=== PATIENT | female | born 1955 | race Caucasian/White ===

== ENCOUNTER 2017-01-10 05:19 | Emergency (ER) | payer MEDICAID ==
[2017-01-10 05:35] VITALS: BP 136/89; PULSE 92; RESP 18; TEMP 98.1; O2SAT 95
--- NOTE | 2017-01-10 05:54 | EDPHY ---
H & P Time Seen by Provider: 01/10/17 05:41 HPI/ROS: HPI Out of pain medication. Out of pain medication. 61-year-old female by private vehicle. She has a history of chronic pain and chronic opiate usage. She goes to a pain clinic. She is to get refills of her narcotic pain medications today. She reports that she is currently out of pain medication an feels like she is starting to withdraw. She is apparently being cut down on her pain medications to wean her off of opiates. She states she does have clonidine at home. She complains of some burning in both her legs which she states she gets when she is not getting enough pain medication. She denies any other complaint. ROS: Constitutional: No fever, no chills. No weakness. As above. Respiratory: No cough. No shortness of breath. Cardiac: No chest pain, no palpitations. Gastrointestinal: No abdominal pain, no vomiting, no diarrhea. Musculoskeletal: As above. Neurological: No headache. No focal weakness or altered sensation. Past medical history: As above. Chronic pain, costochondritis, basal cell carcinoma, hypertension, hyperlipidemia. Social history: Here by herself. As above. Physical Exam: General Appearance: Alert, no distress. This patient is responding to questions appropriately and in full sentences. This patient appears well- hydrated and well-nourished. Neurological: Motor sensory function is grossly intact. Cranial nerves are normal. Gait is normal. Skin: Warm and dry, no rashes. Musculoskeletal: Neck is supple and nontender. Extremities are symmetrical. All joints range without pain or impingement. Psychiatric: No agitation. No depression. Database: EKG: Imaging: Procedures: Emergency department course: Her vital signs were reviewed. During my evaluation I explained to her that I did not feel comfortable giving her narcotic pain medications at this time in the emergency department. She does not appear to be in any distress. Her vital signs are unremarkable. She has follow-up at her pain clinic today to get refills of her narcotic pain medications. She understood my reasoning for not giving her any narcotics in the emergency department. She fell comfortable going home. She will follow up as she is supposed to to refill her prescriptions. All of her questions were answered. She was discharged in good condition. Differential Diagnosis: The differential diagnosis on this patient includes but is not limited to chronic narcotic pain medication dependence. Acute withdrawal syndrome unlikely. This represents a partial list of diagnoses considered. These considerations are based on history, physical exam, past history, reassessment and diagnostic testing. Smoking Status: Heavy smoker Constitutional: Initial Vital Signs Temperature (C) 36.7 C 01/10/17 05:25 Heart Rate 92 01/10/17 05:25 Respiratory Rate 18 01/10/17 05:25 Blood Pressure 136/89 H 01/10/17 05:25 O2 Sat (%) 95 01/10/17 05:25 O2 Delivery Mode Room Air Allergies/Adverse Reactions: ciprofloxacin Allergy (Verified 01/10/17 05:36) codeine Allergy (Verified 01/10/17 05:36) fentanyl Allergy (Verified 01/10/17 05:36) nitrofurantoin [From Macrobid] Allergy (Verified 01/10/17 05:36) nitrofurantoin macrocrystalline [From Macrobid] Allergy (Verified 01/10/17 05:36 ) Home Medications: Medication Instructions Recorded Acetaminophen [Tylenol] 500 mg PO TID PRN 02/16/16 Atorvastatin Calcium [Lipitor] 40 mg PO DAILY 02/16/16 Clopidogrel Bisulfate [Clopidogrel] 75 mg PO DAILY 02/16/16 Herbals/Supplements -Info Only 1 ea PO DAILY 02/16/16 Metoprolol Tartrate [Lopressor] 25 mg PO DAILY 02/16/16 Ondansetron HCl [Zofran] 4 mg PO Q6 PRN 02/16/16 Pantoprazole Sodium [Protonix] 40 mg PO DAILY 02/16/16 hydrOXYzine HCL [Vistaril] 25 mg PO HS 02/16/16 morphINE IR [morphINE IR 15 mg 15 mg PO TID PRN 02/16/16 (RX)] oxyCODONE HCL [Oxycontin] 60 mg PO BID 02/16/16 oxyCODONE IR [Oxycodone Ir (RX)] 30 mg PO TID PRN 02/16/16 Azithromycin 250 mg PO DAILY #5 tablet 08/30/16 Departure - Departure Disposition: Home, Routine, Self-Care Clinical Impression: Narcotic dependence Condition: Good Instructions: Narcotic Pain Management (ED) Additional Instructions: Read and follow provided instructions. Follow-up as scheduled today for refill of your prescription pain medications. Take medication as prescribed. Return to the emergency department for worsening symptoms or other serious concerns. Referrals: Juventino Bliss, [Primary Care Provider] - As per Instructions
== END 2017-01-10 05:45 | disposition home or self-care (01) ==
DX: F11.20 Opioid dependence, uncomplicated (principal); I10 Essential (primary) hypertension; F17.200 Nicotine dependence, unspecified, uncomplicated; Z85.828 Personal history of other malignant neoplasm of skin

== ENCOUNTER 2017-05-07 13:29 | Emergency (ER) | payer MEDICAID ==
[2017-05-07 13:38] VITALS: BP 123/85; PULSE 124; RESP 25; TEMP 98.2
[2017-05-07 14:46] VITALS: O2SAT 86
--- NOTE | 2017-05-07 14:51 | EDPHY ---
H & P Time Seen by Provider: 05/07/17 14:35 HPI/ROS: CHIEF COMPLAINT: Right-sided rib pain HISTORY OF PRESENT ILLNESS: This patient is a 61 year old female with history or COPD complaining of right sided rib pain and a 3 day history of worsening cough and shortness of breath. She states that she generally has a cough, but that it has been harder to breathe over the past week, and her right side began to hurt a few days ago. She endorses subjective fever, chills, and runny nose also beginning around three days ago. She does use an inhaler as needed to treat symptoms of COPD, but states she is not currently on home oxygen. She is tachycardic, which she states is abnormal for her. She denies pain or swelling in her calves, or history of blood clots. She states she is seen at the pain clinic for chronic back and foot pain and neuropathy, but her pain medication has not relieved the new pain in her right side. REVIEW OF SYSTEMS: Constitutional: Subjective fever, chills Eyes: No visual changes ENT: Rhinorrhea, no sore throat Respiratory: Cough, shortness of breath Cardiac: Tachycardic Gastrointestinal: No nausea, no vomiting, no abdominal pain Genitourinary: No hematuria, no dysuria Musculoskeletal: Right sided rib pain. No leg pain or swelling Skin: No rash Neurological: No headache, no numbness, no weakness Psychiatric: No depression Past Medical/Surgical History: COPD (Inhaler prn) Chronic back and foot pain (Oxycodone) Neuropathy Coronary artery disease (formerly on Plavix) Cholecystectomy Social History: Current smoker. Smoking Status: Heavy smoker Physical Exam: General Appearance: Alert, no distress. Eyes: Pupils equal and round, no conjunctival pallor or injection ENT, Mouth: Mucous membranes moist Neck: Normal inspection Respiratory: Lungs are clear to auscultation. SpO2 90 Cardiovascular: Regular tachycardia. Chest: Tenderness to right lower anterior ribs. Gastrointestinal: Abdomen is soft and non- tender Neurological: A&O, nonfocal, normal gait Skin: Warm and dry, no rash Extremities: Nontender, no pedal edema Psychiatric: Mood and affect normal Constitutional: Initial Vital Signs Temperature (C) 36.8 C 05/07/17 13:36 Heart Rate 124 H 05/07/17 13:36 Respiratory Rate 25 H 05/07/17 13:36 Blood Pressure 123/85 H 05/07/17 13:36 O2 Sat (%) 90 L 05/07/17 13:36 O2 Delivery Mode Room Air Allergies/Adverse Reactions: ciprofloxacin Allergy (Verified 01/10/17 05:36) codeine Allergy (Verified 01/10/17 05:36) fentanyl Allergy (Verified 01/10/17 05:36) nitrofurantoin [From Macrobid] Allergy (Verified 01/10/17 05:36) nitrofurantoin macrocrystalline [From Macrobid] Allergy (Verified 01/10/17 05:36 ) Home Medications: Medication Instructions Recorded Acetaminophen [Tylenol] 500 mg PO TID PRN 02/16/16 Atorvastatin Calcium [Lipitor] 40 mg PO DAILY 02/16/16 Herbals/Supplements -Info Only 1 ea PO DAILY 02/16/16 Metoprolol Tartrate [Lopressor] 25 mg PO DAILY 02/16/16 Ondansetron HCl [Zofran] 4 mg PO Q6 PRN 02/16/16 Pantoprazole Sodium [Protonix] 40 mg PO DAILY 02/16/16 hydrOXYzine HCL [Vistaril] 25 mg PO HS 02/16/16 morphINE IR [morphINE IR 15 mg 15 mg PO TID PRN 02/16/16 (RX)] oxyCODONE HCL [Oxycontin] 60 mg PO BID 02/16/16 oxyCODONE IR [Oxycodone Ir (RX)] 30 mg PO TID PRN 02/16/16 Proair Hfa 05/07/17 Medical Decision Making - Diagnostics Imaging Results: Imaging Impressions Chest X-Ray 05/07/17 15:01 Impression: 1. New 3 cm left lower lobe lung mass. Recommend chest CT with IV contrast for further evaluation. 2. Chronic coronary artery disease. 3. COPD. 4. No source for right upper quadrant pain identified. If the patient receives a chest CT, consider including the abdomen and pelvis. Results discussed with Dr. Kwok. ED Course/Re-evaluation: Clinical presentation concerning for pneumonia versus pulmonary embolism. Chest x-ray obtained and reveals atelectasis at the left base, but no evidence of infiltrate. D-dimer is elevated at 1.38, so CT pulmonary angiogram ordered to rule out pulmonary embolism. 16:19 Reassessed patient. Explained the laboratory and x-ray findings. There is no evidence of pneumonia and D-dimer is elevated. I suspect that she has a pulmonary embolism. CT pulmonary angiogram ordered. The patient is reluctant to have this test because of claustrophobia. She agrees to having the test after IV Ativan. 16:26 this patient left the emergency department without letting anyone know. We attempted to locate her, but she was not on the hospital grounds. Differential Diagnosis: Differential diagnosis includes though it is not limited to pneumonia, pneumothorax, pulmonary embolism, aortic dissection, pericarditis, acute coronary syndrome. - Data Points Laboratory Results: Laboratory Results 05/07/17 14:30 05/07/17 14:30 05/07/17 05/07/17 05/07/17 14:30 14:30 14:30 WBC 13.50 10^3/uL H 10^3/uL (3.80-9.50) RBC 5.26 10^6/uL 10^6/uL (4.18-5.33) Hgb 12.7 g/dL g/dL (12.6-16.3) Hct 41.0 % % (38.0-47.0) MCV 77.9 fL L fL (81.5-99.8) MCH 24.1 pg L pg (27.9-34.1) MCHC 31.0 g/dL L g/dL (32.4-36.7) RDW 22.5 % H % (11.5-15.2) Plt Count 590 10^3/uL H 10^3/uL (150-400) MPV 9.0 fL fL (8.7-11.7) Neut % (Auto) 77.5 % H % (39.3-74.2) Lymph % (Auto) 11.6 % L % (15.0-45.0) [place] % (Auto) 9.9 % % (4.5-13.0) Eos % (Auto) 0.1 % L % (0.6-7.6) Baso % (Auto) 0.4 % % (0.3-1.7) Nucleat RBC Rel Count 0.0 % % (0.0-0.2) Absolute Neuts (auto) 10.45 10^3/uL H 10^3/uL (1.70-6.50) Absolute Lymphs (auto) 1.57 10^3/uL 10^3/uL (1.00-3.00) Absolute Monos (auto) 1.34 10^3/uL H 10^3/uL (0.30-0.80) Absolute Eos (auto) 0.02 10^3/uL L 10^3/uL (0.03-0.40) Absolute Basos (auto) 0.05 10^3/uL 10^3/uL (0.02-0.10) Absolute Nucleated RBC 0.00 10^3/uL 10^3/uL (0-0.01) Immature Gran % 0.5 % % (0.0-1.1) Immature Gran # 0.07 10^3/uL 10^3/uL (0.00-0.10) Platelet Estimate INCREASED H (ADEQ) Polychromasia 1+ H Hypochromasia 2+ H Microcytic Cells 2+ H Oval Macrocytes 1+ H D-Dimer 1.38 ug/mLFEU H ug/mLFEU (0.00-0.50) Sodium 142 mEq/L mEq/L (134-144) Potassium 4.8 mEq/L mEq/L (3.5-5.2) Chloride 105 mEq/L mEq/L (97-110) Carbon Dioxide 23 mEq/l mEq/l (22-31) Anion Gap 14 mEq/L mEq/L (8-16) BUN 12 mg/dL mg/dL (7-23) Creatinine 0.8 mg/dL mg/dL (0.6-1.0) Estimated GFR > 60 Glucose 105 mg/dL H mg/dL (70-100) Calcium 9.6 mg/dL mg/dL (8.5-10.4) Medications Given: Discontinued Medications Albuterol/Ipratropium (Duoneb) 3 ml IH EDNOW ONE Stop: 05/07/17 15:02 Last Admin: 05/07/17 15:24 Dose: 3 ml Methylprednisolone Sodium Succinate (Solu-Medrol) 125 mg IVP EDNOW ONE Stop: 05/07/17 15:02 Last Admin: 05/07/17 15:24 Dose: 125 mg Departure - Departure Disposition: Against Medical Advice Clinical Impression: Acute dyspnea Referrals: Juventino Bliss DO [Primary Care Provider] - As per Instructions Report Scribed for: Jaimee Kwok Report Scribed by: Marie Paul Date of Report: 05/07/17 Time of Report: 14:51 Physician Review and Approval Statement: 05/07/17 14:51 Portions of this note were transcribed by a medical physiologist. I personally performed a history, physical exam, medical decision making, and confirmed accuracy of information the transcribed note.
[2017-05-07] MEDS ORDERED: IPRATROPIUM/ALBUTEROL 3 ML DEYVIAL IH ONE (15:01)
[2017-05-07] MEDS ORDERED: methylPREDNISolone SOD SUCC 125 MG/2 ML VIAL IVP ONE (15:01)
[2017-05-07 15:08] LABS: % IMMATURE GRANULYOCYTES 0.5 % (0.0-1.1); ABSOLUTE IMMATURE GRANULOCYTES 0.07 10^3/uL (0.00-0.10); ADD DIFF? NO; ADD MORPH? YES; ADD SCAN? NO; ATYPICAL LYMPHOCYTE FLAG 0 (0-99); FRAGMENT RBC FLAG 20 (0-99); HEMOGLOBIN 12.7 g/dL (12.6-16.3); LEFT SHIFT FLG 10 (0-99); LIPEMIA HEMOLYSIS FLAG 80 (0-99); MEAN CELL HEMOGLOBIN 24.1 pg (27.9-34.1); MEAN CELL VOLUME 77.9 fL (81.5-99.8); PLATELET CLUMPS FLAG 10 (0-99); PLATELET COUNT 590 10^3/uL (150-400); RED BLOOD CELL COUNT 5.26 10^6/uL (4.18-5.33)
[2017-05-07 15:20] LABS: RED CELL DISTRIBUTION WIDTH 22.5 % (11.5-15.2)
[2017-05-07 15:24] LABS: ANION GAP 14 mEq/L (8-16); CALCIUM 9.6 mg/dL (8.5-10.4); CARBON DIOXIDE 23 mEq/l (22-31); CHLORIDE 105 mEq/L (97-110); CREATININE 0.8 mg/dL (0.6-1.0); GLOMERULAR FILTRATION RATE > 60; GLUCOSE 105 mg/dL (70-100); POTASSIUM 4.8 mEq/L (3.5-5.2); SODIUM 142 mEq/L (134-144)
[2017-05-07 15:45] LABS: HYPOCHROMIA 2+; MACROCYTES 1+; MICROCYTES 2+; PLATELET ESTIMATE INCREASED (ADEQ); POLYCHROMASIA 1+
[2017-05-07] MEDS ORDERED: IOPAMIDOL (ISOVUE 370) 100 ML BTL IV ONE (16:06)
[2017-05-07] MEDS ORDERED: LORazepam 2 MG/ML INJ ONE (16:23)
== END 2017-05-07 16:35 | disposition left against medical advice (07) ==
DX: R06.00 Dyspnea, unspecified (principal); J44.9 Chronic obstructive pulmonary disease, unspecified; I25.10 Atherosclerotic heart disease of native coronary artery without angina pectoris; F17.200 Nicotine dependence, unspecified, uncomplicated
CPT/HCPCS: 96374; J2060; Q9967

== ENCOUNTER 2017-05-09 10:30 | Inpatient (IN) | payer MEDICAID ==
[2017-05-09] MEDS ORDERED: LORazepam 2 MG/ML INJ IVP ONE (11:26)
--- NOTE | 2017-05-09 11:26 | EDPHY ---
H & P Time Seen by Provider: 05/09/17 10:56 HPI/ROS: CHIEF COMPLAINT: Positive blood culture HISTORY OF PRESENT ILLNESS: 61 year old female with COPD returns to the emergency department for a positive blood culture. She was seen by me 2 days ago for right-sided chest pain and cough. Her initial evaluation revealed an elevated D-dimer. Chest x-ray was concerning for a left sided mass, but no evidence of pneumonia. I suggested a CT scan, but the patient became worried about having a CT scan and left the emergency department against medical advice. Blood cultures were drawn at that visit and today 1 bottle returned positive for gram-positive cocci. Since her prior emergency department visit, she continues to have right-sided chest pain. The chest pain increases with deep inspiration. Associated with a cough productive of whitish and blood-tinged sputum. The shortness of breath has improved in the last couple days. She denies fever, nausea, vomiting, or other associated symptoms. REVIEW OF SYSTEMS: Constitutional: No fever, no chills Eyes: No visual changes ENT: No sore throat Respiratory: Cough, shortness of breath Cardiac: Right-sided chest pain. Gastrointestinal: No nausea, no vomiting, no abdominal pain Genitourinary: No hematuria, no dysuria Musculoskeletal: No leg pain or swelling Skin: No rash Neurological: No headache, no weakness Psychiatric: No depression Past Medical/Surgical History: Coronary artery disease (formerly on Plavix) Cholecystectomy COPD (Inhaler prn) Chronic back and foot pain (Oxycodone) Neuropathy Social History: Current smoker. Friend at bedside. Smoking Status: Heavy smoker Physical Exam: General Appearance: Alert, nontoxic-appearing Eyes: Pupils equal and round, no conjunctival pallor or injection ENT, Mouth: Mucous membranes moist Neck: Normal inspection Respiratory: Lungs are clear to auscultation Cardiovascular: Regular rate and rhythm Gastrointestinal: Abdomen is soft and non-tender Neurological: A&O, nonfocal, normal gait Skin: Warm and dry, no rash Extremities: Nontender, no pedal edema Psychiatric: Mood and affect normal Constitutional: Initial Vital Signs Temperature (C) 36.8 C 05/09/17 10:42 Heart Rate 75 05/09/17 10:42 Respiratory Rate 22 H 05/09/17 10:42 Blood Pressure 118/70 05/09/17 10:42 O2 Sat (%) 93 05/09/17 10:42 O2 Delivery Mode Room Air Allergies/Adverse Reactions: ciprofloxacin Allergy (Verified 05/09/17 10:42) codeine Allergy (Verified 05/09/17 10:42) fentanyl Allergy (Verified 05/09/17 10:42) nitrofurantoin [From Macrobid] Allergy (Verified 05/09/17 10:42) nitrofurantoin macrocrystalline [From Macrobid] Allergy (Verified 05/09/17 10:42 ) Home Medications: Medication Instructions Recorded Atorvastatin Calcium [Lipitor] 40 mg PO DAILY 02/16/16 Herbals/Supplements -Info Only 1 ea PO DAILY 02/16/16 Ondansetron HCl [Zofran] 4 mg PO Q6 PRN 02/16/16 Pantoprazole Sodium [Protonix] 40 mg PO BID 02/16/16 hydrOXYzine HCL [Vistaril] 25 mg PO HS 02/16/16 oxyCODONE IR [Oxycodone Ir (RX)] 30 mg PO QID PRN 02/16/16 Albuterol [Proventil Inhaler HFA 1 - 2 puffs IH DAILY PRN 05/07/17 (*)] Metoprolol Tartrate [Lopressor 25 12.5 mg PO BID 05/09/17 mg (*)] Medical Decision Making - Diagnostics Imaging Results: Imaging Impressions Chest X-Ray 05/09/17 11:10 Impression: 1. Right lung remains clear. No explanation for right-sided pain. 2. No pneumonia or effusion. 3. Left lower lobe mass and left basilar atelectasis versus scarring are unchanged. Chest/Thorax CTA 05/09/17 11:26 Impression: 1. 2 small right segmental pulmonary emboli , one of which correlates to a small pulmonary infarct. 2. Findings suspicious for either left lung primary neoplasm , pleural metastatic disease or possibly "round atelectasis". Is there history of known cancer? This could be biopsied under CT guidance, if clinically indicated. 3e. Coronary artery disease A message was left to Angeline Harris for JAIMEE Florez ANT, at 05/09/2017 12:59 General information for patients regarding this examination can be found at [email or web address]. If you have questions or comments about this report, please contact me at [phone] (hospital) or [phone] (cell). ED Course/Re-evaluation: This patient is a 61 year old female returning to the emergency department for a positive blood culture. She does not appear septic and I suspect that the positive blood culture was a contaminant. Repeat blood cultures were drawn. Chest x-ray unchanged from 05/07/17. After some discussion, the patient agrees to CTA. Ativan 1 mg IV given prior to CT scan. 13:00 CTA reveals right-sided pulmonary emboli, pulmonary infarction and probable left-sided lung cancer. CT scan results were discussed with the patient. 13:07 consulted with hospitalist service. Dr. Toussaint accepts admission for management of pulmonary embolism. Plan to start patient on IV heparin as she will likely have a lung biopsy during this admission. Differential Diagnosis: Differential diagnosis includes though it is not limited to pneumonia, pneumothorax, pulmonary embolism, aortic dissection, pericarditis, acute coronary syndrome. - Data Points Laboratory Results: Laboratory Results 05/09/17 11:25 05/09/17 11:25 05/09/17 05/09/17 05/09/17 11:25 11:25 11:25 WBC RBC Hgb Hct MCV MCH MCHC RDW Plt Count MPV Neut % (Auto) Lymph % (Auto) [place] % (Auto) Eos % (Auto) Baso % (Auto) Nucleat RBC Rel Count Absolute Neuts (auto) Absolute Lymphs (auto) Absolute Monos (auto) Absolute Eos (auto) Absolute Basos (auto) Absolute Nucleated RBC Immature Gran % Immature Gran # Platelet Estimate Polychromasia Hypochromasia Microcytic Cells Tear Drop Cells PT 13.1 SEC SEC (12.0-15.0) INR 1.00 (0.83-1.16) APTT 29.1 SEC SEC (23.0-38.0) D-Dimer 1.51 ug/mLFEU H ug/mLFEU (0.00-0.50) VBG Lactic Acid Sodium 143 mEq/L mEq/L (134-144) Potassium 4.6 mEq/L mEq/L (3.5-5.2) Chloride 105 mEq/L mEq/L (97-110) Carbon Dioxide 25 mEq/l mEq/l (22-31) Anion Gap 13 mEq/L mEq/L (8-16) BUN 18 mg/dL mg/dL (7-23) Creatinine 0.9 mg/dL mg/dL (0.6-1.0) Estimated GFR > 60 Glucose 82 mg/dL mg/dL (70-100) Calcium 9.4 mg/dL mg/dL (8.5-10.4) 05/09/17 05/09/17 11:25 11:25 WBC 11.84 10^3/uL H 10^3/uL (3.80-9.50) RBC 5.17 10^6/uL 10^6/uL (4.18-5.33) Hgb 12.5 g/dL L g/dL (12.6-16.3) Hct 40.6 % % (38.0-47.0) MCV 78.5 fL L fL (81.5-99.8) MCH 24.2 pg L pg (27.9-34.1) MCHC 30.8 g/dL L g/dL (32.4-36.7) RDW 22.2 % H % (11.5-15.2) Plt Count 590 10^3/uL H 10^3/uL (150-400) MPV 8.8 fL fL (8.7-11.7) Neut % (Auto) 71.6 % % (39.3-74.2) Lymph % (Auto) 18.6 % % (15.0-45.0) [place] % (Auto) 8.4 % % (4.5-13.0) Eos % (Auto) 0.8 % % (0.6-7.6) Baso % (Auto) 0.3 % % (0.3-1.7) Nucleat RBC Rel Count 0.0 % % (0.0-0.2) Absolute Neuts (auto) 8.48 10^3/uL H 10^3/uL (1.70-6.50) Absolute Lymphs (auto) 2.20 10^3/uL 10^3/uL (1.00-3.00) Absolute Monos (auto) 0.99 10^3/uL H 10^3/uL (0.30-0.80) Absolute Eos (auto) 0.09 10^3/uL 10^3/uL (0.03-0.40) Absolute Basos (auto) 0.04 10^3/uL 10^3/uL (0.02-0.10) Absolute Nucleated RBC 0.00 10^3/uL 10^3/uL (0-0.01) Immature Gran % 0.3 % % (0.0-1.1) Immature Gran # 0.04 10^3/uL 10^3/uL (0.00-0.10) Platelet Estimate INCREASED H (ADEQ) Polychromasia 1+ H Hypochromasia 1+ H Microcytic Cells 1+ H Tear Drop Cells 1+ H PT INR APTT D-Dimer VBG Lactic Acid 1.3 mmol/L mmol/L (0.7-2.1) Sodium Potassium Chloride Carbon Dioxide Anion Gap BUN Creatinine Estimated GFR Glucose Calcium Medications Given: Discontinued Medications Heparin Sodium (Porcine) (Heparin Injection) 0 unit IVP EDNOW ONE PRN Reason: Protocol Stop: 05/09/17 13:10 Last Admin: 05/09/17 14:00 Dose: 4,600 units Heparin Sodium (Porcine) (Heparin 50 Units/Ml (Premix)) 500 mls @ 0 mls/hr IV EDNOW ONE; Per Protocol PRN Reason: Protocol Stop: 05/09/17 13:10 Last Admin: 05/09/17 14:00 Dose: 500 mls Lorazepam (Ativan Injection) 1 mg IVP EDNOW ONE Stop: 05/09/17 11:27 Last Admin: 05/09/17 12:00 Dose: 1 mg Departure - Departure Disposition: [facility] In[facility] Acute Clinical Impression: Pulmonary embolism Qualifiers: Pulmonary embolism type: other Chronicity: acute Acute cor pulmonale presence: without acute cor pulmonale Qualified Code(s): I26.99 - Other pulmonary embolism without acute cor pulmonale Condition: Fair Report Scribed for: Jaimee Kwok Report Scribed by: Marie Paul Date of Report: 05/09/17 Time of Report: 12:26 Physician Review and Approval Statement: 05/09/17 12:26 Portions of this note were transcribed by a medical insurance coding specialist. I personally performed a history, physical exam, medical decision making, and confirmed accuracy of information the transcribed note.
[2017-05-09 11:40] LABS: % IMMATURE GRANULYOCYTES 0.3 % (0.0-1.1); ABSOLUTE IMMATURE GRANULOCYTES 0.04 10^3/uL (0.00-0.10); ADD DIFF? NO; ADD MORPH? YES; ADD SCAN? NO; ATYPICAL LYMPHOCYTE FLAG 0 (0-99); FRAGMENT RBC FLAG 20 (0-99); HEMATOCRIT 40.6 % (38.0-47.0); HEMOGLOBIN 12.5 g/dL (12.6-16.3); LEFT SHIFT FLG 0 (0-99); LIPEMIA HEMOLYSIS FLAG 80 (0-99); MEAN CELL HEMOGLOBIN 24.2 pg (27.9-34.1); MEAN CELL HEMOGLOBIN CONCENTR. 30.8 g/dL (32.4-36.7); MEAN CELL VOLUME 78.5 fL (81.5-99.8); MEAN PLATELET VOLUME 8.8 fL (8.7-11.7); PLATELET CLUMPS FLAG 0 (0-99); PLATELET COUNT 590 10^3/uL (150-400); RED BLOOD CELL COUNT 5.17 10^6/uL (4.18-5.33)
[2017-05-09 11:42] LABS: RED CELL DISTRIBUTION WIDTH 22.2 % (11.5-15.2)
[2017-05-09] MEDS ORDERED: IOPAMIDOL (ISOVUE-300) 100 ML BTL ONE (11:43)
[2017-05-09 11:53] LABS: ANION GAP 13 mEq/L (8-16); CALCIUM 9.4 mg/dL (8.5-10.4); CARBON DIOXIDE 25 mEq/l (22-31); CHLORIDE 105 mEq/L (97-110); CREATININE 0.9 mg/dL (0.6-1.0); GLOMERULAR FILTRATION RATE > 60; GLUCOSE 82 mg/dL (70-100); POTASSIUM 4.6 mEq/L (3.5-5.2); SODIUM 143 mEq/L (134-144)
[2017-05-09 12:26] LABS: MICROCYTES 1+
[2017-05-09 12:27] LABS: HYPOCHROMIA 1+; PLATELET ESTIMATE INCREASED (ADEQ); POLYCHROMASIA 1+
[2017-05-09] MEDS ORDERED: HEPARIN 10,000 UNIT/10 ML MDV IVP ONE ×3 (13:09→14:12)
[2017-05-09] MEDS ORDERED: HEPARIN/DEXTROSE 500 ML IV ONE (13:09)
[2017-05-09 13:23] LABS: PROTIME(PATIENT) 13.1 SEC (12.0-15.0)
[2017-05-09 13:24] LABS: APTT 29.1 SEC (23.0-38.0)
[2017-05-09] MEDS ORDERED: HEPARIN 10,000 UNIT/10 ML MDV IVP PRN ×2 (14:12→14:24)
[2017-05-09] MEDS ORDERED: ONDANSETRON DISINTEGRATING 4 MG TAB PO PRN (14:13)
[2017-05-09] MEDS ORDERED: ONDANSETRON 4 MG/2 ML VIAL IVP PRN (14:13)
[2017-05-09] MEDS ORDERED: ACETAMINOPHEN 325 MG TAB PO PRN (14:13)
[2017-05-09] MEDS ORDERED: HEPARIN/DEXTROSE 500 ML IV SCH (14:15)
--- NOTE | 2017-05-09 14:50 | GHP ---
[f rep st] HISTORY AND PHYSICAL DATE OF ADMISSION: 05/09/2017 CHIEF COMPLAINT: Right-sided chest pain. HISTORY OF PRESENT ILLNESS: This is a 61-year-old female with a long history of chronic pain who pr esents with recently changing chest pain. This is on the right lateral aspect of her chest. She wa s seen in the emergency department 2 days prior to admission for the same thing. At that point, a C T angiogram of her chest was recommended, however, she declined this and left AMA. She notably had blood cultures drawn at that time, 1 out of 2 is growing Coag-negative staph. She was actually call ed back today because of the positive culture, but reported ongoing right-sided chest pain. Thus, s he presented to the ED. It is described as stabbing, pleuritic pain associated with some shortness of breath. CT also showed left base lung mass. 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 She saw Dr. Glez once for this, who recommended a repeat colonoscopy in 6 months. However, she has not followed up with that. PAST MEDICAL/SURGICAL HISTORY: 1. Coronary artery disease status post percutaneous stent in October of 2014. 2. COPD. 3. Tobacco use. 4. Chronic pain on continuous narcotics. 5. Cholecystectomy. 6. Neuropathy. MEDICATIONS: Please see medication reconciliation. ALLERGIES: Ciprofloxacin, codeine, fentanyl, Macrobid. FAMILY HISTORY: She is adopted. REVIEW OF SYSTEMS: 10-point review of systems is conducted, and is negative except per HPI. SOCIAL HISTORY: She does not drink. She is a lifelong smoker of about a pack a day since she was [age] years old. PHYSICAL EXAM: VITAL SIGNS: Blood pressure is 94/70, heart rate 71, respiration rate 16, saturatin g 97% on room air, temperature is 36.8. GENERAL: This is a pleasant female who appears comfortable , in no acute distress. HEENT: Normocephalic, atraumatic. LYMPH: No cervical, supraclavicular, s ubclavicular lymphadenopathy. CARDIOVASCULAR: Regular rate and rhythm. No murmurs, rubs, or chung ps. PULMONARY: Very diminished breath sounds bilaterally. I do not appreciate any murmurs, rubs, or gallops. She is not in any respiratory distress. ABDOMEN: Soft, nontender, nondistended. SKIN : No rash. : No Menendez. NEUROLOGIC: Alert and oriented x3. She is moving all extremities. PS YCHIATRIC: Normal mood and affect. LABORATORY DATA: White count is 11.8, hemoglobin is 12.5, INR is 1.0. D-dimer is 1.5. Venous lact ate is 1.3. Basic metabolic panel is normal. DATA: 1. I discussed with Dr. Nix. He will plan to see her in consultation. 2. A personally reviewed and interpreted her CT angiogram, as well as her chest x-ray. This shows right basilar pulmonary embolic disease, as well as a left base mass. IMPRESSION AND PLAN: 61-year-old female with a new lung mass, as well as a PE. 1. Pulmonary embolism. We will place her on unfractionated heparin tonight. She is hemodynamicall y stable. She is somewhat high risk because of potentially new cancer. 2. Left base lung mass: Need a tissue diagnosis. This is interesting in the fact that she had a c arcinoid tumor found last September in her rectum on a screening colonoscopy. Will arrange for a CT- guided biopsy tomorrow. Will need to coordinate holding her heparin around this with nursing. I nolan ve discussed this with Dr. Nix, who agrees and will consult. 3. Positive blood culture: Strongly suspect this is a contaminant. Will not target with antibioti cs. Repeat blood culture has been drawn in the ED. Would just follow this for now. It was a Coag- negative Staph. 4. Tobacco use. She requests a nicotine patch. I will provide this for her. 5. Claustrophobia: She will need Ativan with her biopsy. I have written her to have this. 6. Chronic obstructive pulmonary disease: She is currently not on oxygen. She does not appear to be in acute exacerbation. 7. Coronary artery disease: She is on aspirin, not Plavix. Will continue her other cardiac medica tions. I believe the chest pain is related to her PE and not her heart. 8. Chronic pain on continuous narcotics: Will continue her high-dose oxycodone. /[id number]/MODL
[2017-05-09] MEDS: NICOTINE 21 MG/24 HR PATCH TD SCH (15:00)
[2017-05-09] MEDS ORDERED: ALBUTEROL 60 PUFFS/8 GM MDI IH PRN (15:26)
[2017-05-09] MEDS: HEPARIN/DEXTROSE 500 ML IV SCH (16:44)
--- NOTE | 2017-05-09 17:10 | GCON ---
[f rep st] CONSULTATION INPATIENT ONCOLOGY CONSULTATION DATE OF CONSULTATION: 05/09/2017 REFERRING PHYSICIAN: Sanjeev Toussaint MD REASON FOR CONSULTATION: Lung mass and pulmonary embolism. HISTORY OF PRESENT ILLNESS: The patient is a 61-year-old woman who presents with newly diagnosed sams bsegmental pulmonary embolism and is incidentally noted left lower lung mass. She says that she has had some pleuritic chest pain for the past several days. She was seen in the emergency department, and a chest x-ray revealed what appeared to be a mass in the left lower lobe which is the opposite side from her pain. She left against medical advice, but returned later today. A CT angiogram reve aled some subsegmental pulmonary emboli in the right lower lobe with a possible infarction, likely e xplaining the patient's pain. In addition, there was a 2.5 cm left lower lung mass with an adjacent 1.5 cm pleural-based mass. There was no apparent mediastinal or hilar adenopathy. She has had a c ough but no other symptoms, including hemoptysis. She does smoke 1 pack per day. Of note, she had a rectal polyp removed in 2015, which was shown to contain a very small subcentimeter carcinoid tumo r. She had seen my colleague, Dr. Gutiérrez, several months before that regarding iron deficiency anemi a. She does not believe any cause of the anemia was found on her endoscopy. She continues to have evidence of iron deficiency today with a hemoglobin is 12.5, MCV of 78.5, and thrombocytosis. PAST MEDICAL HISTORY: 1. Myocardial infarction in 2013, status post stent placement. 2. COPD, not oxygen dependent. 3. Chronic low back pain. She receives narcotic medications through [facility]. CURRENT MEDICATIONS: Include inhalers, Lipitor, unfractionated heparin, hydroxyzine 25 mg p.o. at b edtime, metoprolol 12.5 mg b.i.d., NicoDerm patch, and oxycodone 30 mg p.o. q.6 hours. ALLERGIES: She is allergic to Macrobid, ciprofloxacin, and by report codeine and fentanyl. FAMILY HISTORY: She is adopted. SOCIAL HISTORY: She smokes 1 pack per day. She denies alcohol use. She lives with her . REVIEW OF SYSTEMS: Other than the pertinent positives listed in the HPI, 14-point review of systems negative. PHYSICAL EXAMINATION: VITAL SIGNS: Temperature was 36.8, blood pressure 108/75, heart rate 77, oxy gen saturation 95% on room air. GENERAL: She is in no acute distress. She is breathing comfortabl y. HEENT: Sclerae anicteric. Oropharynx is clear. NECK: Supple, without lymphadenopathy. LUNGS : Notable for distant breath sounds. There was a rub at right lower base. CARDIAC: Regular rate and rhythm. No murmurs, gallops, rubs. ABDOMEN: Normal bowel sounds. Nontender. Nondistended. EXTREMITIES: Without edema, 2+ pulses. NEUROLOGICAL: She is alert and oriented x3. Strength, sen sation, and gait were normal. LABORATORY DATA: White count 11.8, hemoglobin 12.5, platelets of 590. Basic metabolic panel was wi thin normal limits. IMPRESSION: This is a 61-year-old smoker with a newly noted left lower lobe lung mass. This is hig hly suspicious for a primary lung cancer. She also has a pulmonary embolism which could have been t riggered by the malignancy. She also has iron deficiency which is likely unrelated, but could be fu rther increased risk of thrombosis. I doubt this is metastatic carcinoid tumor because the original tumor was extremely small. RECOMMENDATIONS: 1. She will need therapeutic anticoagulation for at least 6 months. She is on unfractionated hepar in now, and she will be transitioned to warfarin at discharge. I do not believe that a novel antico agulant such as Xarelto will be covered by her insurance. 2. She needs a tissue biopsy to confirm that this is a non-small cell lung cancer and do additional molecular typing, as well as testing for PD-L1 expression. 3. On discharge she will need a PET-CT scan to stage her. If the disease is localized to the left lower lobe, then she would be a reasonable candidate for primary surgical therapy, assuming that her pulmonary function was normal. 4. I will send iron studies again and potentially give her some intravenous iron while she is in [facility]. I do not have a clear sense of why she is persistently iron deficient. I will obtain h er previous endoscopy reports some [facility] [place]. I will also check a celiac disease panel. I thank you for this consultation. It was pleasure to meet this patient, and I appreciate the [facility] to be involved in her care. Please feel free to contact me with any additional questions or concerns. /[id number]/MODL
[2017-05-09] MEDS: morphINE SR 15 MG TAB PO SCH (20:10)
[2017-05-09] MEDS: METOPROLOL TARTRATE 25 MG TAB PO SCH (20:10)
[2017-05-09] MEDS: PANTOPRAZOLE SODIUM 40 MG TAB PO SCH (20:10)
[2017-05-09] MEDS: hydrOXYzine HCL 25 MG TAB PO SCH (21:09)
[2017-05-10] MEDS: LORazepam 0.5 MG TAB PO PRN ×3 (02:05→18:59)
[2017-05-10 02:41] LABS: % IMMATURE GRANULYOCYTES 0.3 % (0.0-1.1); ABSOLUTE IMMATURE GRANULOCYTES 0.03 10^3/uL (0.00-0.10); ADD DIFF? NO; ADD MORPH? YES; ADD SCAN? NO; ATYPICAL LYMPHOCYTE FLAG 10 (0-99); FRAGMENT RBC FLAG 20 (0-99); HEMATOCRIT 37.7 % (38.0-47.0); HEMOGLOBIN 11.8 g/dL (12.6-16.3); LEFT SHIFT FLG 0 (0-99); LIPEMIA HEMOLYSIS FLAG 80 (0-99); MEAN CELL HEMOGLOBIN 24.4 pg (27.9-34.1); MEAN CELL HEMOGLOBIN CONCENTR. 31.3 g/dL (32.4-36.7); MEAN CELL VOLUME 77.9 fL (81.5-99.8); MEAN PLATELET VOLUME 8.8 fL (8.7-11.7); PLATELET CLUMPS FLAG 0 (0-99); PLATELET COUNT 576 10^3/uL (150-400); RED BLOOD CELL COUNT 4.84 10^6/uL (4.18-5.33)
[2017-05-10 02:46] LABS: RED CELL DISTRIBUTION WIDTH 22.2 % (11.5-15.2)
[2017-05-10 04:14] LABS: HYPOCHROMIA 1+; MICROCYTES 1+; PLATELET ESTIMATE INCREASED (ADEQ); POLYCHROMASIA 1+
[2017-05-10 04:26] LABS: FERRITIN - BCH 13.8 ng/mL (6.2-264.0)
[2017-05-10 05:22] LABS: ALANINE AMINOTRANSFERASE 24 IU/L (9-52); ALBUMIN 4.1 g/dL (3.5-5.0); ALKALINE PHOSPHATASE 75 IU/L (38-126); ANION GAP 15 mEq/L (8-16); ASPARTATE AMINOTRANSFERASE 30 IU/L (14-46); BILIRUBIN,TOTAL 0.7 mg/dL (0.1-1.4); CALCIUM 9.2 mg/dL (8.5-10.4); CARBON DIOXIDE 23 mEq/l (22-31); CHLORIDE 106 mEq/L (97-110); CREATININE 0.8 mg/dL (0.6-1.0); GLOMERULAR FILTRATION RATE > 60; GLUCOSE 73 mg/dL (70-100); POTASSIUM 6.2 mEq/L (3.5-5.2); SODIUM 144 mEq/L (134-144); TOTAL PROTEIN 7.3 g/dL (6.3-8.2)
[2017-05-10 05:31] LABS: % SATURATION 9 % (20-55); TOTAL IRON BINDING CAPACITY 397 ug/dL (260-490)
[2017-05-10] MEDS: NICOTINE 21 MG/24 HR PATCH TD SCH (09:12)
[2017-05-10] MEDS: ATORVASTATIN CALCIUM 40 MG TAB PO SCH (09:15)
[2017-05-10] MEDS: morphINE SR 15 MG TAB PO SCH ×2 (09:15→20:44)
[2017-05-10] MEDS: METOPROLOL TARTRATE 25 MG TAB PO SCH ×2 (09:15→20:44)
[2017-05-10] MEDS: PANTOPRAZOLE SODIUM 40 MG TAB PO SCH ×2 (09:15→20:44)
[2017-05-10] MEDS: HEPARIN/DEXTROSE 500 ML IV SCH (10:48)
--- NOTE | 2017-05-10 12:28 | HOSPPROG ---
Hospitalist Progress Note Assessment/Plan: 62 yo F w h/o rectal carcinoid here w acute PE, L lung mass L lung mass: large seen on CT (images and reviewed/interp by me) concerning for CA biopsy in AM PE: mod clot burden not tachycardic on heparin gtt h/o rectal carcinoma: needs outpt colonoscopy hyperkalemia: repeat value today on telemetry dispo: inpt Subjective: anxious. tele: no events (interp by me) Objective: Vital Signs Temp Pulse Resp BP Pulse Ox 36.7 C 53 L 18 104/70 90 L 05/10/17 12:07 05/10/17 12:07 05/10/17 03:49 05/10/17 12:07 05/10/17 12:07 Laboratory Results 05/10/17 02:30 05/09/17 05/10/17 05/11/17 05:59 05:59 05:59 Intake Total 1188 Balance 1188 PT 13.1 SEC (12.0-15.0) 05/09/17 11:25 INR 1.00 (0.83-1.16) 05/09/17 11:25 - Physical Exam Constitutional: no apparent distress, appears nourished Eyes: PERRL, anicteric sclera Ears, Nose, Mouth, Throat: moist mucous membranes, hearing normal Cardiovascular: regular rate and rhythym, no murmur, rub, or gallop Respiratory: no respiratory distress, no rales or rhonchi Gastrointestinal: normoactive bowel sounds, soft, non-tender abdomen Genitourinary: no bladder fullness, No winters in urethra Skin: warm, normal color Musculoskeletal: full muscle strength, no muscle tenderness, other (R 4th toe edematous) Neurologic: AAOx3, sensation intact bilaterally Psychiatric: interacting appropriately, not anxious Lymph, Heme, Immunologic: no cervical LAD ICD10 Worksheet Patient Problems: Problems Problem Status Onset Pulmonary embolism Acute Coronary artery disease Acute NSTEMI (non-ST elevated myocardial infarction) Acute
[2017-05-10 14:20] LABS: ANION GAP 11 mEq/L (8-16); CALCIUM 9.4 mg/dL (8.5-10.4); CARBON DIOXIDE 23 mEq/l (22-31); CHLORIDE 108 mEq/L (97-110); CREATININE 0.7 mg/dL (0.6-1.0); GLOMERULAR FILTRATION RATE > 60; GLUCOSE 76 mg/dL (70-100); POTASSIUM 4.7 mEq/L (3.5-5.2); SODIUM 142 mEq/L (134-144)
[2017-05-10] MEDS: hydrOXYzine HCL 25 MG TAB PO SCH (20:44)
[2017-05-11] MEDS: LORazepam 0.5 MG TAB PO PRN ×2 (03:06→21:47)
[2017-05-11 04:45] LABS: ANION GAP 11 mEq/L (8-16); CALCIUM 9.3 mg/dL (8.5-10.4); CARBON DIOXIDE 23 mEq/l (22-31); CHLORIDE 107 mEq/L (97-110); CREATININE 0.9 mg/dL (0.6-1.0); GLOMERULAR FILTRATION RATE > 60; GLUCOSE 96 mg/dL (70-100); POTASSIUM 4.4 mEq/L (3.5-5.2); SODIUM 141 mEq/L (134-144)
[2017-05-11] MEDS: METOPROLOL TARTRATE 25 MG TAB PO SCH ×2 (09:08→20:18)
[2017-05-11] MEDS: morphINE SR 15 MG TAB PO SCH ×2 (09:08→20:18)
[2017-05-11] MEDS: NICOTINE 21 MG/24 HR PATCH TD SCH (09:08)
[2017-05-11] MEDS: HEPARIN/DEXTROSE 500 ML IV SCH (09:08)
[2017-05-11] MEDS: ATORVASTATIN CALCIUM 40 MG TAB PO SCH (09:09)
[2017-05-11] MEDS: PANTOPRAZOLE SODIUM 40 MG TAB PO SCH ×2 (09:09→20:18)
--- NOTE | 2017-05-11 09:28 | HOSPPROG ---
Hospitalist Progress Note Assessment/Plan: 62 yo F w h/o rectal carcinoid here w acute PE, L lung mass L lung mass: large seen on CT (images and reviewed/interp by me) concerning for CA biopsy today PE: mod clot burden not tachycardic on heparin gtt restart hep gtt post biopsy and long acting anticoag in am (NOac) h/o rectal carcinoma: needs outpt colonoscopy hyperkalemia: repeat value today on telemetry anxiety: prn ativan dispo: inpt Subjective: anxious. no events tele (interp by me) Objective: Vital Signs Temp Pulse Resp BP Pulse Ox 36.8 C 83 14 125/81 H 93 05/11/17 07:24 05/11/17 07:24 05/11/17 07:24 05/11/17 07:24 05/11/17 07:24 Laboratory Results 05/10/17 02:30 05/11/17 04:09 05/10/17 05/11/17 05/12/17 05:59 05:59 05:59 Intake Total 1188 730.5 Balance 1188 730.5 PT 13.1 SEC (12.0-15.0) 05/09/17 11:25 INR 1.00 (0.83-1.16) 05/09/17 11:25 - Physical Exam Constitutional: no apparent distress, appears nourished Eyes: PERRL, anicteric sclera Ears, Nose, Mouth, Throat: moist mucous membranes, hearing normal Cardiovascular: regular rate and rhythym, no murmur, rub, or gallop Respiratory: no respiratory distress, no rales or rhonchi Gastrointestinal: normoactive bowel sounds, soft, non-tender abdomen Genitourinary: No winters in urethra Skin: warm, normal color Musculoskeletal: full muscle strength, no muscle tenderness Neurologic: AAOx3, sensation intact bilaterally Psychiatric: interacting appropriately, not anxious ICD10 Worksheet Patient Problems: Problems Problem Status Onset Pulmonary embolism Acute Coronary artery disease Acute NSTEMI (non-ST elevated myocardial infarction) Acute
--- NOTE | 2017-05-11 10:34 | SOAPPROG ---
SOAP Progress Note Assessment/Plan: Assessment: 1. L lung mass, suspicious for lung cancer 2. Pulmonary embolism, likely triggered by cancer 3. Iron deficiency anemia, unclear etiology Plan: - biopsy today - will need anticoagulation for at least 6 months. NOAC or Coumadin both effective; NOAC may not be covered by Medicaid, so coumadin may be a better choice - if malignancy confirmed, will need PET-CT to stage - will need to see me in clinic after discharge to review PET and plan treatment (and to monitor INR if she is on coumadin) - giving IV iron for anemia. Celiac panel pending. 25 min spent w/ pt and in coordination of care. d/w dr padilla. 05/11/17 10:32 Subjective: tired (did not sleep well). pain in R side better. Objective: exam Gen tired but NAD, breathing comfortably Lungs quiet breath sounds CV RRR no MGR ABd: +BS NT ND Ext: 1+ edema Vital Signs Temp Pulse Resp BP Pulse Ox 36.8 C 83 14 125/81 H 93 05/11/17 08:00 05/11/17 08:00 05/11/17 08:00 05/11/17 08:00 05/11/17 08:00 Laboratory Results 05/10/17 02:30 05/11/17 04:09 05/10/17 05/11/17 05/12/17 05:59 05:59 05:59 Intake Total 1188 730.5 Balance 1188 730.5 PT 13.1 SEC (12.0-15.0) 05/09/17 11:25 INR 1.00 (0.83-1.16) 05/09/17 11:25 ICD10 Worksheet Patient Problems: Problems Problem Status Onset Pulmonary embolism Acute Coronary artery disease Acute NSTEMI (non-ST elevated myocardial infarction) Acute
[2017-05-11] MEDS ORDERED: CALCIUM CARBONATE 500 MG CHEWABLE TAB PO PRN (10:55)
[2017-05-11] MEDS: SODIUM FERRIC GLUCONAT/SUCROSE 125 MG in NS 100 ML IV SCH (11:11)
[2017-05-11] MEDS ORDERED: NALOXONE HCL 0.4 MG/ML INJ ONE (12:29)
[2017-05-11] MEDS ORDERED: FLUMAZENIL 0.5 MG/5 ML MDV IVP ONE (12:29)
[2017-05-11] MEDS ORDERED: MIDAZOLAM 2 MG/2 ML VIAL ONE (12:30)
[2017-05-11] MEDS ORDERED: HYDROmorphONE/DILAUDID 2 MG/ML INJ ONE (12:30)
--- NOTE | 2017-05-11 13:33 | POSTOPPROG ---
Post Op Note Date of Operation: 05/11/17 Surgeon: Yari Gaytan Pre-op Diagnosis: LLL mass Post-op Diagnosis: same Indication: new mass Procedure: CT guided mass biopsy Findings: cores obtained. Inf/Abcess present in the surg proc area at time of surgery?: No Depth: Superfical (Skin SQ) EBL: Minimal Complications: Very small ptx. will do follow up cxr.
[2017-05-11] MEDS ORDERED: WARFARIN SODIUM 7.5 MG TAB PO ONE (17:28)
[2017-05-11] MEDS: ENOXAPARIN 80 MG/0.8 ML SYR SC SCH ×2 (17:54→20:28)
[2017-05-11] MEDS: hydrOXYzine HCL 25 MG TAB PO SCH (20:18)
[2017-05-12 04:25] LABS: HEMATOCRIT 36.3 % (38.0-47.0); HEMOGLOBIN 11.2 g/dL (12.6-16.3); LIPEMIA HEMOLYSIS FLAG 80 (0-99); MEAN CELL HEMOGLOBIN 24.2 pg (27.9-34.1); MEAN CELL HEMOGLOBIN CONCENTR. 30.9 g/dL (32.4-36.7); MEAN CELL VOLUME 78.4 fL (81.5-99.8); PLATELET COUNT 532 10^3/uL (150-400); RED BLOOD CELL COUNT 4.63 10^6/uL (4.18-5.33)
[2017-05-12 04:33] LABS: INR 1.09 (0.83-1.16)
[2017-05-12 08:15] VITALS: RESP 13; TEMP 98.3
[2017-05-12] MEDS: PANTOPRAZOLE SODIUM 40 MG TAB PO SCH (08:34)
[2017-05-12] MEDS: morphINE SR 15 MG TAB PO SCH (08:34)
[2017-05-12] MEDS: ATORVASTATIN CALCIUM 40 MG TAB PO SCH (08:34)
[2017-05-12] MEDS: METOPROLOL TARTRATE 25 MG TAB PO SCH (08:34)
[2017-05-12] MEDS: NICOTINE 21 MG/24 HR PATCH TD SCH (08:35)
[2017-05-12] MEDS: ENOXAPARIN 80 MG/0.8 ML SYR SC SCH (08:35)
[2017-05-12] MEDS: SODIUM FERRIC GLUCONAT/SUCROSE 125 MG in NS 100 ML IV SCH (09:53)
--- NOTE | 2017-05-12 09:54 | HOSPPROG ---
Hospitalist Progress Note Assessment/Plan: 62 yo F w h/o rectal carcinoid here w acute PE, L lung mass L lung mass: large seen on CT (images and reviewed/interp by me) concerning for CA biopsy yesterday PE: mod clot burden not tachycardic on heparin gtt home on lovenox and warfarin can follow up coumadin clinic h/o rectal carcinoma: needs outpt colonoscopy hyperkalemia: repeat value today on telemetry anxiety: prn ativan dispo: inpt Subjective: s/p biopsy; results pending. very anxious for dc. case d/w Dr Bliss, her pcp Objective: Vital Signs Temp Pulse Resp BP Pulse Ox 36.8 C 67 13 99/60 L 91 L 05/12/17 07:50 05/12/17 07:50 05/12/17 07:50 05/12/17 07:50 05/12/17 07:50 Laboratory Results 05/12/17 03:53 05/11/17 04:09 05/11/17 05/12/17 05/13/17 05:59 05:59 05:59 Intake Total 730.5 800 Balance 730.5 800 PT 14.0 SEC (12.0-15.0) 05/12/17 03:53 INR 1.09 (0.83-1.16) 05/12/17 03:53 - Physical Exam Constitutional: no apparent distress, appears nourished Eyes: PERRL, anicteric sclera Ears, Nose, Mouth, Throat: moist mucous membranes, hearing normal Cardiovascular: regular rate and rhythym, no murmur, rub, or gallop Respiratory: no respiratory distress, no rales or rhonchi Gastrointestinal: normoactive bowel sounds, soft, non-tender abdomen Genitourinary: no bladder fullness, No winters in urethra Skin: warm, normal color Musculoskeletal: full muscle strength, no muscle tenderness Neurologic: AAOx3, sensation intact bilaterally ICD10 Worksheet Patient Problems: Problems Problem Status Onset Pulmonary embolism Acute Coronary artery disease Acute NSTEMI (non-ST elevated myocardial infarction) Acute
[2017-05-12 10:59] VITALS: BP 118/78; PULSE 74; O2SAT 90
--- NOTE | 2017-05-12 17:45 | GDS ---
[f rep st] DISCHARGE SUMMARY DISCHARGE DIAGNOSES: 1. Right-sided pulmonary embolism. 2. History of rectal carcinoid cancer status post resection. 3. Left lung mass status post biopsy. Path is still pending. 4. Possible small tiny postprocedural pneumothorax, now resolved. 5. Anxiety. HISTORY OF PRESENT ILLNESS: Please see admission history and physical by Dr. Sanjeev Toussaint. The patient presented with chest pain on the afternoon of May 09, 2017. She had actually been seen on May 07, 2017 with some chest pain and left AMA. She had a CT showing a right-sided pulmonary embolism with moderate clot burden, as well as a left b ase lung mass. She also has a history of coronary disease and COPD. HOSPITAL COURSE: The patient was very anxious on presentation, but ultimately got a biopsy on May 11, 2017. Path is pending. She is discharged to home on Lovenox and warfarin. I discussed with Dr. Juventino Bliss, her primary care physician. Outpatient management should be followed in the [facility]. She has outpatient followup with Annita Nix as well as Dr. Bliss, who has agreed to relay her path result, which is expected back early next week, probably about May 17, 2017. /[id number]/MODL
[2017-05-12 20:24] LABS: CELIAC DISEASE INTERPRETATION See Comments; IMMUNOGLOBULIN A CELIAC 191 mg/dL (61 - 356)
== END 2017-05-12 11:44 | disposition home or self-care (01) | DRG 180 ==
LOC: F2W 14:20
PROVIDERS: ADMIT Student in an Organized Health Care Education/Training Program; ATTEND Student in an Organized Health Care Education/Training Program
PROC: 0BBJ3ZX Excision of Left Lower Lung Lobe, Percutaneous Approach, Diagnostic (ICD-10-PCS; principal; 2017-05-11 13:45)
DX: C78.02 Secondary malignant neoplasm of left lung (principal); I26.99 Other pulmonary embolism without acute cor pulmonale; D50.9 Iron deficiency anemia, unspecified; E87.5 Hyperkalemia; J93.9 Pneumothorax, unspecified; F41.9 Anxiety disorder, unspecified; G89.29 Other chronic pain; I25.10 Atherosclerotic heart disease of native coronary artery without angina pectoris; J44.9 Chronic obstructive pulmonary disease, unspecified; F17.210 Nicotine dependence, cigarettes, uncomplicated; Z95.5 Presence of coronary angioplasty implant and graft; Z85.048 Personal history of other malignant neoplasm of rectum, rectosigmoid junction, and anus; Z79.82 Long term (current) use of aspirin
CPT/HCPCS: 82607-90; 82784-90; 83516-90; 85520-90; 96374; J1170; J1644; J1650; J2060; J2250; J2310; J2405; J2916; Q9967

== ENCOUNTER 2017-07-14 10:00 | Outpatient (CLI) | payer MEDICAID ==
[2017-07-14] MEDS ORDERED: IOPAMIDOL (ISOVUE-300) 100 ML BTL ONE (11:02)
[2017-07-14] MEDS ORDERED: FLUMAZENIL 0.5 MG/5 ML MDV IVP ONE (11:03)
[2017-07-14] MEDS ORDERED: MIDAZOLAM 2 MG/2 ML VIAL ONE (11:03)
[2017-07-14] MEDS ORDERED: NALOXONE HCL 0.4 MG/ML INJ ONE (11:03)
[2017-07-14] MEDS ORDERED: fentaNYL 100 MCG/2 ML INJ ONE (11:04)
[2017-07-14 12:38] VITALS: BP 119/69; RESP 18; O2SAT 94
== END 2017-07-14 12:50 | disposition home or self-care (01) ==
LOC: FIMAGING 10:00
PROVIDERS: ATTEND Internal Medicine Hematology & Oncology
DX: C34.90 Malignant neoplasm of unspecified part of unspecified bronchus or lung (principal); K83.8 Other specified diseases of biliary tract; K57.30 Diverticulosis of large intestine without perforation or abscess without bleeding
CPT/HCPCS: J2250; J2310; J3010; Q9967

== ENCOUNTER 2017-08-22 13:46 | Emergency (ER) | payer MEDICAID ==
[2017-08-22 14:03] VITALS: BP 124/94; PULSE 88; RESP 16; TEMP 98.1; O2SAT 97
== END 2017-08-22 15:13 | disposition left against medical advice (07) ==
DX: Z53.21 Procedure and treatment not carried out due to patient leaving prior to being seen by health care provider (principal)

== ENCOUNTER 2017-09-19 13:57 | Outpatient (CLI) | payer MEDICAID ==
[~2017-09-19 13:57] MED LIST: DEXAMETHASONE 10 MG/ML VIAL ONE; LIDOCAINE 2% JELLY 5 ML TUBE ONE; ONDANSETRON 4 MG/2 ML VIAL ONE
[2017-09-19] MEDS ORDERED: PROPOFOL 200 MG/20 ML VIAL ONE (14:31)
[2017-09-19] MEDS ORDERED: PROPOFOL/EMULSION 500 MG/50 ML BOTTLE IV ONE (14:31)
[2017-09-19 14:50] VITALS: PULSE 63
--- NOTE | 2017-09-19 15:25 | PDANEPAE ---
ANE History of Present Illness mri brain to r/o metastatic disease ANE Past Medical History - Cardiovascular History Hx Hypertension: Yes Hx Arrhythmias: No Hx Chest Pain: Yes Hx Coronary Artery / Peripheral Vascular Disease: Yes Hx CHF / Valvular Disease: No Hx Palpitations: No Cardiovascular History Comment: NSTEMI, stents placed 10/20 - Pulmonary History Hx COPD: Yes Hx Asthma/Reactive Airway Disease: Yes Hx Recent Upper Respiratory Infection: No Hx Oxygen in Use at Home: No Hx Sleep Apnea: No Sleep Apnea Screening Result - Last Documented: Negative Pulmonary History Comment: Hx of PE. lung ca - Neurologic History Hx Cerebrovascular Accident: No Hx Seizures: No Hx Dementia: No Neurologic History Comment: Hx of peripheral neuropathy. Questionalble TIA "many years in the past" - Endocrine History Hx Diabetes: No - Renal History Hx Renal Disorders: No - Liver History Hx Hepatic Disorders: No - Neurological & Psychiatric Hx Hx Neurological and Psychiatric Disorders: No Neurological / Psychiatric History Comment: Hx of anxiety - Cancer History Hx Cancer: Yes Cancer History Comment: lung ca - Congenital Disorder History Hx Congenital Disorders: No - GI History Hx Gastrointestinal Disorders: Yes Gastrointestinal History Comment: GERD - Other Health History Other Health History: Chronic pain. Dentures - Chronic Pain History Chronic Pain: Yes (lower back) - Surgical History Prior Surgeries: Lung biopsy 05/23, colonoscopy, rlex sig w/ resection, cholecystectomy, 2008 SDH w/ plate placement ANE Review of Systems Review of Systems: - Exercise capacity METS (RN): 3 METS ANE Patient History - Allergies Allergies/Adverse Reactions: nitrofurantoin [From Macrobid] Allergy (Severe, Verified 09/16/17 15:22) Swelling/neck,face,throat nitrofurantoin macrocrystalline [From Macrobid] Allergy (Severe, Verified 15:22) Swelling/neck,face,throat - Home Medications Home medications: home medication list seen and reviewed Home Medications: Atorvastatin Calcium [Lipitor 40 mg (*)] 40 mg PO DAILY 02/16/16 [Last Taken ] Ondansetron HCl [Zofran] 4 mg PO Q6 PRN 02/16/16 [Last Taken 09/19/17] Pantoprazole Sodium [Protonix 40mg (*)] 40 mg PO DAILY 02/16/16 [Last Taken ] hydrOXYzine HCL [Vistaril 25MG] 25 mg PO HS 02/16/16 [Last Taken 09/18/17] oxyCODONE IR [Oxycodone Ir (*)] 30 mg PO QID PRN 02/16/16 [Last Taken 09/18/17] Albuterol [Proventil Inhaler HFA (*)] 1 - 2 puffs IH DAILY PRN 05/07/17 [Last Taken 09/19/17] Metoprolol Tartrate [Lopressor 25 mg (*)] 12.5 mg PO BID 05/09/17 [Last Taken ] Clonidine PO 08/22/17 [Last Taken Unknown] Warfarin Sodium 2.5 mg PO 09/16/17 [Last Taken 09/18/17] Warfarin Sodium 5 mg PO FR 09/16/17 [Last Taken 09/16/17] Ms Contin 15 mg PO DAILY 09/19/17 [Last Taken 09/19/17 08:00] - NPO status NPO Status: no food or drink >8 hours - Smoking Hx Smoking Status: Heavy smoker - Family Anes Hx Family Hx Anesthesia Complications: None ANE Labs/Vital Signs - Vital Signs Blood Pressure: 129/99 Heart Rate: 63 Respiratory Rate: 20 O2 Sat (%): 95 Height: 167.64 cm Weight: 73.482 kg ANE Physical Exam - Airway Mallampati Score: Class 1 Mouth exam: normal dental/mouth exam - Pulmonary Pulmonary: no respiratory distress, expiratory wheeze, inspiratory crackles - Cardiovascular Cardiovascular: regular rate and rhythym - ASA Status ASA Status: III ANE Anesthesia Plan Anesthesia Plan: GA w LMA
[2017-09-19] MEDS ORDERED: ROCURONIUM 100 MG/10 ML VIAL ONE (15:31)
[2017-09-19] MEDS ORDERED: GADOBUTROL 10 ML VIAL IVP ONE (16:06)
[2017-09-19] MEDS ORDERED: LR 500 ML IV PRN (16:12)
[2017-09-19] MEDS ORDERED: DEXAMETHASONE 4 MG/ML VIAL IVP PRN (16:12)
[2017-09-19] MEDS ORDERED: MEPERIDINE 25 MG/ML SYR IVP PRN (16:12)
[2017-09-19] MEDS ORDERED: fentaNYL 100 MCG/2 ML INJ IVP PRN (16:12)
[2017-09-19] MEDS ORDERED: NALOXONE HCL 0.4 MG/ML INJ IVP PRN (16:12)
[2017-09-19] MEDS ORDERED: ONDANSETRON 4 MG/2 ML VIAL IVP PRN (16:12)
[2017-09-19] MEDS ORDERED: LABETALOL HCL 50 MG/10 ML SYR IVP PRN (16:12)
[2017-09-19] MEDS ORDERED: PROMETHAZINE HCL 25 MG/ML INJ IVP PRN (16:12)
[2017-09-19] MEDS ORDERED: ALBUTEROL 3 ML DEYVIAL IH PRN (16:12)
[2017-09-19] MEDS ORDERED: METOCLOPRAMIDE 10 MG/2 ML VIAL IVP PRN (16:12)
[2017-09-19 17:12] VITALS: TEMP 98.1
[2017-09-19 17:14] VITALS: BP 114/77; O2SAT 95
--- NOTE | 2017-09-19 17:21 | POSTANESTH ---
Post Anesthetic Evaluation Cardiovascular Status: Normal, Stable Respiratory Status: Normal, Stable Level of Consciousness/Mental Status: Can Participate in Eval Pain Control: Adequate, Prn Tx Ordered Nausea/Vomiting Control: Adequate, Prn Tx Ordered Complications Possibly Related to Anesthesia: None Noted
[2017-09-19 17:51] VITALS: RESP 16
== END 2017-09-19 17:40 | disposition home or self-care (01) ==
LOC: FIMAGING 13:57
PROVIDERS: ATTEND Internal Medicine Hematology & Oncology
DX: C34.90 Malignant neoplasm of unspecified part of unspecified bronchus or lung (principal); D75.1 Secondary polycythemia; I10 Essential (primary) hypertension; Z95.5 Presence of coronary angioplasty implant and graft; Z86.711 Personal history of pulmonary embolism
CPT/HCPCS: A9585; J1100; J2405; J2704

== ENCOUNTER 2017-10-20 02:40 | Inpatient (IN) | payer MEDICAID ==
--- NOTE | 2017-10-20 02:59 | EDPHY ---
H & P Stated Complaint: SOB, blurred vision Time Seen by Provider: 10/20/17 02:49 HPI/ROS: Chief Complaint: Difficulty breathing HPI: 61-year-old woman with a complex medical history woke morning with difficulty breathing. She has a history of coronary artery disease, COPD, PE diagnosed in May and a diagnosis of small cell lung cancer at that time as well. Last INR was checked 2 weeks ago but she does not know with those results were. She does not normally wear oxygen at home. She has been using her inhalers without any relief. Has had a dry nonproductive cough which is her baseline. No fevers or chills. No chest pain or palpitations. No leg pain or swelling. She did not receive any relief with her usual inhalers at home. ROS: 10 point Review of Systems is negative except as noted in the HPI. PMH: COPD, coronary artery disease, right-sided PE, small cell lung carcinoma, history of rectal carcinoid status post resection in the past Social History: Positive smoking, denies alcohol Family History: non-contributory Physical Exam: Gen: Awake, Alert, No Distress HEENT: Nose: no rhinorrhea Eyes: PERRLA, EOMI Mouth: Moist mucosa Neck: Supple, no JVD Chest: nontender, diffusely diminished lung sounds with bilateral expiratory wheezing, no rales or rhonchi Heart: S1, S2 normal, no murmur Abd: Soft, non-tender, no guarding Back: no CVA tenderness, no midline tenderness Ext: no edema, non-tender Skin: no rash Neuro: CN II-XII intact, Sensation grossly intact, Strength 5/5 in bilateral upper and lower extremities - Personal History Tetanus Vaccine Date: 2013 - Medical/Surgical History Hx Asthma: No Hx Chronic Respiratory Disease: Yes Hx Diabetes: No Hx Cardiac Disease: Yes Hx Renal Disease: No Hx Cirrhosis: No Hx Alcoholism: No Hx HIV/AIDS: No Hx Splenectomy or Spleen Trauma: No Other PMH: PMH- chronic pain, chostochondritis, NE 10/20, basal cell carcinoma, htn, hld, gerd. PSHx: brain surgery for aneurysm, gall bladder, right thumb stents cardiac COPD - Social History Smoking Status: Heavy smoker Constitutional: Initial Vital Signs Temperature (C) 36.5 C 10/20/17 02:43 Heart Rate 130 H 10/20/17 02:43 Respiratory Rate 20 10/20/17 02:43 Blood Pressure 130/88 H 10/20/17 02:43 O2 Sat (%) 75 L 10/20/17 02:43 O2 Delivery Mode Nasal Cannula O2 (L/minute) 4 Allergies/Adverse Reactions: nitrofurantoin [From Macrobid] Allergy (Severe, Verified 10/20/17 02:43) Swelling/neck,face,throat nitrofurantoin macrocrystalline [From Macrobid] Allergy (Severe, Verified 02:43) Swelling/neck,face,throat Home Medications: Medication Instructions Recorded Atorvastatin Calcium [Lipitor 40 40 mg PO DAILY 02/16/16 mg (*)] Ondansetron HCl [Zofran] 4 mg PO Q6 PRN 02/16/16 Pantoprazole Sodium [Protonix 40mg 40 mg PO DAILY 02/16/16 (*)] hydrOXYzine HCL [Vistaril 25MG] 25 mg PO HS 02/16/16 oxyCODONE IR [Oxycodone Ir (*)] 30 mg PO QID PRN 02/16/16 Albuterol [Proventil Inhaler HFA 1 - 2 puffs IH DAILY PRN 05/07/17 (*)] Metoprolol Tartrate [Lopressor 25 12.5 mg PO BID 05/09/17 mg (*)] Clonidine PO 08/22/17 Warfarin Sodium 2.5 mg PO 09/16/17 Warfarin Sodium 5 mg PO FR 09/16/17 Ms Contin 15 mg PO DAILY 09/19/17 Medical Decision Making - Diagnostics EKG Interpretation: ECG time 2:55 a.m. sinus tachycardia with a rate of 124, right axis deviation, she has diffuse low voltage no acute ST or T-wave changes. Imaging Results: CT scan shows no PE, there is progression of the left tumor size. There is some of bilateral pneumonitis with a question of neoplastic versus aspiration cause. Study interpreted by Dr. Bird. Imaging: Discussed imaging studies w/ head athletic trainer Radiologist ED Course/Re-evaluation: 61-year-old with a history of COPD, CAD and PE presenting with sudden onset of worsening shortness of breath. She does not usually wear oxygen. Here she is satting 86% on 4 L nasal cannula. Lungs are diffusely diminished. She is also tachycardic however I think this is secondary to your bronchodilators. She is not febrile. ECG shows a sinus tachycardia with no ischemic changes. Of concern is the possibility that she has recurrence of her PE. I will check her coags. Also will check renal function. She will need a CT scan of her chest given her high risk. I have ordered oral prednisone. Will give her a DuoNeb with likely following continuous neb. Cardiac enzymes have also been ordered. She will certainly require admission to the hospital. Patient is somewhat improved after albuterol nebs. She remains tachycardic which is likely secondary to her albuterol. INR is unfortunately 1.[address] scan of her chest results. No acute infiltrates or findings on her chest x-ray at this time. CT scan negative for PE. Symptoms likely consistent with COPD exacerbation. She does have some questionable aspiration pneumonitis. I have ordered clindamycin and blood cultures for this. I have discussed with Dr. Harper, hospitalist. Will admit to [facility] for further care. - Data Points Laboratory Results: Laboratory Results 10/20/17 03:00 10/20/17 03:00 10/20/17 10/20/17 10/20/17 04:36 04:34 03:00 WBC RBC Hgb POC Hgb Hct POC Hct MCV MCH MCHC RDW Plt Count MPV Neut % (Auto) Lymph % (Auto) [place] % (Auto) Eos % (Auto) Baso % (Auto) Nucleat RBC Rel Count Absolute Neuts (auto) Absolute Lymphs (auto) Absolute Monos (auto) Absolute Eos (auto) Absolute Basos (auto) Absolute Nucleated RBC Immature Gran % Immature Gran # Platelet Estimate Oval Macrocytes PT 15.0 SEC SEC (12.0-15.0) INR 1.16 (0.83-1.16) APTT 32.6 SEC SEC (23.0-38.0) POC Sodium Sodium POC Potassium Potassium POC Chloride Chloride Carbon Dioxide Anion Gap POC BUN BUN Creatinine POC Creatinine Estimated GFR Glucose POC Glucose Calcium Troponin I Nasal Influenza A PCR NEGATIVE FOR FLU A (NEGATIVE) Nasal Influenza B PCR NEGATIVE FOR FLU B (NEGATIVE) Influenza A,B Rapid Cancelled 10/20/17 10/20/17 10/20/17 03:00 03:00 02:57 WBC 14.76 10^3/uL H 10^3/uL (3.80-9.50) RBC 4.96 10^6/uL 10^6/uL (4.18-5.33) Hgb 14.5 g/dL g/dL (12.6-16.3) POC Hgb 16.7 gm/dL H gm/dL (12.6-16.3) Hct 44.6 % % (38.0-47.0) POC Hct 49 % H % (38-47) MCV 89.9 fL fL (81.5-99.8) MCH 29.2 pg pg (27.9-34.1) MCHC 32.5 g/dL g/dL (32.4-36.7) RDW 20.7 % H % (11.5-15.2) Plt Count 600 10^3/uL H 10^3/uL (150-400) MPV 8.8 fL fL (8.7-11.7) Neut % (Auto) 62.9 % % (39.3-74.2) Lymph % (Auto) 29.1 % % (15.0-45.0) [place] % (Auto) 5.3 % % (4.5-13.0) Eos % (Auto) 1.7 % % (0.6-7.6) Baso % (Auto) 0.6 % % (0.3-1.7) Nucleat RBC Rel Count 0.0 % % (0.0-0.2) Absolute Neuts (auto) 9.29 10^3/uL H 10^3/uL (1.70-6.50) Absolute Lymphs (auto) 4.29 10^3/uL H 10^3/uL (1.00-3.00) Absolute Monos (auto) 0.78 10^3/uL 10^3/uL (0.30-0.80) Absolute Eos (auto) 0.25 10^3/uL 10^3/uL (0.03-0.40) Absolute Basos (auto) 0.09 10^3/uL 10^3/uL (0.02-0.10) Absolute Nucleated RBC 0.00 10^3/uL 10^3/uL (0-0.01) Immature Gran % 0.4 % % (0.0-1.1) Immature Gran # 0.06 10^3/uL 10^3/uL (0.00-0.10) Platelet Estimate INCREASED H (ADEQ) Oval Macrocytes 1+ H PT INR APTT POC Sodium 141 mEq/L mEq/L (134-144) Sodium 145 mEq/L H mEq/L (134-144) POC Potassium 3.9 mEq/L mEq/L (3.3-5.0) Potassium 4.3 mEq/L mEq/L (3.5-5.2) POC Chloride 104 mEq/L mEq/L (97-110) Chloride 103 mEq/L mEq/L (97-110) Carbon Dioxide 26 mEq/l mEq/l (22-31) Anion Gap 16 mEq/L mEq/L (8-16) POC BUN 17 mg/dL mg/dL (7-23) BUN 17 mg/dL mg/dL (7-23) Creatinine 0.8 mg/dL mg/dL (0.6-1.0) POC Creatinine 0.9 mg/dL mg/dL (0.6-1.0) Estimated GFR > 60 Glucose 125 mg/dL H mg/dL (70-100) POC Glucose 129 mg/dL H mg/dL (70-100) Calcium 9.0 mg/dL mg/dL (8.5-10.4) Troponin I < 0.012 ng/mL ng/mL (0.000-0.034) Nasal Influenza A PCR Nasal Influenza B PCR Influenza A,B Rapid Medications Given: Discontinued Medications Albuterol/Ipratropium (Duoneb) 3 ml IH EDNOW ONE Stop: 10/20/17 03:13 Last Admin: 10/20/17 03:12 Dose: 3 ml Albuterol/Ipratropium (Duoneb) 6 ml IH EDNOW ONE Stop: 10/20/17 03:30 Last Admin: 10/20/17 03:47 Dose: 6 ml Sodium Chloride (Ns) 500 mls @ 1,000 mls/hr IV EDNOW ONE PRN Reason: Protocol Stop: 10/20/17 03:42 Last Admin: 10/20/17 03:14 Dose: 500 mls Nicotine (Nicoderm Cq) 21 mg TD EDNOW ONE Stop: 10/20/17 05:04 Last Admin: 10/20/17 05:18 Dose: 21 mg Ondansetron HCl (Zofran) 4 mg IVP EDNOW ONE Stop: 10/20/17 04:11 Last Admin: 10/20/17 04:10 Dose: 4 mg Prednisone (Prednisone) 60 mg PO EDNOW ONE Stop: 10/20/17 03:10 Last Admin: 10/20/17 03:12 Dose: 60 mg Point of Care Test Results: 10/20/17 02:57 POC Sodium 141 POC Potassium 3.9 POC Chloride 104 POC BUN 17 POC Creatinine 0.9 POC Glucose 129 H Departure - Departure Disposition: [facility] Inpatient Acute Clinical Impression: Chronic obstructive pulmonary disease with acute exacerbation Condition: Fair Referrals: Juventino Bliss DO [Primary Care Provider] - As per Instructions
--- NOTE | 2017-10-20 02:59 | CPEKG ---
Heart Rate: 124 RR Interval: 484 P-R Interval: 152 QRSD Interval: 72 QT Interval: 296 QTC Interval: 425 P [place]: 66 QRS [place]: 91 T Wave [place]: 64 EKG Severity - ABNORMAL ECG - EKG Impression: SINUS TACHYCARDIA EKG Impression: PROBABLE LEFT ATRIAL ABNORMALITY EKG Impression: LOW VOLTAGE WITH RIGHT AXIS DEVIATION EKG Impression: BORDERLINE T ABNORMALITIES, ANT-LAT LEADS Electronically Signed By: Johny Riggins 20-Oct-2017 06:26:20
[2017-10-20] MEDS ORDERED: IPRATROPIUM/ALBUTEROL 3 ML DEYVIAL ONE ×2 (03:00→03:21)
[2017-10-20] MEDS ORDERED: predniSONE 20 MG TAB PO ONE (03:09)
[2017-10-20] MEDS ORDERED: IPRATROPIUM/ALBUTEROL 3 ML DEYVIAL IH ONE ×2 (03:12→03:29)
[2017-10-20] MEDS ORDERED: NS 500 ML IV ONE (03:13)
[2017-10-20 03:17] LABS: % IMMATURE GRANULYOCYTES 0.4 % (0.0-1.1); ABSOLUTE IMMATURE GRANULOCYTES 0.06 10^3/uL (0.00-0.10); ADD DIFF? NO; ADD MORPH? YES; ADD SCAN? NO; ATYPICAL LYMPHOCYTE FLAG 0 (0-99); FRAGMENT RBC FLAG 20 (0-99); HEMATOCRIT 44.6 % (38.0-47.0); HEMOGLOBIN 14.5 g/dL (12.6-16.3); LEFT SHIFT FLG 0 (0-99); LIPEMIA HEMOLYSIS FLAG 80 (0-99); MEAN CELL HEMOGLOBIN 29.2 pg (27.9-34.1); MEAN CELL HEMOGLOBIN CONCENTR. 32.5 g/dL (32.4-36.7); MEAN CELL VOLUME 89.9 fL (81.5-99.8); MEAN PLATELET VOLUME 8.8 fL (8.7-11.7); PLATELET CLUMPS FLAG 20 (0-99); PLATELET COUNT 600 10^3/uL (150-400); RED BLOOD CELL COUNT 4.96 10^6/uL (4.18-5.33)
[2017-10-20 03:20] LABS: RED CELL DISTRIBUTION WIDTH 20.7 % (11.5-15.2)
[2017-10-20 03:23] LABS: ANION GAP 16 mEq/L (8-16); CARBON DIOXIDE 26 mEq/l (22-31); CHLORIDE 103 mEq/L (97-110); CREATININE 0.8 mg/dL (0.6-1.0); GLOMERULAR FILTRATION RATE > 60; GLUCOSE 125 mg/dL (70-100); POTASSIUM 4.3 mEq/L (3.5-5.2); SODIUM 145 mEq/L (134-144)
[2017-10-20 03:25] LABS: INR 1.16 (0.83-1.16)
[2017-10-20 03:26] LABS: APTT 32.6 SEC (23.0-38.0)
[2017-10-20 03:34] LABS: TROPONIN I < 0.012 ng/mL (0.000-0.034)
[2017-10-20] MEDS ORDERED: IOPAMIDOL (ISOVUE 370) 100 ML BTL IV ONE ×2 (03:41→05:01)
[2017-10-20 04:02] LABS: MACROCYTES 1+; PLATELET ESTIMATE INCREASED (ADEQ)
[2017-10-20] MEDS ORDERED: LORazepam 2 MG/ML INJ ONE (04:08)
[2017-10-20] MEDS ORDERED: ONDANSETRON 4 MG/2 ML VIAL IVP ONE (04:10)
[2017-10-20] MEDS ORDERED: ONDANSETRON 4 MG/2 ML VIAL ONE (04:11)
[2017-10-20] MEDS ORDERED: NICOTINE 21 MG/24 HR PATCH TD ONE ×2 (05:03)
[2017-10-20] MEDS ORDERED: CLINDAMYCIN 300 MG in NS 100 ML IV ONE (06:06)
[2017-10-20] MEDS ORDERED: CLINDAMYCIN 600 MG/DEXTROSE 50 ML IV ONE (06:30)
[2017-10-20] MEDS ORDERED: ACETAMINOPHEN 500 MG TAB ONE (06:40)
[2017-10-20] MEDS ORDERED: ACETAMINOPHEN 500 MG TAB PO ONE (06:40)
[2017-10-20] MEDS ORDERED: ONDANSETRON 4 MG/2 ML VIAL IVP PRN (06:45)
[2017-10-20] MEDS ORDERED: ALBUTEROL 3 ML DEYVIAL IH PRN (06:45)
--- NOTE | 2017-10-20 07:09 | PDGENHP ---
History and Physical - Chief Complaint shortness of breath - History of Present Illness Source - patient provides history and appears reliable. case discussed with ED provider and EMR reviewed. HPI - Pleasant 61 yo F with pmhx significant for COPD, CAD s/p stent, left lung small cell lung ca and recent PE both identified 05/2017, on chronic coumadin therapy, chronic pain and tobacco abuse who presents to ED today with complaints of worsening SOB, wheezing starting today. Patient had been treating at home with inhaler but no improvement in SOB. chronic dry cough at baseline. patient does not wear oxygen. no fevers/chills. no sick contacts. patient with chronic GARCIA that normally resolves with rest however yesterday patient was going up the stairs and she could not catch her breath. patient reports some recent subjective flushing/chills for last 2 days. rhinorrhea mild. dry throat but not sore. after not being able to sleep and several hours later she came to ED for further evaluation/treatment. In the ED, patient received continuous neb, PO prednisone and oxygen therapy for o2 sat initially of 86%. Patient currently improvement in respiratory status but with persistent tachycardia and continued decreased air movement. CTA required second attempt with contrast load due to timing mismatch but negative for PE. RUL ground glass infiltrates noted with some enlargement of left lower lobe mass/satellite lesions and lymphadenopathy. History Information - Allergies/Home Medication List Allergies/Adverse Reactions: nitrofurantoin [From Macrobid] Allergy (Severe, Verified 10/20/17 02:43) Swelling/neck,face,throat nitrofurantoin macrocrystalline [From Macrobid] Allergy (Severe, Verified 02:43) Swelling/neck,face,throat Home Medications: Atorvastatin Calcium [Lipitor 40 mg (*)] 40 mg PO DAILY 02/16/16 [Last Taken ] Ondansetron HCl [Zofran] 4 mg PO Q6 PRN 02/16/16 [Last Taken 09/19/17] Pantoprazole Sodium [Protonix 40mg (*)] 40 mg PO DAILY 02/16/16 [Last Taken ] hydrOXYzine HCL [Vistaril 25MG] 25 mg PO HS 02/16/16 [Last Taken 09/18/17] oxyCODONE IR [Oxycodone Ir (*)] 30 mg PO QID PRN 02/16/16 [Last Taken 09/18/17] Albuterol [Proventil Inhaler HFA (*)] 1 - 2 puffs IH DAILY PRN 05/07/17 [Last Taken 09/19/17] Metoprolol Tartrate [Lopressor 25 mg (*)] 12.5 mg PO BID 05/09/17 [Last Taken ] Clonidine PO 08/22/17 [Last Taken Unknown] Warfarin Sodium 2.5 mg PO 09/16/17 [Last Taken 09/18/17] Warfarin Sodium 5 mg PO FR 09/16/17 [Last Taken 09/16/17] Ms Contin 15 mg PO DAILY 09/19/17 [Last Taken 09/19/17 08:00] I have personally reviewed and updated: family history, medical history, social history, surgical history - Past Medical History Additional medical history: renal cyst. L thyroid nodule. CAD s/p stent. COPD. tobacco abuse. small cell lung ca LLL. hx PE 05/2017. neuropathy. chronic pain on chronic opiate therapy. clostrophobia/anxiety since diagnosis of cancer 05/2017 - Surgical History Additional surgical history: brain aneurysm. telma. cath/stents. right thumb. rectal carcinoid tumor resection. IR lung bx - Family History Additional family history: unknown. patient adopted. one daughter who is healthy. - Social History Smoking Status: Heavy smoker Tobacco Use: Cigarettes Alcohol Use: None Drug Use: None Additional social history: smoking since age 13 1ppd. . lives with . COR - FULL. patient initially thought she desired to be a DNR however she wants time to speak with her . Review of Systems Review of Systems: Constitutional: Reports: chills, fever. Denies: diaphoresis, recent illness EENMT: Reports: nose congestion, other (dry mouth. edentulous). Denies: sore throat Cardiac: Reports: no symptoms. Denies: chest pain, edema, lightheadedness, palpitations Respiratory: Reports: cough, shortness of breath, wheezing. Denies: orthopnea Gastrointestinal: Reports: nausea. Denies: vomitting, diarrhea Genitourinary: Reports: no symptoms. Denies: dysuria, hematuria Muscolosketal: Reports: back pain (chronic low back pain). Denies: muscle pain Skin: Reports: no symptoms. Denies: rash Neurological: Reports: anxiety (claustrophobia and anxiety since diagnosis of cancer 05/2017), headache (occasional). Denies: depressed, numbness, tingling, weakness Immunologic/Allergy: Reports: no symptoms Physical Exam Physical Exam: Selected Entries 10/20/17 02:43 Heart Rate 130 H Respiratory 20 Rate O2 Sat (%) 75 L Temperature (C) 36.5 C Blood Pressure 130/88 H Mean Arterial 102 H Pressure (MAP) O2 Delivery Room Air Mode Temperature Axillary Source Temp Pulse Resp BP Pulse Ox 38 C 120 H 16 106/76 91 L 10/20/17 06:36 10/20/17 06:36 10/20/17 06:36 10/20/17 06:36 10/20/17 06:36 Constitutional: no apparent distress, not in pain, chronically ill appearing, other (NAD. patient sitting up on gurney. ) Eyes: PERRL (slightly decreased reactivity to light bilaterally but symmetric. ) , anicteric sclera, EOMI, No scleral injection Ears, Nose, Mouth, Throat: dry mucous membranes, other (no rhinorrhea), No oral ulcer, No poor dentition (edentulous) Cardiovascular: no murmur, rub, or gallop, pulses symmetric bilaterally, tachycardia (regular rhythm), No edema Peripheral Pulses: 1+: dorsalis-pedis (R), dorsalis-pedis (L) Respiratory: no respiratory distress, reduced air movement (diffusely decreased air movement slightly better upper lung wells compared to the lower. ), expiratory wheeze, No no rales or rhonchi (few crackles bibasilar L> R), No clear to auscultation Gastrointestinal: normoactive bowel sounds, soft, non-tender abdomen, no palpable masses, No guarding, No distension Genitourinary: no bladder tenderness, No winters in urethra Skin: warm, normal color, No rash Musculoskeletal: full muscle strength, No joint tenderness, No generalized weakness Neurologic: AAOx3, sensation intact bilaterally, CN II-XII Intact, No facial droop Psychiatric: interacting appropriately, not encephalopathic, thought process linear (patient with increasing somnolence during interview and falls asleep intermittently. awoken easily.), anxious, No depressed Lab Data & Imaging Review 10/20/17 03:00 10/20/17 03:00 WBC 14.76 10^3/uL (3.80-9.50) H 10/20/17 03:00 RBC 4.96 10^6/uL (4.18-5.33) 10/20/17 03:00 Hgb 14.5 g/dL (12.6-16.3) 10/20/17 03:00 POC Hgb 16.7 gm/dL (12.6-16.3) H 10/20/17 02:57 Hct 44.6 % (38.0-47.0) 10/20/17 03:00 POC Hct 49 % (38-47) H 10/20/17 02:57 MCV 89.9 fL (81.5-99.8) 10/20/17 03:00 MCH 29.2 pg (27.9-34.1) 10/20/17 03:00 MCHC 32.5 g/dL (32.4-36.7) 10/20/17 03:00 RDW 20.7 % (11.5-15.2) H 10/20/17 03:00 Plt Count 600 10^3/uL (150-400) H 10/20/17 03:00 MPV 8.8 fL (8.7-11.7) 10/20/17 03:00 Neut % (Auto) 62.9 % (39.3-74.2) 10/20/17 03:00 Lymph % (Auto) 29.1 % (15.0-45.0) 10/20/17 03:00 [place] % (Auto) 5.3 % (4.5-13.0) 10/20/17 03:00 Eos % (Auto) 1.7 % (0.6-7.6) 10/20/17 03:00 Baso % (Auto) 0.6 % (0.3-1.7) 10/20/17 03:00 Nucleat RBC Rel Count 0.0 % (0.0-0.2) 10/20/17 03:00 Absolute Neuts (auto) 9.29 10^3/uL (1.70-6.50) H 10/20/17 03:00 Absolute Lymphs (auto) 4.29 10^3/uL (1.00-3.00) H 10/20/17 03:00 Absolute Monos (auto) 0.78 10^3/uL (0.30-0.80) 10/20/17 03:00 Absolute Eos (auto) 0.25 10^3/uL (0.03-0.40) 10/20/17 03:00 Absolute Basos (auto) 0.09 10^3/uL (0.02-0.10) 10/20/17 03:00 Absolute Nucleated RBC 0.00 10^3/uL (0-0.01) 10/20/17 03:00 Immature Gran % 0.4 % (0.0-1.1) 10/20/17 03:00 Immature Gran # 0.06 10^3/uL (0.00-0.10) 10/20/17 03:00 Platelet Estimate INCREASED (ADEQ) H 10/20/17 03:00 Oval Macrocytes 1+ H 10/20/17 03:00 PT 15.0 SEC (12.0-15.0) 10/20/17 03:00 INR 1.16 (0.83-1.16) 10/20/17 03:00 APTT 32.6 SEC (23.0-38.0) 10/20/17 03:00 POC Sodium 141 mEq/L (134-144) 10/20/17 02:57 Sodium 145 mEq/L (134-144) H 10/20/17 03:00 POC Potassium 3.9 mEq/L (3.3-5.0) 10/20/17 02:57 Potassium 4.3 mEq/L (3.5-5.2) 10/20/17 03:00 POC Chloride 104 mEq/L (97-110) 10/20/17 02:57 Chloride 103 mEq/L (97-110) 10/20/17 03:00 Carbon Dioxide 26 mEq/l (22-31) 10/20/17 03:00 Anion Gap 16 mEq/L (8-16) 10/20/17 03:00 POC BUN 17 mg/dL (7-23) 10/20/17 02:57 BUN 17 mg/dL (7-23) 10/20/17 03:00 Creatinine 0.8 mg/dL (0.6-1.0) 10/20/17 03:00 POC Creatinine 0.9 mg/dL (0.6-1.0) 10/20/17 02:57 Estimated GFR > 60 10/20/17 03:00 Glucose 125 mg/dL (70-100) H 10/20/17 03:00 POC Glucose 129 mg/dL (70-100) H 10/20/17 02:57 Calcium 9.0 mg/dL (8.5-10.4) 10/20/17 03:00 Troponin I < 0.012 ng/mL (0.000-0.034) 10/20/17 03:00 Nasal Influenza A PCR NEGATIVE FOR FLU A (NEGATIVE) 10/20/17 04:34 Nasal Influenza B PCR NEGATIVE FOR FLU B (NEGATIVE) 10/20/17 04:34 Influenza A,B Rapid Cancelled 10/20/17 04:36 Imaging Review: Contrast-Enhanced CT Scan of the Chest (CT Pulmonary Artery Angiography) Clinical History: 61-year-old female with prior tobacco use history diagnosed with small cell lung cancer to the left lower lobe and prior history of small volume right lower lobe pulmonary artery emboli in May, presenting to the ED with respiratory distress. Rule out recurrent PE. Technique: Initially, 90 mL of IV Isovue-370 were administered and a CTPA was performed but the timing bolus was not optimal and the patient returned from the ED for a second bolus of 80 mL of Isovue-[address] imaging was obtained from the base of the neck inferiorly to the upper abdomen with more optimal contrast opacification of the pulmonary arterial tree. Images are reformatted at 1.50 and overlapping 4/3 mm increments and reviewed at a variety of window and level settings. Multiplanar reconstructions are reviewed on the workstation. DFOV: 36 cm. Dose reduction protocols were used. Comparison Studies: CT imaging of the chest dated July 14, 2017 and May 09, 2017. Findings: CT Pulmonary Artery Angiography: The main pulmonary artery, the main right and main left pulmonary arteries are contrast opacified, as are the first and second pulmonary artery segments, with no filling defect to suggest residual or recurrent pulmonary artery thromboemboli. The ascending thoracic aorta is mildly ectatic, measuring 3.5 x 3.7 cm, with no evidence of zulma aneurysm, dissection, or penetrating ulceration. The visualized upper abdominal aorta is normal in size. There is some atherosclerotic calcification of the aortic arch. There is a normal anatomic arrangement of the great vessels off the aortic arch. The heart size is at upper normal limits. There is no pericardial effusion. There is some atherosclerotic coronary artery calcification most pronounced at the level of the left anterior descending coronary artery. Contrast-Enhanced CT Scan of the Chest: There is an 8 x 8 mm left thyroid lobe hypodense nodule which is unchanged. The primary pleuroparenchymal tumor in the posterior left lower lobe has increased in size, currently measuring 4.2 x 2.9 cm, and previously measuring 3.0 x 2.5 cm in July. There is some satellite nodularity along the undersurface of this primary tumor. There is some intraluminal fluid and air within portions of the esophagus, as well as fluid-distended stomach, raising the possibility of aspiration and indeed there are areas of new ground-glass attenuation infiltrate, most pronounced in the apical segment of the right upper lobe, although also involving the anterior portions of the right and left upper lobes, as well as the inferior anterior right upper lobe. There is a new 1.2 x 1.4 cm "fuzzy" ground-glass nodule with a tiny central dot of air seen on series 6, image 104. There are other areas of mild ground-glass attenuation in the right and left lower lobes, for example on series 6, image 140. There is some stable pleuroparenchymal scarring in the inferomedial right middle lobe. There is no pleural effusion. There is a 1.4 x 2.0 cm subcarinal lymph node previously measuring 1.0 x 1.4 cm on July 14, 2017. There is also a left infrahilar lymph node on series 5, image 118, currently measuring 1.7 x 1.8 cm, previously measuring 1.2 x 1.4 cm. The osseous structures are stable with some degenerative features of the spine. There is a stable 2.0 x 2.0 cm upper pole right renal cortical cyst with a Hounsfield unit measurement of 3. The adrenal glands are normal. There is a stable accessory splenule in the left upper quadrant of the abdomen. Preliminary results were conveyed to Dr. Bahman Riggins at 5:50 a.m. on October. Impression: 1. There is no CT evidence of pulmonary artery thromboemboli. 2. Interval increase in left lower lobe primary tumor with some associated inferior satellite nodularity still present and interval increase in subcarinal and left infrahilar metastatic lymphadenopathy. 3. Coronary artery atherosclerotic calcification most pronounced at the level of the LAD. 4. Fluid and air distending portions of the esophagus with fluid-distended stomach and new bilateral ground-glass nodules or infiltrates, most pronounced in the right upper lobe most concerning for aspiration pneumonia, although inflammatory versus infectious versus neoplastic etiologies cannot be excluded. There is a new irregularly marginated nodule in the superior segment of the right lower lobe which could be infectious or potentially neoplastic. 5. Stable subcentimeter left thyroid lobe nodule. 6. Stable 2 cm upper pole right renal cortical cyst. CXR image reviewed myself. report pending. LLL mass. cardiomegaly. vasculature plump. Visualized and Interpreted EKG results: Yes EKG additional interpertation: sinus tach 120s. no acute ST changes. t wave flattening anterior leads. QTc 425. Assessment & Plan Assessment: 1. Chronic obstructive pulmonary disease with acute exacerbation (Acute) - nebs , steroids, clindamycin for possible aspiration coverage. . incentive spirometry. tobacco cessation. 2. acute hypoxic respiratory failure - oxygen supplementation. copd tx as above. titrate o2 down as tolerated 3. sinus tach - 2/2 respiratory status. monitor on telemetry for now until HR resolves. 4. RUL ground glass infiltrate - possible aspiration pneumonitis vs pneumonia vs neoplastic. coverage with clindamycin for now. 5. small cell lung ca - patient awaiting oncology follow up o/p with Dr. Glez 6. SIRS - leukocytosis and tachycardia. qsofa score 0 however. clindamycin for copd exac and possible aspiration pneumonitis 7. thrombocytosis - likely reactive in setting of acute respiratory failure 8. CAD - statin, metoprolol. not currently on ACEI or ASA. 9. hx PE - subtherapeutic INR. rx consult for coumadin dosing. 10. anxiety/clostophobia - ativan prn. 11. tobacco abuse - cessation encouraged. nicoderm patch prn. 12. chronic pain with chronic opiate therapy - continue oxy prn. currently stable 13. neuropathy - will need to clarify patient med rec. home list notes gabapentin and lyrica. sx currently controlled. FEN - IVF. patient appears dry. electrolyte replacement prn. cardiac diet as tolerated. PPX - SCDs. coumadin no bridge with lovenox required at this time. CTA negative for current PE. COR - FULL at this time. patient initially thought she may want to be a DNR but desires to speak with her first. will request advanced directive/ MDPOA packet be provided to patient. DIspo - Patient with improvement in respiratory status but continues to have decreased air movement. continue tx plan as above. possibly could d/c home tomorrow. patient initially was concerned about staying but amenable to treatment overnight.
[2017-10-20] MEDS ORDERED: PANTOPRAZOLE SODIUM 40 MG TAB PO SCH (09:00)
[2017-10-20] MEDS ORDERED: ALBUTEROL 60 PUFFS/8 GM MDI IH PRN (09:24)
[2017-10-20] MEDS: oxyCODONE IR 5 MG TAB PO PRN (09:25)
[2017-10-20] MEDS ORDERED: ALBUTEROL 200 PUFFS/18 GM MDI IH PRN (09:52)
[2017-10-20] MEDS: morphINE SR 15 MG TAB PO SCH ×2 (10:06→20:54)
[2017-10-20] MEDS: PANTOPRAZOLE SODIUM 40 MG TAB PO SCH (10:07)
[2017-10-20] MEDS: PREGABALIN 75 MG CAP PO SCH ×3 (10:09→21:57)
[2017-10-20] MEDS: METOPROLOL TARTRATE 25 MG TAB PO SCH (10:09)
[2017-10-20] MEDS: IPRATROPIUM/ALBUTEROL 3 ML DEYVIAL IH SCH ×3 (10:18→20:42)
[2017-10-20] MEDS: CLINDAMYCIN 150 MG CAP PO SCH ×2 (12:50→20:54)
[2017-10-20] MEDS: ACETAMINOPHEN 325 MG TAB PO PRN (14:09)
[2017-10-20] MEDS ORDERED: WARFARIN SODIUM 2.5 MG TAB PO ONE (16:00)
[2017-10-20] MEDS ORDERED: IPRATROPIUM/ALBUTEROL 4GM MDI IH SCH (16:00)
[2017-10-20] MEDS: predniSONE 20 MG TAB PO SCH ×2 (17:40→17:41)
[2017-10-20] MEDS: hydrOXYzine HCL 25 MG TAB PO SCH (20:54)
[2017-10-20] MEDS: NICOTINE 21 MG/24 HR PATCH TD SCH (20:54)
[2017-10-21] MEDS: IPRATROPIUM/ALBUTEROL 3 ML DEYVIAL IH SCH ×4 (05:01→22:37)
[2017-10-21] MEDS: CLINDAMYCIN 150 MG CAP PO SCH ×2 (05:22→11:14)
[2017-10-21] MEDS: morphINE SR 15 MG TAB PO SCH ×2 (05:22→20:21)
[2017-10-21] MEDS: oxyCODONE IR 5 MG TAB PO PRN ×2 (05:22→11:14)
[2017-10-21 05:27] LABS: % IMMATURE GRANULYOCYTES 0.3 % (0.0-1.1); ABSOLUTE IMMATURE GRANULOCYTES 0.05 10^3/uL (0.00-0.10); ADD DIFF? NO; ADD MORPH? NO; ADD SCAN? NO; ATYPICAL LYMPHOCYTE FLAG 0 (0-99); FRAGMENT RBC FLAG 20 (0-99); HEMATOCRIT 37.7 % (38.0-47.0); HEMOGLOBIN 12.4 g/dL (12.6-16.3); LEFT SHIFT FLG 0 (0-99); LIPEMIA HEMOLYSIS FLAG 80 (0-99); MEAN CELL HEMOGLOBIN CONCENTR. 32.9 g/dL (32.4-36.7); MEAN CELL VOLUME 88.1 fL (81.5-99.8); MEAN PLATELET VOLUME 9.3 fL (8.7-11.7); PLATELET CLUMPS FLAG 0 (0-99); PLATELET COUNT 480 10^3/uL (150-400); RED BLOOD CELL COUNT 4.28 10^6/uL (4.18-5.33); RED CELL DISTRIBUTION WIDTH 19.9 % (11.5-15.2)
[2017-10-21 05:41] LABS: ANION GAP 11 mEq/L (8-16); CALCIUM 9.2 mg/dL (8.5-10.4); CARBON DIOXIDE 24 mEq/l (22-31); CHLORIDE 107 mEq/L (97-110); CREATININE 0.6 mg/dL (0.6-1.0); GLOMERULAR FILTRATION RATE > 60; GLUCOSE 118 mg/dL (70-100); SODIUM 142 mEq/L (134-144)
[2017-10-21 05:44] LABS: INR 1.51 (0.83-1.16); PROTIME(PATIENT) 18.4 SEC (12.0-15.0)
[2017-10-21 05:45] LABS: APTT 34.5 SEC (23.0-38.0)
[2017-10-21] MEDS: PREGABALIN 75 MG CAP PO SCH ×3 (08:26→20:21)
[2017-10-21] MEDS: PANTOPRAZOLE SODIUM 40 MG TAB PO SCH (08:26)
[2017-10-21] MEDS: predniSONE 20 MG TAB PO SCH (08:26)
[2017-10-21] MEDS: ATORVASTATIN CALCIUM 40 MG TAB PO SCH (08:26)
[2017-10-21] MEDS: METOPROLOL TARTRATE 25 MG TAB PO SCH (08:27)
--- NOTE | 2017-10-21 11:38 | HOSPPROG ---
Hospitalist Progress Note Assessment/Plan: COPD exacerbation - cont nebs, steroids, change clinda to augmentin for possible aspiration coverage (prefer augmentin, bactericidal) Tobacco abuse - encourage cessation AHRF secondary to COPD - oxygen supplementation. copd tx as above. wean O2 as able -may need home O2 RUL ground glass infiltrate - possible aspiration pneumonitis vs pneumonia vs neoplastic. -augmentin as above small cell lung ca - followed by Dr. Glez thrombocytosis - likely reactive in setting of acute respiratory failure, improving CAD - stable, cont statin, metoprolol. not currently on ACEI or ASA. hx PE - subtherapeutic INR. Pharmacy dosing coumadin. anxiety/clostophobia - ativan prn. tobacco abuse - cessation encouraged. nicoderm patch prn. chronic pain with chronic opiate therapy - continue oxy prn. currently stable neuropathy - cont lyrica FEN - IVF. patient appears dry. electrolyte replacement prn. cardiac diet as tolerated. PPX - SCDs, up-titrating coumadin Full code DIspo - Patient with improvement in respiratory status but continues to have decreased air movement. continue tx plan as above. possibly could d/c home tomorrow. patient initially was concerned about staying but amenable to treatment overnight. Subjective: Pt feels better, though still coughing a bit and requiring 2 LPM O2. No fevers. No CP or SOB. Objective: Vital Signs Temp Pulse Resp BP Pulse Ox 36.6 C 74 24 H 96/62 L 91 L 10/21/17 07:27 10/21/17 11:05 10/21/17 11:05 10/21/17 08:27 10/21/17 11:05 Laboratory Results 10/21/17 04:18 10/21/17 04:18 10/20/17 10/21/17 10/22/17 05:59 05:59 05:59 Intake Total 400 Balance 400 PT 18.4 SEC (12.0-15.0) H 10/21/17 04:18 INR 1.51 (0.83-1.16) H 10/21/17 04:18 - Physical Exam Constitutional: no apparent distress Eyes: PERRL Ears, Nose, Mouth, Throat: moist mucous membranes Cardiovascular: regular rate and rhythym Respiratory: no respiratory distress, reduced air movement, expiratory wheeze Skin: warm Musculoskeletal: full muscle strength Neurologic: AAOx3 Psychiatric: interacting appropriately ICD10 Worksheet Patient Problems: Problems Problem Status Onset Chronic obstructive pulmonary disease with acute exacerbation Acute Coronary artery disease Acute NSTEMI (non-ST elevated myocardial infarction) Acute Pulmonary embolism Acute
[2017-10-21] MEDS: AMOXICILLIN/CLAVULANATE POT 875/125 MG TAB PO SCH ×2 (12:24→20:20)
[2017-10-21] MEDS: guaiFENesin 600 MG TAB.ER PO SCH ×2 (12:25→20:20)
--- NOTE | 2017-10-21 13:00 | ASMTCMCOM ---
CM Note CM Note Notes: Chart reviewed. Patient lives independently. Here with COPD exacerbation, small cell lung cancer. Daily smoker. No therapies noted in chart. Plan likely dc to home independently when medically stable for discharge. CM available should needs arise. Date Signed: 10/21/2017 01:00 PM Electronically Signed By:Toshia Burger RN
--- NOTE | 2017-10-21 13:58 | PDMN ---
Medical Necessity Medical necessity: change to IP; los>2mn for COPD exacerbation w/ acute hypoxic resp failure, and RUL ground glass infiltrate r/t asp pneumonitis vs pna vs neoplastic; requires supplemental O2, abx change, nebs, and steroids; comorbid lung CA, CAD, hx PE; per order and progress note 10/21/17
[2017-10-21] MEDS ORDERED: WARFARIN SODIUM 2.5 MG TAB PO ONE (16:00)
[2017-10-21] MEDS ORDERED: MAG HYDROX/AL HYDROX/SIMETH 30 ML UDCUP PO PRN (16:39)
[2017-10-21] MEDS: ACETAMINOPHEN 325 MG TAB PO PRN (18:33)
[2017-10-21] MEDS: NICOTINE 21 MG/24 HR PATCH TD SCH (19:33)
[2017-10-21] MEDS: hydrOXYzine HCL 25 MG TAB PO SCH (20:21)
[2017-10-22 05:16] LABS: % IMMATURE GRANULYOCYTES 0.5 % (0.0-1.1); ABSOLUTE IMMATURE GRANULOCYTES 0.07 10^3/uL (0.00-0.10); ADD DIFF? NO; ADD MORPH? YES; ADD SCAN? NO; ATYPICAL LYMPHOCYTE FLAG 0 (0-99); FRAGMENT RBC FLAG 20 (0-99); HEMOGLOBIN 12.5 g/dL (12.6-16.3); LEFT SHIFT FLG 0 (0-99); LIPEMIA HEMOLYSIS FLAG 80 (0-99); MEAN CELL HEMOGLOBIN 29.3 pg (27.9-34.1); MEAN CELL HEMOGLOBIN CONCENTR. 32.9 g/dL (32.4-36.7); MEAN CELL VOLUME 89.2 fL (81.5-99.8); MEAN PLATELET VOLUME 9.3 fL (8.7-11.7); PLATELET CLUMPS FLAG 0 (0-99); PLATELET COUNT 478 10^3/uL (150-400); RED BLOOD CELL COUNT 4.26 10^6/uL (4.18-5.33)
[2017-10-22 05:20] LABS: RED CELL DISTRIBUTION WIDTH 20.1 % (11.5-15.2)
[2017-10-22 05:26] LABS: INR 1.51 (0.83-1.16); PROTIME(PATIENT) 18.4 SEC (12.0-15.0)
[2017-10-22 05:45] LABS: MACROCYTES 2+; MICROCYTES 2+; PLATELET ESTIMATE ADEQUATE (ADEQ)
[2017-10-22] MEDS: IPRATROPIUM/ALBUTEROL 3 ML DEYVIAL IH SCH ×2 (05:50→12:10)
[2017-10-22] MEDS: ACETAMINOPHEN 325 MG TAB PO PRN (06:41)
[2017-10-22 07:54] VITALS: BP 103/70; TEMP 97.8
[2017-10-22] MEDS: ATORVASTATIN CALCIUM 40 MG TAB PO SCH (08:08)
[2017-10-22] MEDS: guaiFENesin 600 MG TAB.ER PO SCH (08:08)
[2017-10-22] MEDS: PREGABALIN 75 MG CAP PO SCH (08:08)
[2017-10-22] MEDS: PANTOPRAZOLE SODIUM 40 MG TAB PO SCH (08:08)
[2017-10-22] MEDS: AMOXICILLIN/CLAVULANATE POT 875/125 MG TAB PO SCH (08:08)
[2017-10-22] MEDS: oxyCODONE IR 5 MG TAB PO PRN (08:11)
[2017-10-22] MEDS: METOPROLOL TARTRATE 25 MG TAB PO SCH (08:11)
[2017-10-22] MEDS ORDERED: predniSONE 20 MG TAB PO SCH (09:00)
--- NOTE | 2017-10-22 10:40 | PDHOMEO2F ---
Home Oxygen Face to Face Home Orders: I certify that a physician or a nurse practitioner or physician's health care legal assistant has had a [id number] encounter with this patient on the date of this order due to the diagnosis listed, which relates to the primary reason the patient requires home oxygen. Alternative treatments have been tried, or considered, and deemed ineffective. It is anticipated that supplemental oxygen will result in improvement with treatment. Home oxygen qualifying diagnosis: lung cancer, PNA SpO2 on room air (%): 82 Frequency of home oxygen needed: continuous Home oxygen liters per minute: 2 Home oxygen delivery device: nasal cannula Concentrator: Yes E-tanks for mobility and back up: Yes If ordering portable O2, is the patient mobile in the home?: Yes I certify that, based on these findings, the home oxygen is medically necessary for this patient for the following length of time. Length of time home oxygen needed: 99 years
[2017-10-22] MEDS: morphINE SR 15 MG TAB PO SCH (10:46)
--- NOTE | 2017-10-22 11:29 | ASMTCMCOM ---
CM Note CM Note Notes: Chart reviewed . patient medically stable for discharge. Will go home with oxygen. No other needs identified at this time. CM available should needs arise, Date Signed: 10/22/2017 11:29 AM Electronically Signed By:Toshia Burger RN
[2017-10-22 12:29] VITALS: PULSE 82; RESP 18; O2SAT 86
--- NOTE | 2017-10-22 14:46 | ASDISCHSUM ---
Discharge Information Plan Status:Home with DME or Oxygen Medically Cleared to Leave:10/21/2017 Discharge Date:10/22/2017 01:07 PM CM D/C Disposition:Home, Routine, Self-Care ADT D/C Disposition:Home, Routine, Self-Care Projected Discharge Date:10/22/2017 01:07 PM Transportation at D/C:Family Discharge Delay Reason: Follow-Up Date:10/22/2017 01:07 PM Discharge Slot: Final Diagnosis: Placement Information Patient Contact Information Contact Name:SWATI Relationship: Address:[address] Work Phone: City:[place] Alternate Phone: [facility]/Zip Code:[place] [address] Email: Financial Information Financial Class: Primary Plan Desc:[facility] Primary Plan Number:[id number] Secondary Plan Desc: Secondary Plan Number: Assessment Information [facility] CM Progress Note CM Note CM Note Notes: Chart reviewed. Patient lives independently. Here with COPD exacerbation, small cell lung cancer. Daily smoker. No therapies noted in chart. Plan likely dc to home independently when medically stable for discharge. CM available should needs arise. Date Signed: 10/21/2017 01:00 PM Electronically Signed By:Toshia Burger RN [facility] CM Progress Note CM Note CM Note Notes: Chart reviewed . patient medically stable for discharge. Will go home with oxygen. No other needs identified at this time. CM available should needs arise, Date Signed: 10/22/2017 11:29 AM Electronically Signed By:Toshia Burger RN Intervention Information
--- NOTE | 2017-10-23 06:04 | GDS ---
[f rep st] DISCHARGE SUMMARY DISCHARGE DIAGNOSES: 1. Acute hypoxemic respiratory failure in the setting of chronic obstructive pulmonary disease exace rbation, possible aspiration pneumonia, and small cell lung cancer. 2. Acute exacerbation of chronic obstructive pulmonary disease. 3. Right upper lobe opacity, possibly representing aspiration pneumonia. 4. Small cell lung cancer. 5. Tobacco abuse. 6. Coronary artery disease. 7. History of pulmonary embolism. 8. Chronic anticoagulation with a subtherapeutic INR. 9. Chronic pain. 10. Chronic continuous opioid therapy. 11. Neuropathy. CONSULTANTS: None. HISTORY: For details please see the history and physical dated October 20, 2017. In brief, the pat wyatt is a 61-year-old female with a history of small cell lung cancer followed by Dr. Glez, along with COPD, coronary disease, and chronic anticoagulation who presents to the emergency department wit h worsening shortness of breath and wheezing. She was admitted to the hospital for further managemen t of COPD exacerbation with some concern for aspiration pneumonia. HOSPITAL COURSE: Patient admitted to the cardiac telemetry unit. A CT pulmonary angiogram was negat niru for PE. A right upper lobe opacity was concerning for aspiration pneumonia and she was initially treated with clindamycin and transitioned to Unasyn. At discharge, she will complete a course of or al Augmentin. She received nebulizers, steroids, and supplemental oxygen for her COPD exacerbation. She continues to require 1-2 L of oxygen at discharge and home oxygen is ordered. A respiratory [facility] [place] was negative for influenza or other viral etiologies. Her blood cultures are negative. Her INR is up to 1.5 from 1.12 at discharge and she is advised she needs close INR followup with cont inued up titration of her Coumadin as indicated. The patient strongly desires to discharge home. DISPOSITION: Patient is discharged home in stable condition. FOLLOWUP: 1. Dr. Juventino Bliss primary care. 2. Dr. Malcolm Glez, Medical Oncology. DISCHARGE MEDICATIONS: Please see [facility] for completed updated outpatient medication list. Medication on discharge includes: 1. Augmentin 875 mg p.o. b.i.d., #10, no refills. 2. Prednisone 60 mg p.o. daily, #9, for 3 more days of steroid therapy, then off. 3. She is instructed to take a 5 mg dose of Coumadin today and have her INR checked on Tuesday. Furt her dosing per the anticoagulation clinic. 4. She was also instructed to increase her DuoNeb to 4 times daily. /[id number]/MODL
== END 2017-10-22 13:07 | disposition home or self-care (01) | DRG 190 ==
LOC: F2W 07:35 → OBSVTOIN 10-21 12:33
PROVIDERS: ADMIT Family Medicine; ATTEND Family Medicine
DX: J44.1 Chronic obstructive pulmonary disease with (acute) exacerbation (principal); J96.01 Acute respiratory failure with hypoxia; J69.0 Pneumonitis due to inhalation of food and vomit; C34.90 Malignant neoplasm of unspecified part of unspecified bronchus or lung; Z72.0 Tobacco use; I25.10 Atherosclerotic heart disease of native coronary artery without angina pectoris; Z86.711 Personal history of pulmonary embolism; Z79.01 Long term (current) use of anticoagulants; G89.29 Other chronic pain; G62.9 Polyneuropathy, unspecified; I25.2 Old myocardial infarction
CPT/HCPCS: 82947-QW; 92610-GN; 96374; G0378; J2060; J2405; Q9967

== ENCOUNTER 2017-10-25 10:35 | Inpatient (IN) | payer MEDICAID ==
--- NOTE | 2017-10-25 10:52 | EDPHY ---
HPI/HX/ROS/PE/MDM Narrative: CHIEF COMPLAINT: Shortness of breath HPI: The patient is an anticoagulated 81 y/o female with a history of COPD, a PE, CAD , and small cell lung cancer complaining of shortness of breath. She was recently admitted to the hospital for acute hypoxemic respiratory failure and acute exacerbation of COPD on 10/21/17, 4 days ago. She was discharged on with Augmentin, Prednisone, and instructed to increase her DuoNeb to 4 times a day. She has been taking these prescriptions. Yesterday she developed shortness of breath. Denies chest pain, abdominal pain, numbness, paresthesias or other pertinent symptoms. Patient is a difficult historian and only answers in short, uninterested sentences. Prior medical records reviewed including discharge summary from Dr. Bass on 10/22/17. REVIEW OF SYSTEMS: Aside from elements discussed in the HPI, a comprehensive 10-point review of systems was reviewed and is negative. PMH: COPD, small cell lung cancer, CAD, pulmonary embolism, chronic pain, neuropathy SOCIAL HISTORY: Lives in [place], at bedside PHYSICAL EXAM: General: Patient is alert, in no acute distress. ENT: Eyes are normal to inspection. ENT inspection normal. Neck: Normal inspection. Full range of motion. Respiratory: Tachypneic, scattered rhonchi and wheeze, lung sounds diminished on left compared to right Cardiovascular: Regular rate and rhythm. Strong peripheral pulses. Normal cap refill. Abdomen: The abdomen is nontender to palpation. There are no peritoneal signs. There are normal bowel sounds. Back: Normal to inspection. No tenderness to palpation. Skin: Normal color. No rash. Warm and dry. Extremities: Normal appearance. Full range of motion. Neuro: Oriented x3. Normal motor function. Normal sensory function. Portions of this note were transcribed by an ED scribe. I personally performed the history, physical exam, and medical decision making; and confirm the accuracy of the information in the transcribed note. ED Course: 1107: EKG was ordered and interpreted by myself. Please see [facility] system for official reading. 1145: Patient's chest x-ray reveals right-sided pneumonia. She will need to be admitted. 1202: 1gm IV Rocephin and 1gm PO Tylenol administered. 1206: Consulted with hospitalist service, Dr. Poole accepts admission of this patient. 1230: Patient has influenza A - Data Points Imaging Results: Imaging Impressions Chest X-Ray 10/25/17 11:04 Impression: 1. Increasing interstitial pneumonia suspected right lower lobe and right upper lobe. Imaging: I viewed and interpreted images myself Laboratory Results: Laboratory Results 10/25/17 11:04 10/25/17 11:04 10/25/17 10/25/17 10/25/17 11:12 11:04 11:04 WBC 9.45 10^3/uL 10^3/uL (3.80-9.50) RBC 4.65 10^6/uL 10^6/uL (4.18-5.33) Hgb 13.5 g/dL g/dL (12.6-16.3) Hct 41.0 % % (38.0-47.0) MCV 88.2 fL fL (81.5-99.8) MCH 29.0 pg pg (27.9-34.1) MCHC 32.9 g/dL g/dL (32.4-36.7) RDW 20.1 % H % (11.5-15.2) Plt Count 434 10^3/uL H 10^3/uL (150-400) MPV 9.1 fL fL (8.7-11.7) Neut % (Auto) Not Reported Lymph % (Auto) Not Reported [place] % (Auto) Not Reported Eos % (Auto) Not Reported Baso % (Auto) Not Reported Nucleat RBC Rel Count 0.5 % H % (0.0-0.2) Absolute Neuts (auto) Not Reported Absolute Lymphs (auto) Not Reported Absolute Monos (auto) Not Reported Absolute Eos (auto) Not Reported Absolute Basos (auto) Not Reported Absolute Nucleated RBC 0.05 10^3/uL H 10^3/uL (0-0.01) Immature Gran % Not Reported Seg Neutrophils % 75 % % Band Neutrophils % 7 % % Lymphocytes % 16 % % Eosinophils % 1 % % Metamyelocytes % 1 % % Immature Gran # Not Reported Absolute Seg Neuts 7.09 10^/uL H 10^/uL (1.70-6.50) Absolute Band Neuts 0.66 10^3/uL 10^3/uL (0.00-0.70) Absolute Lymphocytes 1.51 10^3/uL 10^3/uL (1.00-3.00) Absolute Eosinophils 0.09 10^3/uL 10^3/uL (0.03-0.40) Absolute Metamyelocyte 0.09 10^3/mL H 10^3/mL (0.00-0.00) RBC/WBC/PLT Morphology NORMAL (NORMAL) Platelet Estimate ADEQUATE (ADEQ) VBG Lactic Acid Sodium 145 mEq/L H mEq/L (134-144) Potassium 4.3 mEq/L mEq/L (3.5-5.2) Chloride 105 mEq/L mEq/L (97-110) Carbon Dioxide 30 mEq/l mEq/l (22-31) Anion Gap 10 mEq/L mEq/L (8-16) BUN 16 mg/dL mg/dL (7-23) Creatinine 0.7 mg/dL mg/dL (0.6-1.0) Estimated GFR > 60 Glucose 92 mg/dL mg/dL (70-100) Calcium 8.5 mg/dL mg/dL (8.5-10.4) Nasal Influenza A PCR FLU A DETECTED (NEGATIVE) Nasal Influenza B PCR NEGATIVE FOR FLU B (NEGATIVE) 10/25/17 11:04 WBC RBC Hgb Hct MCV MCH MCHC RDW Plt Count MPV Neut % (Auto) Lymph % (Auto) [place] % (Auto) Eos % (Auto) Baso % (Auto) Nucleat RBC Rel Count Absolute Neuts (auto) Absolute Lymphs (auto) Absolute Monos (auto) Absolute Eos (auto) Absolute Basos (auto) Absolute Nucleated RBC Immature Gran % Seg Neutrophils % Band Neutrophils % Lymphocytes % Eosinophils % Metamyelocytes % Immature Gran # Absolute Seg Neuts Absolute Band Neuts Absolute Lymphocytes Absolute Eosinophils Absolute Metamyelocyte RBC/WBC/PLT Morphology Platelet Estimate VBG Lactic Acid 1.2 mmol/L mmol/L (0.7-2.1) Sodium Potassium Chloride Carbon Dioxide Anion Gap BUN Creatinine Estimated GFR Glucose Calcium Nasal Influenza A PCR Nasal Influenza B PCR Medications Given: Discontinued Medications Acetaminophen (Tylenol) 1,000 mg PO EDNOW ONE Stop: 10/25/17 11:59 Last Admin: 10/25/17 12:02 Dose: 1,000 mg Ceftriaxone Sodium/Dextrose (Rocephin 1 Gm (Premix)) 50 mls @ 100 mls/hr IV EDNOW ONE PRN Reason: Protocol Stop: 10/25/17 12:15 Last Admin: 10/25/17 12:02 Dose: 50 mls General Time Seen by Provider: 10/25/17 10:51 Initial Vital Signs: Initial Vital Signs Temperature (C) 39.1 C H 10/25/17 10:40 Heart Rate 140 H 10/25/17 10:40 Respiratory Rate 22 H 10/25/17 10:40 Blood Pressure 129/93 H 10/25/17 10:40 O2 Sat (%) 82 L 10/25/17 10:40 O2 Delivery Mode Nasal Cannula O2 (L/minute) 4 Allergies/Adverse Reactions: nitrofurantoin [From Macrobid] Allergy (Severe, Verified 10/25/17 10:43) Swelling/neck,face,throat nitrofurantoin macrocrystalline [From Macrobid] Allergy (Severe, Verified 10:43) Swelling/neck,face,throat ciprofloxacin Allergy (Verified 10/25/17 10:43) "BURNING SENSATION IN MY FEET" codeine Allergy (Verified 10/25/17 10:43) Vomiting Home Medications: Medication Instructions Recorded Atorvastatin Calcium [Lipitor 40 40 mg PO DAILY 02/16/16 mg (*)] Ondansetron HCl [Zofran] 4 mg PO Q6 PRN 02/16/16 Pantoprazole Sodium [Protonix 40mg 40 mg PO DAILY 02/16/16 (*)] oxyCODONE IR [Oxycodone Ir (*)] 30 mg PO TID PRN 02/16/16 Albuterol [Proventil Inhaler HFA 1 - 2 puffs IH DAILY PRN 05/07/17 (*)] Metoprolol Tartrate [Lopressor 25 25 mg PO DAILY 05/09/17 mg (*)] Warfarin Sodium [Coumadin 2.5MG 2.5 mg PO SUMOTUWETHSA@16 09/16/17 (*)] morphINE SR [Ms Contin/Oramorph 15 15 mg PO BID 09/19/17 mg (*)] Acetaminophen [Tylenol 325mg (*)] 325 mg PO TID PRN 10/20/17 Herbals/Supplements -Info Only 1 ea PO DAILY 10/20/17 Pregabalin [Lyrica 75mg (*)] 75 mg PO TID 10/20/17 Warfarin Sodium [Coumadin 5MG (*)] 5 mg PO FR@16 10/20/17 hydrOXYzine HCL [hydrOXYzine HCL 25 mg PO HS 10/20/17 (RX)] Amoxicillin/Clavulanate Pot 875 mg PO BID #10 tab 10/22/17 [Augmentin 875 MG TAB (*)] Ipratropium/Albuterol [Combivent 1 inh IH QID #0 10/22/17 Respimat Inhal [place](*)] predniSONE 60 mg PO DAILY #9 tablet 10/22/17 Departure - Departure Disposition: [facility] Inpatient Acute Clinical Impression: Influenza A Pneumonia Qualifiers: Pneumonia type: due to unspecified organism Laterality: right Lung location: lower lobe of lung Qualified Code(s): J18.1 - Lobar pneumonia, unspecified organism Condition: Fair Referrals: Juventino Bliss DO [Primary Care Provider] - As per Instructions Report Scribed for: Sonu Felton Report Scribed by: Phyllis Gloria Date of Report: 10/25/17 Time of Report: 10:52
--- NOTE | 2017-10-25 11:11 | CPEKG ---
Heart Rate: 124 RR Interval: 484 P-R Interval: 132 QRSD Interval: 70 QT Interval: 288 QTC Interval: 414 P [place]: 68 QRS [place]: 105 T Wave [place]: 68 EKG Severity - ABNORMAL ECG - EKG Impression: SINUS TACHYCARDIA EKG Impression: PROBABLE LEFT ATRIAL ABNORMALITY EKG Impression: LOW VOLTAGE IN FRONTAL LEADS EKG Impression: NONSPECIFIC T ABNORMALITIES, LATERAL LEADS Electronically Signed By: Justin Alvarez 25-Oct-2017 19:48:46
[2017-10-25 11:13] LABS: PLATELET COUNT 434 10^3/uL (150-400)
[2017-10-25] MEDS ORDERED: ACETAMINOPHEN 500 MG TAB PO ONE (11:58)
[2017-10-25] MEDS ORDERED: ONDANSETRON 4 MG/2 ML VIAL IVP PRN (12:29)
[2017-10-25] MEDS ORDERED: ALBUTEROL 3 ML DEYVIAL IH PRN (12:29)
[2017-10-25] MEDS ORDERED: NS 1,000 ML IV ONE (12:29)
[2017-10-25] MEDS ORDERED: IPRATROPIUM/ALBUTEROL 3 ML DEYVIAL ONE (13:01)
[2017-10-25] MEDS ORDERED: IPRATROPIUM/ALBUTEROL 3 ML DEYVIAL IH ONE (13:03)
[2017-10-25 13:46] LABS: INR 1.75 (0.83-1.16); PROTIME(PATIENT) 20.5 SEC (12.0-15.0)
--- NOTE | 2017-10-25 13:55 | GHP ---
[f rep st] HISTORY AND PHYSICAL DATE OF ADMISSION: 10/25/2017 CHIEF COMPLAINT: Shortness of breath and confusion. HISTORY OF PRESENT ILLNESS: A 61-year-old female, who was recently admitted to [facility] on 10/21/2017, with COPD exacerbation and shortness of breath. During the hospital stay, muna wilson had CTA imaging of the chest that showed no pulmonary embolism, showed increase in the size of her already known tumor, and bilateral ground-glass infiltrates, most pronounced in the right upper lobe , thought to potentially be aspiration pneumonia. Patient was initiated initially on IV Unasyn and t hen transitioned to outpatient Augmentin. She reports going home on Augmentin and prednisone and act ually feeling better, able to engage in activities around the home, cleaning, etc. Then, 24 hours pr ior to presentation, the patient became more fatigued with progressive shortness of breath. Patient ultimately was found to be confused by her partner/ the morning of presentation and brought to the emergency department for evaluation. She does endorse a new cough with markedly more severe kiko rtness of breath and worsening hypoxia requiring 5 L of oxygen rather than her baseline supplemental 2 L. patient denied any nausea or vomiting but did endorse some anorexia or lack of interest in food , was extremely fatigued needing to lay down in bed and attempt to sleep, and that would not normally be her activity profile. Patient denies any diarrhea. Denies any known sick contacts but is report ing having been to her primary care office recently. PAST MEDICAL HISTORY: 1. Small-cell lung cancer. 2. COPD. 3. Chronic hypoxic respiratory failure secondary to COPD. 4. Coronary artery disease, status post stenting. 5. History of pulmonary embolism diagnosed May 2017 on chronic anticoagulation. 6. Chronic back pain with continuous narcotic dependency. 7. Anxiety/claustrophobia. SOCIAL HISTORY: Patient smokes a pack and half of cigarettes a day. Denies alcohol. She lives with her . FAMILY HISTORY: She is adopted. ADVANCED DIRECTIVES: Patient is full cor, full tube. Her will be her medical decision maker . REVIEW OF SYSTEMS: A 10-point review of systems is negative with the exception of that reported in t he HPI. PHYSICAL EXAMINATION: VITAL SIGNS: Blood pressure 129/93, heart rate 140, respiratory rate 22, satu rating 82% on 2 L of oxygen, febrile at 39.1. GENERAL: This is a pleasant middle-aged female in no acute distress. HEENT: Notable for dry mucous membranes. Eye exam is negative for any icterus. CA RDIAC: Patient is tachycardic but regular. PULMONARY: Rhonchi are appreciated in the right lung fie ld. No wheezing is appreciated. GASTROINTESTINAL: Positive bowel sounds. ABDOMEN: Soft. MUSCULO SKELETAL: Negative for any lower extremity edema. SKIN: Negative for any rashes. NEUROLOGIC: She is lethargic but oriented. PSYCHIATRIC: She is pleasant and cooperative on interview and examinati on. DATA: White count 9.4, down from 16 during her hospitalization. Hematocrit 41.0, platelet count of 434. Sodium 145, creatinine 0.7. INR last check 1.88. Influenza A PCR is positive. Chest x-ray which I personally reviewed and interpreted, shows right-sided infiltrate, both right mid dle and lower lobes, appear worse than previous imaging. ASSESSMENT AND PLAN: This is a 61-year-old female presenting with shortness of breath. 1. Acute influenza A. patient had a period of time where her symptoms had improved from her hospita lization. A respiratory PCR was obtained during her hospital stay and was negative, so I believe thi s is acute presentation. Will initiate Tamiflu now and follow patient's clinical progress with suppo rtive care and Tamiflu. 2. Sepsis. Patient is presenting tachycardic and febrile. Presumed source is pulmonary. Will elizabeth t with IV fluids, empiric antibiotics until cultures are negative, and Tamiflu as above. Have ordere d a procalcitonin to help us with the decision to discontinue antibiotics. Have additionally ordered blood cultures and sputum cultures. 3. Acute hypoxic respiratory failure secondary to influenza pneumonia. Cannot, at this time, rule o ut possible health-care associated pathogens as well. Therefore, empirically starting vancomycin and cefepime. Will wait for cultures tomorrow as well as a procalcitonin to assist in discontinuation o f these antibiotics. Patient currently requiring 5 L of oxygen to maintain her saturations in the hi gh 80s to low 90s. 4. Coronary artery disease. Patient is not complaining of chest pain. Will continue her home medic ations without alteration. 5. Chronic obstructive pulmonary disease. Will continue patient's prednisone dosing currently and s upport with inhaled beta agonists. 6. Chronic low back pain with continuous narcotic dependency. Will continue her home dosing of pain medications while in the hospital. 7. Pulmonary embolism. Patient is on full-dose anticoagulation which we will continue. Will check an INR at presentation. 8. Prophylaxis. Patient is on full-dose anticoagulation. DIET: Regular. DISPOSITION: I expect greater than 2 midnights. The patient is presenting with acute influenza A wi th multiple underlying medical comorbidities. I discussed the case with the emergency room physician . Patient will be triaged to the medical-surgical floor for care. /[id number]/MODL
[2017-10-25] MEDS: NICOTINE 21 MG/24 HR PATCH TD SCH (14:37)
--- NOTE | 2017-10-25 14:54 | PDMN ---
Medical Necessity Medical necessity: est los>2mn for acute influenza A, sepsis and acute hypoxic resp failure r/t influenza pna; admit for Tamiflu, supportive care, IVF, IV abx , follow cx's; multiple comorbidities, including lung CA, COPD,CAD, hx PE on AC ; per order and H&P 10/25/17
[2017-10-25] MEDS: CEFEPIME HCL 2 GM in D5W 100 ML IV SCH ×2 (15:36→22:48)
[2017-10-25] MEDS: IPRATROPIUM/ALBUTEROL 3 ML DEYVIAL IH SCH ×2 (16:23→21:33)
[2017-10-25] MEDS: VANCOMYCIN HCL/NORMAL SALINE 250 ML IV SCH (17:10)
[2017-10-25] MEDS: ACETAMINOPHEN 325 MG TAB PO PRN (18:27)
[2017-10-25] MEDS: OSELTAMIVIR 6 MG/ML UDSYR PO SCH (18:27)
[2017-10-25] MEDS: PREGABALIN 75 MG CAP PO SCH (22:49)
[2017-10-25] MEDS: WARFARIN SODIUM 2.5 MG TAB PO SCH (22:49)
[2017-10-25] MEDS: morphINE SR 15 MG TAB PO SCH (22:49)
[2017-10-25] MEDS: hydrOXYzine HCL 25 MG TAB PO SCH (22:49)
[2017-10-26] MEDS: ACETAMINOPHEN 325 MG TAB PO PRN ×3 (00:07→11:34)
[2017-10-26] MEDS: VANCOMYCIN HCL/NORMAL SALINE 250 ML IV SCH ×2 (03:25→15:10)
[2017-10-26] MEDS: ONDANSETRON DISINTEGRATING 4 MG TAB PO PRN ×2 (03:48→20:37)
[2017-10-26] MEDS ORDERED: PANTOPRAZOLE SODIUM 40 MG TAB PO ONE (04:35)
[2017-10-26] MEDS: PANTOPRAZOLE SODIUM 40 MG TAB PO SCH (04:36)
[2017-10-26 05:07] LABS: PLATELET COUNT 348 10^3/uL (150-400)
[2017-10-26] MEDS: IPRATROPIUM/ALBUTEROL 3 ML DEYVIAL IH SCH ×4 (05:39→21:31)
[2017-10-26] MEDS: CEFEPIME HCL 2 GM in D5W 100 ML IV SCH ×3 (06:03→21:49)
[2017-10-26] MEDS: OSELTAMIVIR 6 MG/ML UDSYR PO SCH (08:50)
[2017-10-26] MEDS: morphINE SR 15 MG TAB PO SCH ×2 (08:52→20:37)
[2017-10-26] MEDS: ATORVASTATIN CALCIUM 40 MG TAB PO SCH (08:52)
[2017-10-26] MEDS: PREGABALIN 75 MG CAP PO SCH ×2 (08:52→20:37)
[2017-10-26] MEDS: METOPROLOL TARTRATE 25 MG TAB PO SCH (08:52)
[2017-10-26] MEDS: ENOXAPARIN 40 MG/0.4 ML SYR SC SCH (08:53)
[2017-10-26] MEDS: NICOTINE 21 MG/24 HR PATCH TD SCH (08:53)
[2017-10-26] MEDS ORDERED: predniSONE 20 MG TAB PO SCH (09:00)
[2017-10-26] MEDS ORDERED: Herbals/Supplements -Info Only PO SCH (09:00)
--- NOTE | 2017-10-26 11:39 | ASMTCMCOM ---
CM Note CM Note Notes: Patient admitted with shortness of breath and diagnosed with Influenza A. She has COPD at baseline and normally uses 2L O2 at home. She lives independently with and will likely discharge home with no needs other than an evaluation of her home O2 regimen. Case Management available if any other needs arise. Current CM Discharge plan: Home with (Respiratory Therapy to address home O2) Date Signed: 10/26/2017 11:38 AM Electronically Signed By:Devi Hope RN
--- NOTE | 2017-10-26 15:53 | HOSPPROG ---
Hospitalist Progress Note Assessment/Plan: # Sepsis - 2/2 pulmonary source - continue tx with Abx and tamiflu - hemodynamically stable this am after IVF and treatment # Acute influenza A - responded well to Tamiflu overnight - cont Tamiflu x 10 doses # Pneumonia - pt with new infiltrates on CXR (personally reviewed and interpreted) in RLL and RUL difficult to discern if from influenza or underlying bacterial PNA - procalcitonin cw with local bacterial infection - cont current antibiotics - when sputum and Bcx negative for staph will transition to PO - cont Tamiflu - cont inhaled beta agonists # COPD - wean steroids to 40mg tomorrow and short taper after discharge- oxygen saturations 94% on 4L - cont inhaled meds and treatment above #Acute hypoxic resp Failure - 2/2 above # PE - continue anticoagulation -INR 1.7 - check INR in am # chronic pain cont home meds # proph - on full anticoagulation for PE # dispo - potentially tomorrow if continue to improve I have discussed case with RN - continue current Abx until cx negative x 24 hours Subjective: feels better today - still poor appetite Objective: Vital Signs Temp Pulse Resp BP Pulse Ox 36.5 C 69 14 93/57 L 94 10/26/17 15:03 10/26/17 15:20 10/26/17 15:20 10/26/17 15:03 10/26/17 15:20 Microbiology 10/25/17 16:15 - Final Sputum, Expectorated Laboratory Results 10/26/17 04:38 10/26/17 04:38 10/25/17 10/26/17 10/27/17 05:59 05:59 05:59 Intake Total 1250 Output Total 700 Balance 550 PT 20.5 SEC (12.0-15.0) H 10/25/17 11:04 INR 1.75 (0.83-1.16) H 10/25/17 11:04 - Physical Exam Constitutional: chronically ill appearing Eyes: anicteric sclera Ears, Nose, Mouth, Throat: moist mucous membranes Cardiovascular: regular rate and rhythym Respiratory: no respiratory distress, reduced air movement, expiratory wheeze Gastrointestinal: normoactive bowel sounds Genitourinary: no bladder fullness Skin: warm Musculoskeletal: No asymmetric calves Neurologic: AAOx3 Psychiatric: interacting appropriately Lymph, Heme, Immunologic: no cervical LAD ICD10 Worksheet Patient Problems: Problems Problem Status Onset Influenza A Acute Pneumonia Acute Chronic obstructive pulmonary disease with acute exacerbation Acute Coronary artery disease Acute NSTEMI (non-ST elevated myocardial infarction) Acute Pulmonary embolism Acute
[2017-10-26] MEDS: ACETAMINOPHEN 500 MG TAB PO PRN ×2 (16:28→21:50)
[2017-10-26] MEDS: OSELTAMIVIR PHOSPHATE 75 MG CAP PO SCH (17:31)
[2017-10-26] MEDS: hydrOXYzine HCL 25 MG TAB PO SCH (20:37)
[2017-10-26] MEDS: WARFARIN SODIUM 2.5 MG TAB PO SCH (20:37)
[2017-10-27 03:56] LABS: INR 1.53 (0.83-1.16); PROTIME(PATIENT) 18.5 SEC (12.0-15.0)
[2017-10-27] MEDS: VANCOMYCIN HCL/NORMAL SALINE 250 ML IV SCH (04:46)
[2017-10-27] MEDS: IPRATROPIUM/ALBUTEROL 3 ML DEYVIAL IH SCH ×2 (05:21→09:28)
[2017-10-27] MEDS: CEFEPIME HCL 2 GM in D5W 100 ML IV SCH ×2 (06:08→14:13)
[2017-10-27] MEDS: ENOXAPARIN 40 MG/0.4 ML SYR SC SCH (07:55)
[2017-10-27] MEDS: OSELTAMIVIR PHOSPHATE 75 MG CAP PO SCH (07:55)
[2017-10-27] MEDS: NICOTINE 21 MG/24 HR PATCH TD SCH (07:55)
[2017-10-27] MEDS: PANTOPRAZOLE SODIUM 40 MG TAB PO SCH (07:55)
[2017-10-27] MEDS: PREGABALIN 75 MG CAP PO SCH (07:56)
[2017-10-27] MEDS: ACETAMINOPHEN 500 MG TAB PO PRN (07:56)
[2017-10-27] MEDS: morphINE SR 15 MG TAB PO SCH (07:56)
[2017-10-27] MEDS: ATORVASTATIN CALCIUM 40 MG TAB PO SCH (07:56)
[2017-10-27] MEDS: METOPROLOL TARTRATE 25 MG TAB PO SCH (07:56)
[2017-10-27 08:05] VITALS: BP 126/69; TEMP 97.6
[2017-10-27] MEDS ORDERED: predniSONE 20 MG TAB PO SCH (09:00)
[2017-10-27 09:35] VITALS: PULSE 59; RESP 20; O2SAT 95
--- NOTE | 2017-10-27 10:17 | ASMTCMCOM ---
CM Note CM Note Notes: Spoke w/ , would like pt to have HH RN, to check O2 sats when home. CM discussed homecare with pt and she agrees. CM notified Ha and set up [facility] (RN). DC Plan: Homecare [facility]/RN Date Signed: 10/27/2017 10:17 AM Electronically Signed By:Sarah Peters RN
--- NOTE | 2017-10-27 10:32 | PDIAF ---
- Diagnosis Diagnosis: influenza A Code Status: Full Code - Medication Management Discharge Medications: Medications to Continue on Transfer Atorvastatin Calcium [Lipitor 40 mg (*)] 40 mg PO DAILY 02/16/16 [Last Taken ] Ondansetron HCl [Zofran] 4 mg PO Q6 PRN 02/16/16 [Last Taken 10/24/17] Pantoprazole Sodium [Protonix 40mg (*)] 40 mg PO DAILY 02/16/16 [Last Taken ] oxyCODONE IR [Oxycodone Ir (*)] 30 mg PO TID PRN 02/16/16 [Last Taken 10/25/17] Albuterol [Proventil Inhaler HFA (*)] 1 - 2 puffs IH DAILY PRN 05/07/17 [Last Taken 10/24/17] Metoprolol Tartrate [Lopressor 25 mg (*)] 25 mg PO DAILY 05/09/17 [Last Taken ] Warfarin Sodium [Coumadin 2.5MG (*)] 2.5 mg PO SUMOTUWETHSA@09/16/17 [Last Taken 10/24/17] morphINE SR [Ms Contin/Oramorph 15 mg (*)] 15 mg PO BID 09/19/17 [Last Taken ] Acetaminophen [Tylenol 325mg (*)] 325 mg PO TID PRN 10/20/17 [Last Taken ] Herbals/Supplements -Info Only 1 ea PO DAILY 10/20/17 [Last Taken Unknown] Pregabalin [Lyrica 75mg (*)] 75 mg PO BID 10/20/17 [Last Taken 10/25/17] Warfarin Sodium [Coumadin 5MG (*)] 5 mg PO FR@21 10/20/17 [Last Taken 10/21/17] hydrOXYzine HCL [hydrOXYzine HCL (RX)] 25 mg PO HS 10/20/17 [Last Taken 10/24/17 ] Ipratropium/Albuterol [Combivent Respimat Inhal [place](*)] 1 inh IH QID #0 [Last Taken 10/25/17] Amoxicillin/Clavulanate Pot [Augmentin 875 MG TAB (*)] 875 mg PO BID #8 tab [Last Taken Unknown] Oseltamivir Phosphate [Tamiflu 75 mg (*)] 75 mg PO BIDMEAL #6 cap 10/27/17 [ Last Taken Unknown] predniSONE [Prednisone] 40 mg PO DAILY #35 tablet 10/27/17 [Last Taken Unknown] Discharge Medications: Refer to the Discharge Home Medication list for PRN reason. - Orders Services needed: Home Care, Registered Nurse Home Care Face to Face: I certify that this patient was under my care and that I had the required [id number] encounter meeting the encounter requirements on the discharge day. My findings support the fact that the patient is homebound as defined in Home Care Face to Face Continued: CMS Chapter 7 Medicare Benefits Manual 30.1.1 , The condition of the patient is such that there exists a normal inability to leave home and consequently, leaving home would require a considerable and taxing effort. Isolation Type: Droplet Isolation Diet Recommendation: no restrictions on diet Diet Texture: Regular Texture Diet - Labs/Radiology PT/INR Date: 11/01/17 - Follow Up Care Current Providers and Referrals: Juventino Bliss, [Primary Care Provider] - As per Instructions
--- NOTE | 2017-10-27 12:30 | PDHOMEO2F ---
Home Oxygen Face to Face Home Orders: I certify that a physician or a nurse practitioner or physician's study assistant has had a [id number] encounter with this patient on the date of this order due to the diagnosis listed, which relates to the primary reason the patient requires home oxygen. Alternative treatments have been tried, or considered, and deemed ineffective. It is anticipated that supplemental oxygen will result in improvement with treatment. Home oxygen qualifying diagnosis: influnza A and CAP and COPD SpO2 on room air (%): 86 Frequency of home oxygen needed: continuous Home oxygen liters per minute: 2 Home oxygen delivery device: nasal cannula Concentrator: No E-tanks for mobility and back up: Yes If ordering portable O2, is the patient mobile in the home?: Yes I certify that, based on these findings, the home oxygen is medically necessary for this patient for the following length of time. Length of time home oxygen needed: 1 month
--- NOTE | 2017-10-27 17:24 | ASDISCHSUM ---
Discharge Information Plan Status:Home with Home Health Medically Cleared to Leave: Discharge Date:10/27/2017 03:17 PM CM D/C Disposition:Home Health Service ADT D/C Disposition:Home Health Service Projected Discharge Date:10/27/2017 02:00 PM Transportation at D/C:Taxicab Discharge Delay Reason: Follow-Up Date:10/27/2017 02:00 PM Discharge Slot: Final Diagnosis: Placement Information Referral Type:*Home Health Care Services Referral ID:[id number] Provider Name:[facility] Address 1:[address] [address] Address 2: City:[place] Selection Factors: State:[place] Patient Contact Information Contact Name:SWATI Relationship: Address:[address] Work Phone: City:[place] Alternate Phone: State/Zip Code:[place] [address] Email: Financial Information Financial Class:MD Primary Plan Desc:[employer] [place] Primary Plan Number:[id number] Secondary Plan Desc: Secondary Plan Number: Assessment Information [facility] CM Progress Note CM Note CM Note Notes: Patient admitted with shortness of breath and diagnosed with Influenza A. She has COPD at baseline and normally uses 2L O2 at home. She lives independently with and will likely discharge home with no needs other than an evaluation of her home O2 regimen. Case Management available if any other needs arise. Current CM Discharge plan: Home with (Respiratory Therapy to address home O2) Date Signed: 10/26/2017 11:38 AM Electronically Signed By:Devi Hope RN [facility] CM Progress Note CM Note CM Note Notes: Humza w/ , would like pt to have RN, to check O2 sats when home. CM discussed homecare with pt and she agrees. TAMI notified Ha and set up [facility] (RN). DC Plan: Homecare [facility]/RN Date Signed: 10/27/2017 10:17 AM Electronically Signed By:Sarah Peters RN Case Management Discharge Plan Note Case Management Discharge Discharge Order Complete? Answers: Yes Patient to Obtain Answers: Independently Medications Transportation Arranged Answers: Other Notes: [facility] will Pick (Date 10/27/2017 03:00 PM & Time) Discharge Comments Notes: Annita/maryana BROOKE, final orders faxed, Ha at [facility] notified. RN to leave report. CM called [employer] cab will belt picker at 3pm Date Signed: 10/27/2017 12:58 PM Electronically Signed By:Sarah Peters RN Intervention Information
--- NOTE | 2017-10-27 18:26 | GDS ---
[f rep st] DISCHARGE SUMMARY DISCHARGE DIAGNOSES: Include: 1. Acute influenza A. 2. Community-acquired pneumonia. 3. Chronic obstructive pulmonary disease exacerbation. 4. Chronic pain, on continuous narcotics. HISTORY OF PRESENT ILLNESS: A 61-year-old female, who had a very recent hospital admission where she was found to have a COPD exacerbation and presumed aspiration versus community-acquired pneumonia. She was discharged on oral prednisone and oral antibiotics. Returned home, felt well, then 48 hours later, developed new symptoms of cough and shortness of breath. For details of the patient's initial presentation, please refer to History and Physical dictated on 10/25/2017. CONSULTATIVE SERVICES: None. PROCEDURES DONE: None. HOSPITAL COURSE: By issue: 1. Acute influenza A. the patient had a respiratory viral PCR sent on her initial hospitalization, which was negative. I believe the patient acquired influenza in-between her initial hospitalization and repeat presentation to the hospital. Since the duration of symptoms was so short on re-presentat ion, we did initiate chemical therapy. The patient had a quick response to this treatment with impro vement in her shortness of breath and cough in the first 24 hours of her stay. She will complete a 1 0-dose course of Tamiflu in the outpatient setting. 2. Community-acquired pneumonia. The patient had not completed her antibiotic therapy when she re-p resented to the hospital. We did check a procalcitonin in hopes that it would support not continuing antibiotics but instead, showed likelihood of a localized infection. We are therefore completing a full course of antibiotics. She was given IV while in the hospital and is being discharged to [facility] te a 10-day course with 4 additional days of oral Augmentin. 3. COPD exacerbation. The patient is being discharged on a prednisone taper post disposition. MEDICATIONS AT THE TIME OF TRANSFER: Please reference med rec printed on 10/27/2017. FOLLOWUP APPOINTMENTS: Include with her PCP, Dr. Bliss, post completion of the Tamiflu and antibio tic courses. The patient will be receiving home nursing support post disposition. PENDING STUDIES: At the time of this dictation, include blood cultures and sputum cultures which are preliminary no growth at the time of her disposition. TIME SEEN: I spent greater than 30 minutes in the planning and coordination of this discharge. /[id number]/MODL
[2017-10-28] MEDS ORDERED: WARFARIN SODIUM 5 MG TAB PO SCH (21:00)
--- NOTE | 2017-11-02 13:02 | PQFORM ---
PHYSICIAN QUERY FORM Needs Your Response This query form is being sent to you to assure this patient record is coded properly. Please respond to the question below: PULL TAB DEALER QUESTION: Dr Poole Sepsis was mentioned in the progress notes but not in the Discharge Summary. Did this patient have Sepsis ? _x__ Yes ___ No ___ Other (please specify ) ___ Unable to determine Thank You Marimar [facility] Supervisor [facility] INSTRUCTIONS FOR RESPONSE: Answer question by clicking on the "Edit Document" button. Move cursor to area below the stars. When complete, hit "Save." Click on the "Sign" button, then click "Sign" again. Type in your PIN and hit "Enter." MTDD
== END 2017-10-27 15:17 | disposition home health service (06) | DRG 871 ==
LOC: F3E 14:12
PROVIDERS: ADMIT Hospitalist; ATTEND Hospitalist
DX: A41.9 Sepsis, unspecified organism (principal); J10.00 Influenza due to other identified influenza virus with unspecified type of pneumonia; J18.9 Pneumonia, unspecified organism; J44.1 Chronic obstructive pulmonary disease with (acute) exacerbation; J96.21 Acute and chronic respiratory failure with hypoxia; C34.90 Malignant neoplasm of unspecified part of unspecified bronchus or lung; I25.10 Atherosclerotic heart disease of native coronary artery without angina pectoris; G89.29 Other chronic pain; F11.20 Opioid dependence, uncomplicated; F17.210 Nicotine dependence, cigarettes, uncomplicated; Z95.5 Presence of coronary angioplasty implant and graft; Z79.01 Long term (current) use of anticoagulants; Z86.711 Personal history of pulmonary embolism
CPT/HCPCS: 96365; 97116-GP; 97161-GP; 97165-GO; 97535-GO; J0692; J0696; J1650; J3370

== ENCOUNTER 2017-12-21 14:07 | Emergency (ER) | payer MEDICAID ==
[2017-12-21 14:21] VITALS: TEMP 98.4
[2017-12-21] MEDS ORDERED: NS 1,000 ML IV ONE (14:28)
--- NOTE | 2017-12-21 14:29 | EDPHY ---
H & P Time Seen by Provider: 12/21/17 14:19 HPI/ROS: CHIEF COMPLAINT: Hypotension HISTORY OF PRESENT ILLNESS: This patient is an anticoagulated (Coumadin) 62 y/o female with history of small -cell lung cancer and COPD arriving at the request of her primary care physician , Dr. Bliss, for evaluation of hypotension. She is currently undergoing chemotherapy treatment, and her last treatment was about one week ago. She has followed up with her primary care provider twice since then and was noted to be hypotensive with systolic pressure in the 70s at both of these visits. She has been dizzy with orthostatic changes but this resolves quickly. She has nausea related to her chemotherapy. The patient also has recurrent UTIs and is currently on a course of Levaquin which she started this morning for UTI diagnosed Tuesday. She has a cough, but this is chronic due to her cancer and COPD and she has not noted any recent changes to this. She states she generally has low blood pressure and that she feels relatively well other than the side effects of her chemotherapy. She denies fever, chest pain, abdominal pain, headache, weakness, or other associated symptoms. REVIEW OF SYSTEMS: A 10 point review of systems was performed and is negative with the exception of the elements mentioned in the history of present illness. Past Medical/Surgical History: Small-cell lung cancer COPD Chronic hypoxic respiratory failure CAD s/p stent placement History of PE/DVT, anticoagulated (Coumadin) Chronic back pain with narcotic dependency Anxiety Social History: . at bedside. Light cigarette use. Smoking Status: Light smoker Physical Exam: General Appearance: Alert, pleasant Eyes: Pupils equal and round, no conjunctival pallor or injection ENT, Mouth: Mucous membranes moist Neck: Normal inspection Respiratory: Lungs are clear to auscultation Cardiovascular: Regular rate and rhythm Gastrointestinal: Abdomen is soft and non-tender Neurological: A&O, nonfocal exam Skin: Warm and dry, no rash Extremities: Nontender, no pedal edema Psychiatric: Mood and affect normal Constitutional: Initial Vital Signs Temperature (C) 36.9 C 12/21/17 14:19 Heart Rate 118 H 12/21/17 14:19 Respiratory Rate 16 12/21/17 14:19 Blood Pressure 118/83 H 12/21/17 14:19 O2 Sat (%) 94 12/21/17 14:19 O2 Delivery Mode Room Air Allergies/Adverse Reactions: nitrofurantoin macrocrystalline [From Macrobid] Allergy (Severe, Verified 10:43) Swelling/neck,face,throat nitrofurantoin Allergy (Unknown, Unverified 10/27/17 11:28) Swelling/neck,face,throat ciprofloxacin Allergy (Verified 10/25/17 10:43) "BURNING SENSATION IN MY FEET" codeine Allergy (Verified 10/25/17 10:43) Vomiting nitrofurantoin macrocrystalline Allergy (Unknown, Uncoded 10/27/17 11:28) Swelling/neck,face,throat Home Medications: Medication Instructions Recorded Atorvastatin Calcium [Lipitor 40 40 mg PO DAILY 02/16/16 mg (*)] Ondansetron HCl [Zofran] 4 mg PO Q6 PRN 02/16/16 Pantoprazole Sodium [Protonix 40mg 40 mg PO DAILY 02/16/16 (*)] oxyCODONE IR [Oxycodone Ir (*)] 30 mg PO TID PRN 02/16/16 Albuterol [Proventil Inhaler HFA 1 - 2 puffs IH DAILY PRN 05/07/17 (*)] Metoprolol Tartrate [Lopressor 25 25 mg PO DAILY 05/09/17 mg (*)] Warfarin Sodium [Coumadin 2.5MG 2.5 mg PO SUMOTUWETHSA@09/16/17 (*)] morphINE SR [Ms Contin/Oramorph 15 15 mg PO BID 09/19/17 mg (*)] Acetaminophen [Tylenol 325mg (*)] 325 mg PO TID PRN 10/20/17 Herbals/Supplements -Info Only 1 ea PO DAILY 10/20/17 Pregabalin [Lyrica 75mg (*)] 75 mg PO BID 10/20/17 Warfarin Sodium [Coumadin 5MG (*)] 5 mg PO FR@21 10/20/17 hydrOXYzine HCL [hydrOXYzine HCL 25 mg PO HS 10/20/17 (RX)] Ipratropium/Albuterol [Combivent 1 inh IH QID #0 10/22/17 Respimat Inhal [place](*)] Amoxicillin/Clavulanate Pot 875 mg PO BID #8 tab 10/27/17 [Augmentin 875 MG TAB (*)] Oseltamivir Phosphate [Tamiflu 75 75 mg PO BIDMEAL #6 cap 10/27/17 mg (*)] predniSONE [Prednisone] 40 mg PO DAILY #35 tablet 10/27/17 Medical Decision Making - Diagnostics EKG Interpretation: EKG interpreted by me reveals normal sinus rhythm, rate 88, low voltage in the frontal leads,, no ST or T segment changes. Interpretation: Borderline EKG ED Course/Re-evaluation: This is a non-toxic appearing pt with lung cancer, s/p recent chemotherapy and UTI who was hypotensive MEDICAL SUPPORT SPECIALIST. Initial BP adequate here, 110/83. Will give 1 L of normal saline then reassess. No acute pulmonary symptoms, so chest x-ray not ordered. 1530: Labs--elevated BUN of 24, consistent with dehydration. No leukocytosis or neutropenia. 1600: BP 102/79, HR 74 after 1 liter of NS. Ambulates with steady gait, no dizziness. Clinical presentation c/w dehydration. Safe/stable for d/c. Encouraged increased oral fluids. Differential Diagnosis: Differential diagnosis includes though not limited to severe dehydration, pneumonia, pyelonephritis, ACS, ARF. - Data Points Laboratory Results: Laboratory Results 12/21/17 14:42 12/21/17 14:42 Medications Given: Discontinued Medications Sodium Chloride (Ns) 1,000 mls @ 0 mls/hr IV EDNOW ONE; Wide Open PRN Reason: Protocol Stop: 12/21/17 14:29 Last Admin: 12/21/17 14:44 Dose: 1,000 mls Departure - Departure Disposition: Home, Routine, Self-Care Clinical Impression: Dehydration Condition: Good Instructions: Dehydration (ED) Additional Instructions: 1. Stay well hydrated, drinking plenty of fluids. 2. Continue taking Levaquin for your UTI. 3. Follow up with Dr. Bliss for further evaluation. 4. Return to the emergency department for fever, chest pain, shortness of breath , weakness, dizziness, or other worsening of condition. Referrals: Juventino Bliss DO [Primary Care Provider] - As per Instructions Report Scribed for: Jaimee Kwok Report Scribed by: Marie Paul Date of Report: 12/21/17 Time of Report: 14:45 Physician Review and Approval Statement: 12/21/17 14:45 Portions of this note were transcribed by a manager medical device. I personally performed a history, physical exam, medical decision making, and confirmed accuracy of information the transcribed note.
--- NOTE | 2017-12-21 15:02 | CPEKG ---
Heart Rate: 88 RR Interval: 682 P-R Interval: 144 QRSD Interval: 70 QT Interval: 356 QTC Interval: 431 P [place]: 60 QRS [place]: 41 T Wave [place]: 37 EKG Severity - ABNORMAL ECG - EKG Impression: SINUS RHYTHM EKG Impression: LEFT ATRIAL ABNORMALITY EKG Impression: LOW VOLTAGE IN FRONTAL LEADS Electronically Signed By: Jaimee Kwok 21-Dec-2017 19:06:09
[2017-12-21 15:14] LABS: INR 1.47 (0.83-1.16)
[2017-12-21 15:16] LABS: PLATELET COUNT 397 10^3/uL (150-400)
[2017-12-21 16:20] VITALS: BP 102/79; PULSE 79; RESP 18; O2SAT 93
== END 2017-12-21 16:20 | disposition home or self-care (01) ==
DX: E86.0 Dehydration (principal); J44.9 Chronic obstructive pulmonary disease, unspecified; F17.210 Nicotine dependence, cigarettes, uncomplicated; I25.10 Atherosclerotic heart disease of native coronary artery without angina pectoris; E86.9 Volume depletion, unspecified; Z79.01 Long term (current) use of anticoagulants; Z85.118 Personal history of other malignant neoplasm of bronchus and lung

== ENCOUNTER 2018-01-27 09:42 | Outpatient (CLI) | payer MEDICAID ==
[2018-01-27] MEDS ORDERED: fentaNYL 100 MCG/2 ML INJ IVP PRN (10:01)
[2018-01-27] MEDS ORDERED: FLUMAZENIL 0.5 MG/5 ML MDV IVP PRN (10:01)
[2018-01-27] MEDS ORDERED: MIDAZOLAM 2 MG/2 ML VIAL IVP PRN (10:01)
[2018-01-27] MEDS ORDERED: MEPERIDINE 25 MG/ML SYR IVP PRN (10:01)
[2018-01-27] MEDS ORDERED: NALOXONE HCL 0.4 MG/ML INJ IVP PRN (10:01)
[2018-01-27] MEDS ORDERED: NALOXONE HCL 0.4 MG/ML INJ ONE (10:10)
[2018-01-27] MEDS ORDERED: FLUMAZENIL 0.5 MG/5 ML MDV IVP ONE (10:10)
[2018-01-27] MEDS ORDERED: MIDAZOLAM 2 MG/2 ML VIAL ONE (10:11)
[2018-01-27] MEDS ORDERED: fentaNYL 100 MCG/2 ML INJ ONE (10:11)
[2018-01-27] MEDS ORDERED: NS 1,000 ML IV SCH (10:15)
--- NOTE | 2018-01-27 10:21 | PDGENHP ---
History & Physical Chief Complaint: LUNG CANCER FOLLOW UP CT History of Present Illness: LUNG CA 2017 Pertinent Past, Social, Family History: COLONOSCOPY, RESECTION, CHOLY, CARDIAC STENTS Relevant Physical Exam: NERVOUS ABOUT CLAUSTROPHOBIA Cardiorespiratory Assessment: RRR, CTA
--- NOTE | 2018-01-27 10:21 | PDPROPOC ---
Sedation Plan of Care Sedation Plan of Care: vital signs stable, mental status noted, patient educated of risks, benefits, alternatives, patient can tolerate sedation ASA Classification: ASA 3 Planned drugs: fentanyl, midazolam Mallampati Score: Class 2 Mallampati Reference Image: Patient passed 3-3-2 rule?: Yes
[2018-01-27 10:47] VITALS: TEMP 99
[2018-01-27] MEDS ORDERED: IOPAMIDOL (ISOVUE-300) 100 ML BTL ONE (10:48)
[2018-01-27 11:38] VITALS: RESP 14
[2018-01-27 12:04] VITALS: BP 119/77; PULSE 88; O2SAT 94
== END 2018-01-27 12:24 | disposition home or self-care (01) ==
LOC: FIMAGING 09:42
PROVIDERS: ATTEND Physician Assistant
DX: C34.90 Malignant neoplasm of unspecified part of unspecified bronchus or lung (principal); Z90.49 Acquired absence of other specified parts of digestive tract
CPT/HCPCS: J2250; J2310; J3010; Q9967

== ENCOUNTER 2018-04-08 06:01 | Inpatient (IN) | payer MEDICAID ==
[2018-04-08] MEDS ORDERED: NS 1,000 ML IV ONE ×2 (06:04→06:26)
--- NOTE | 2018-04-08 06:08 | EDPHY ---
H & P Stated Complaint: AMS Source: Patient, EMS, Old records Exam Limitations: Clinical condition - Personal History Tetanus Vaccine Date: 2013 - Medical/Surgical History Hx Asthma: No Hx Chronic Respiratory Disease: Yes Hx Diabetes: No Hx Cardiac Disease: Yes Hx Renal Disease: No Hx Cirrhosis: No Hx Alcoholism: No Hx HIV/AIDS: No Hx Splenectomy or Spleen Trauma: No Other PMH: PMH- chronic pain, chostochondritis, [place] 10/20, basal cell carcinoma May 2018, hld, gerd. PSHx: brain surgery for aneurysm, gall bladder, right thumb stents cardiac COPD - Social History Smoking Status: Light smoker Time Seen by Provider: 04/08/18 06:13 HPI/ROS: HPI The patient presents brought in by paramedics for altered mental status with confusion. She was found by neighbors sitting on their porch in her underwear very early this morning. 911 was called. The patient required Versed 2.5 mg IV to calm her because she was very agitated. The patient has a history of small cell lung cancer and is receiving chemotherapy, last treatment was 3 weeks ago. She has COPD and also history of recurrent urinary tract infections. Her reports that she has been confused over the last 1 day. Normally she does not have any confusion. She has not had any falls that she is aware of. The patient is unable to provide any meaningful history at this time due to her confusion. REVIEW OF SYSTEMS Constitutional: No fever, no chills. Eyes: No discharge. ENT: No sore throat. Cardiovascular: No chest pain, no palpitations. Respiratory: No cough, no shortness of breath. Gastrointestinal: No abdominal pain, no vomiting. Genitourinary: No hematuria. Musculoskeletal: No back pain. Skin: No rashes. Neurological: No headache. PMHx: Small cell lung cancer receiving chemotherapy, history of UTIs, history of dehydration, COPD, on home oxygen Soc Hx: Lives at home with her PHYSICAL General Appearance: Alert, no distress Eyes: Pupils equal and round no pallor or injection ENT, Mouth: Mucous membranes dry Respiratory: There are no retractions, lungs are clear to auscultation Cardiovascular: Tachycardic rate and regular rhythm Gastrointestinal: Abdomen is soft and non-tender, no masses, bowel sounds normal Neurological: Alert, disoriented, cannot recall her name, where she is, the date, moves all extremities equally with no focal weakness Skin: Warm and dry, scattered ecchymoses throughout her lower extremities Musculoskeletal: Neck is supple non tender Extremities: symmetrical, full range of motion Psychiatric: There is no agitation, the patient is cooperative (Saundra Donald) Constitutional: Initial Vital Signs Temperature (C) 37.1 C 04/08/18 06:10 Heart Rate 109 H 04/08/18 06:10 Respiratory Rate 18 04/08/18 06:10 Blood Pressure 91/69 L 04/08/18 06:10 O2 Sat (%) 88 L 04/08/18 06:10 O2 Delivery Mode Room Air O2 (L/minute) 4 Allergies/Adverse Reactions: nitrofurantoin macrocrystalline [From Macrobid] Allergy (Severe, Verified 06:12) Swelling/neck,face,throat nitrofurantoin Allergy (Unknown, Verified 04/08/18 06:12) Swelling/neck,face,throat ciprofloxacin Allergy (Verified 04/08/18 06:12) "BURNING SENSATION IN MY FEET" codeine Allergy (Verified 04/08/18 06:12) Vomiting nitrofurantoin macrocrystalline Allergy (Unknown, Uncoded 04/08/18 06:12) Swelling/neck,face,throat Home Medications: Medication Instructions Recorded Atorvastatin Calcium [Lipitor 40 40 mg PO DAILY 02/16/16 mg (*)] Ondansetron HCl [Zofran] 4 mg PO Q6 PRN 02/16/16 Pantoprazole Sodium [Protonix 40mg 40 mg PO DAILY 02/16/16 (*)] oxyCODONE IR [Oxycodone Ir (*)] 30 mg PO TID PRN 02/16/16 Albuterol [Proventil Inhaler HFA 1 - 2 puffs IH DAILY PRN 05/07/17 (*)] Metoprolol Tartrate [Lopressor 25 25 mg PO DAILY 05/09/17 mg (*)] Warfarin Sodium [Coumadin 2.5MG 2.5 mg PO SUTUTHSA@21 09/16/17 (*)] morphINE SR [Ms Contin/Oramorph 15 15 mg PO BID 09/19/17 mg (*)] Acetaminophen [Tylenol 325mg (*)] 325 mg PO TID PRN 10/20/17 Herbals/Supplements -Info Only 1 ea PO DAILY 10/20/17 Pregabalin [Lyrica 75mg (*)] 75 mg PO BID 10/20/17 Warfarin Sodium [Coumadin 5MG (*)] 5 mg PO MWF 10/20/17 hydrOXYzine HCL [hydrOXYzine HCL 25 mg PO HS 10/20/17 (RX)] Ipratropium/Albuterol [Combivent 1 inh IH QID #0 10/22/17 Respimat Inhal [place](*)] Medical Decision Making - Diagnostics Imaging: I viewed and interpreted images myself - Diagnostics EKG Interpretation: EKG: Complete interpretation has been separately recorded in the [facility] archive. Summary impression: Sinus tachycardia with rate of 106 (Saundra Donald) Imaging Results: Imaging Impressions Chest X-Ray 04/08/18 06:04 Impression: 1. Improving left lower lobe nodule. 2. Left basilar consolidation. Pneumonia vs atelectasis (potentially post radiation therapy). Head CT 04/08/18 06:14 Impression: Nothing acute identified. No hemorrhage. Results called to Dr. Jose Enrique Savage at 8:47 AM General information for patients regarding this examination can be found at [email or web address]. If you have questions or comments about this report, please contact me at [phone] (hospital) or [phone] (cell). Chest x-ray two view shows new small left-sided pleural effusion, interpreted by me, radiology interpretation is pending. (Saundra Donald) Differential Diagnosis: This is a 62-year-old female with small cell lung cancer on chemotherapy, last 3 weeks ago per her report who presents brought in by ambulance for altered mental status. Other past medical history includes COPD, urinary tract infections. This is apparently a decline over the last 24 hr according to her . On exam here, she is tachycardic, hypoxic, though it is unclear if she requires home oxygen or not for her COPD. Differential diagnosis at this time includes infection such as UTI or pneumonia , electrolyte disturbance, renal failure, closed head injury. Plan for IV fluids, basic labs, chest x-ray, CT scan of head. The patient received 1 L of normal saline. Her mental status remained the same and she was very confused. Her arrived and said that they had gone to see the primary care doctor a few days ago and she was treated for a UTI with an antibiotic. She also was told she was dehydrated and her has been trying to get her to drink fluids. Urine dip shows no signs of urinary tract infection, however she could have a partially treated infection. Chest x-ray shows left-sided pleural effusion, unclear if there is an accompanying infiltrate. She has been given a dose of ceftriaxone and azithromycin. Blood cultures have been sent. She has been bolused with fluid. We plan to repeat a lactate. Other labs show leukocytosis , potassium of 2.6. EKG is unremarkable. Plan for admission to the hospital for altered mental status. I have discussed the case with Dr. Harper of the hospitalist service. Patient went to the CT scan, however was uncooperative, unable to lie flat and taking offer monitors. I have ordered a dose of Ativan. I feel she should have the CT scan before going to the hospital floor. I will sign out the case to Dr. Savage. Hospital bed has been ordered. (Saundra Donald) Critical Care Time: CRITICAL CARE Critical care time spent by me, Dr. Donald, exclusively with this patient was 30 minutes, exclusive of PA time and exclusive of procedures. The organ system at risk was cardiac and I gave IV fluids, IV antibiotics, IV sedation, admitted the patient to the step-down unit to prevent worsening of the patients condition. (Saundra Donald) Other Provider: The patient was in the emergency department awaiting a floor bed. A CT scan was obtained. There is no evidence of intracranial hemorrhage noted per Dr. Crooks. I reviewed the results of the study personally. Additionally, the patient's urinalysis does demonstrate evidence of an infection. She has been started on ceftriaxone. A repeat lactic acid has been performed. It is currently 1.8. In reviewing the patient's workup. She has evidence of urinary tract infection and possible pneumonia. She has leukocytosis and tachycardia resulting in positive SIRS criteria and in the setting of an active infection meets criteria for severe sepsis. The patient is not hypotensive. She received IV fluid rehydration. The patient was started on broad-spectrum antibiotics. (Matthieu Savage) - Data Points Laboratory Results: Laboratory Results 04/08/18 06:00 04/08/18 06:00 04/08/18 04/08/18 04/08/18 06:56 06:24 06:00 WBC RBC Hgb Hct MCV MCH MCHC RDW Plt Count MPV Neut % (Auto) Lymph % (Auto) [place] % (Auto) Eos % (Auto) Baso % (Auto) Nucleat RBC Rel Count Absolute Neuts (auto) Absolute Lymphs (auto) Absolute Monos (auto) Absolute Eos (auto) Absolute Basos (auto) Absolute Nucleated RBC Immature Gran % Seg Neutrophils % Band Neutrophils % Lymphocytes % Monocytes % Eosinophils % Basophils % Metamyelocytes % Myelocytes % Promyelocytes % Blast Cells % Immature Gran # Absolute Seg Neuts Absolute Band Neuts Absolute Lymphocytes Absolute Monocytes Absolute Eosinophils Absolute Basophils Absolute Metamyelocyte Absolute Myelocytes Absolute Promyelocytes Absolute Plasma Cells Absolute Blast Cells Plasma Cells % Platelet Estimate Polychromasia Hypochromasia Microcytic Cells Oval Macrocytes Stomatocytes PT 22.2 SEC H SEC (12.0-15.0) INR 1.94 H (0.83-1.16) APTT 35.3 SEC SEC (23.0-38.0) POC Blood Source VENOUS Patient Temperature 37.1 DEGREES DEGREES POC VBG pH 7.57 H (7.31-7.42) POC VBG pCO2 42 mmHg mmHg (40-44) POC VBG pO2 23 mmHg L mmHg (35-40) POC VBG HCO3 38 mEq/L H mEq/L (22-26) POC VBG Total CO2 39 mEq/L H mEq/L (21-27) POC VBG Base Excess 16.0 mEq/L H mEq/L (-2.5-2.5) POC Mix VBG O2 Sat 48 % L % (65-75) Sodium Potassium Chloride Carbon Dioxide Anion Gap BUN Creatinine Estimated GFR Glucose POC Lactic Acid Sushil 2.8 mmol/L H mmol/L (0.7-2.1) Calcium Urine Color YELLOW Urine Appearance MODERATELY TURBID Urine pH 7.0 (5.0-7.5) Ur Specific [place] 1.012 (1.002-1.030) Urine Protein 1+ H (NEGATIVE) Urine Ketones NEGATIVE (NEGATIVE) Urine Blood NEGATIVE (NEGATIVE) Urine Nitrate NEGATIVE (NEGATIVE) Urine Bilirubin NEGATIVE (NEGATIVE) Urine Urobilinogen 4.0 EU H EU (0.2-1.0) Ur Leukocyte Esterase 3+ H (NEGATIVE) Urine RBC 15-25 /hpf H /hpf (0-3) Urine WBC 50-182 /hpf H /hpf (0-3) Ur Epithelial Cells 1+ /lpf /lpf (NONE-1+) Urine Glucose NEGATIVE (NEGATIVE) 04/08/18 04/08/18 06:00 06:00 WBC 15.73 10^3/uL H 10^3/uL (3.80-9.50) RBC 2.66 10^6/uL L 10^6/uL (4.18-5.33) Hgb 9.0 g/dL L g/dL (12.6-16.3) Hct 26.7 % L % (38.0-47.0) MCV 100.4 fL H fL (81.5-99.8) MCH 33.8 pg pg (27.9-34.1) MCHC 33.7 g/dL g/dL (32.4-36.7) RDW 21.5 % H % (11.5-15.2) Plt Count 312 10^3/uL 10^3/uL (150-400) MPV 10.8 fL fL (8.7-11.7) Neut % (Auto) Not Reported Lymph % (Auto) Not Reported [place] % (Auto) Not Reported Eos % (Auto) Not Reported Baso % (Auto) Not Reported Nucleat RBC Rel Count Not Reported Absolute Neuts (auto) Not Reported Absolute Lymphs (auto) Not Reported Absolute Monos (auto) Not Reported Absolute Eos (auto) Not Reported Absolute Basos (auto) Not Reported Absolute Nucleated RBC Not Reported Immature Gran % Not Reported Seg Neutrophils % 79.0 % % Band Neutrophils % 4.0 % % Lymphocytes % 9.0 % % Monocytes % 7.0 % % Eosinophils % 0 % % Basophils % 0 % % Metamyelocytes % 1.0 % % Myelocytes % 0 % % Promyelocytes % 0 % % Blast Cells % 0 % % Immature Gran # Not Reported Absolute Seg Neuts 12.43 10^/uL H 10^/uL (1.70-6.50) Absolute Band Neuts 0.63 10^3/uL 10^3/uL (0.00-0.70) Absolute Lymphocytes 1.42 10^3/uL 10^3/uL (1.00-3.00) Absolute Monocytes 1.10 10^3/uL H 10^3/uL (0.30-0.80) Absolute Eosinophils 0.00 10^3/uL L 10^3/uL (0.03-0.40) Absolute Basophils 0.00 10^3/uL L 10^3/uL (0.02-0.10) Absolute Metamyelocyte 0.16 10^3/mL H 10^3/mL (0.00-0.00) Absolute Myelocytes 0.00 10^3/mL 10^3/mL (0.00-0.00) Absolute Promyelocytes 0.00 10^3/uL 10^3/uL (0.00-0.00) Absolute Plasma Cells 0.00 10^3/uL 10^3/uL (0.00-0.00) Absolute Blast Cells 0.00 10^3/uL 10^3/uL (0.00-0.00) Plasma Cells % 0 % % Platelet Estimate ADEQUATE (ADEQ) Polychromasia 1+ H Hypochromasia 1+ H Microcytic Cells 2+ H Oval Macrocytes 2+ H Stomatocytes 1+ H PT INR APTT POC Blood Source Patient Temperature POC VBG pH POC VBG pCO2 POC VBG pO2 POC VBG HCO3 POC VBG Total CO2 POC VBG Base Excess POC Mix VBG O2 Sat Sodium 140 mEq/L mEq/L (135-145) Potassium 2.6 mEq/L L* mEq/L (3.3-5.0) Chloride 91 mEq/L L mEq/L (97-110) Carbon Dioxide 39 mEq/l H mEq/l (22-31) Anion Gap 10 mEq/L mEq/L (8-16) BUN 22 mg/dL mg/dL (7-23) Creatinine 1.2 mg/dL H mg/dL (0.6-1.0) Estimated GFR 45 Glucose 97 mg/dL mg/dL (70-100) POC Lactic Acid Sushil Calcium 6.2 mg/dL L mg/dL (8.5-10.4) Urine Color Urine Appearance Urine pH Ur Specific [place] Urine Protein Urine Ketones Urine Blood Urine Nitrate Urine Bilirubin Urine Urobilinogen Ur Leukocyte Esterase Urine RBC Urine WBC Ur Epithelial Cells Urine Glucose Medications Given: Discontinued Medications Sodium Chloride (Ns) 1,000 mls @ 0 mls/hr IV EDNOW ONE; Wide Open PRN Reason: Protocol Stop: 04/08/18 06:05 Last Admin: 04/08/18 06:57 Dose: 1,000 mls Sodium Chloride (Ns) 1,000 mls @ 0 mls/hr IV EDNOW ONE; Wide Open PRN Reason: Protocol Stop: 04/08/18 06:27 Last Admin: 04/08/18 08:10 Dose: 1,000 mls Potassium Chloride (Potassium Cl 10 Meq (Premix)) 100 mls @ 100 mls/hr IV EDNOW ONE Stop: 04/08/18 07:42 Last Admin: 04/08/18 07:33 Dose: 100 mls Lorazepam (Ativan Injection) 1 mg IVP EDNOW ONE Stop: 04/08/18 07:19 Last Admin: 04/08/18 07:21 Dose: 1 mg Potassium Chloride (Klor Packets) 40 meq PO EDNOW ONE Stop: 04/08/18 06:44 Last Admin: 04/08/18 07:32 Dose: 40 meq Point of Care Test Results: Blood Gas/Lactic Acid-Arterial 04/08/18 06:24 POC Blood Source VENOUS Blood Gas/Lactic Acid-Venous 04/08/18 06:24 POC VBG pH 7.57 H (7.31-7.42) POC VBG pCO2 42 mmHg mmHg (40-44) POC VBG pO2 23 mmHg L mmHg (35-40) POC VBG HCO3 38 mEq/L H mEq/L (22-26) POC VBG Total CO2 39 mEq/L H mEq/L (21-27) POC VBG Base Excess 16.0 mEq/L H mEq/L (-2.5-2.5) POC Mix VBG O2 Sat 48 % L % (65-75) POC Lactic Acid Sushil 2.8 mmol/L H mmol/L (0.7-2.1) Urine Dip Collection Date 04/08/18 Collection Time 06:46 Specific [place] (1.002-1.030) 1.015 PH (5.0-7.5) 7.0 Leukocytes (Negative) Negative Nitrites (Negative) Negative Protein (Negative) 3+ Glucose (Negative) 1+ Ketones (Negative) Trace Urobilnogen (0.2-1.0 EU) 0.2 Bilirubin (Negative) Negative Blood (Negative) Trace Departure - Departure Disposition: [facility] Clinical Impression: Small cell lung cancer, Tachycardia, Hypokalemia, Urinary tract infection, Severe sepsis Altered mental status Qualifiers: Altered mental status type: disorientation Qualified Code(s): R41.0 - Disorientation, unspecified Leukocytosis Qualifiers: Leukocytosis type: unspecified Qualified Code(s): D72.829 - Elevated white blood cell count, unspecified Condition: Fair
[2018-04-08 06:21] LABS: PLATELET COUNT 312 10^3/uL (150-400)
[2018-04-08 06:29] LABS: INR 1.94 (0.83-1.16); PROTIME(PATIENT) 22.2 SEC (12.0-15.0)
[2018-04-08] MEDS ORDERED: POTASSIUM CL 20 MEQ PKT PO ONE (06:43)
[2018-04-08] MEDS ORDERED: POTASSIUM Cl (KCl) 100 ML IV ONE ×2 (06:43→09:45)
--- NOTE | 2018-04-08 06:43 | CPEKG ---
Heart Rate: 106 RR Interval: 566 P-R Interval: 148 QRSD Interval: 72 QT Interval: 356 QTC Interval: 473 P Carr: 67 QRS Carr: 90 T Wave Carr: -33 EKG Severity - ABNORMAL ECG - EKG Impression: SINUS TACHYCARDIA EKG Impression: LOW VOLTAGE WITH RIGHT AXIS DEVIATION EKG Impression: NONSPECIFIC T ABNORMALITIES, INFERIOR LEADS Electronically Signed By: Justin Alvarez 09-Apr-2018 14:52:35
[2018-04-08] MEDS ORDERED: OLANZapine DISINTEGR 10 MG TAB PO ONE (07:13)
[2018-04-08] MEDS ORDERED: LORazepam 2 MG/ML INJ IVP ONE (07:18)
[2018-04-08] MEDS ORDERED: AZITHROMYCIN IV 500 MG in NS 250 ML IV SCH (09:00)
[2018-04-08] MEDS ORDERED: AZITHROMYCIN IV 500 MG in NS 250 ML IV ONE (09:30)
[2018-04-08] MEDS ORDERED: PROTOCOL MAGNESIUM 1 DOSE IV PRN (10:45)
[2018-04-08] MEDS ORDERED: PROTOCOL POTASSIUM 1 DOSE MISC PRN (10:45)
[2018-04-08] MEDS ORDERED: ONDANSETRON 4 MG/2 ML VIAL IVP PRN (10:45)
[2018-04-08] MEDS ORDERED: ONDANSETRON DISINTEGRATING 4 MG TAB PO PRN (10:45)
--- NOTE | 2018-04-08 11:00 | ASMTLACE ---
MAURI Acuity / Level of Answers: Yes Care: Did the patient have an inpatient admission? Comorbidities - select Answers: Any tumor (including all that apply lymphoma or leukemia) Chronic pulmonary disease History of falls Opioid dependence / Chronic pain Previous myocardial infarction # of Emergency department Answers: 1-2 visits in the last 6 months Score: 16 Date Signed: 04/08/2018 11:00 AM Electronically Signed By:Sarah Lindsay RN
--- NOTE | 2018-04-08 11:24 | ASMTCMCOM ---
CM Note CM Note Notes: Pt presented to the ED via EMS for AMS from home. Pt lives with her Jono Ariza ([phone]) and he states she became confused yesterday. Pt is disoriented and admitted for AMS, SIRS, severe sepsis, hypokalemia, UTI, possible PNA. Pt has small cell lung cancer and is currently receiving chemo. Pt is followed by Dr Glez at [facility]. Jono states pt has been having falls at home due to pt's weakness r/t chemo treatment, etc. Pt saw her PCP, at [facility] ([phone]), this past Tuesday and they discussed pt getting a walker. Pt does have a cane that she uses at home. Pt has home oxygen provided [employer]. Pt was discharged from [facility] in Oct 2017 w/[facility] RN to monitor her oxygen requirements etc but was discharged from after about a month. Jono states pt doesn't have an Advance Directive, Living Will, or MDPOA. Jono states they do not have any other family in the area other than the pt's brother who lives in [place], but it sounds like they do not stay in close contact. Jono said he was provided contact info for Edgardo Crowell RN Online Producer ([phone]) at [facility], to discuss Palliative Care, but he has not reached out yet. Consider PC consult while pt is in hospital. Exact DC needs unknown. PT/OT/ACCOUNTING MACHINE MECHANIC ordered. CM to follow. Date Signed: 04/08/2018 11:23 AM Electronically Signed By:Sarah Lindsay RN
--- NOTE | 2018-04-08 12:01 | GHP ---
[f rep st] HISTORY AND PHYSICAL DATE OF ADMISSION: 04/08/2018 CHIEF COMPLAINT: Confusion. HISTORY OF PRESENT ILLNESS: The patient is a 62-year-old with a history significant for small cell cancer followed by Dr. Glez. She is undergoing chemotherapy and has just finished her 5th cycle approximately 3 weeks ago. The patient currently is completely confused and sedated, and the is providing the history. Three weeks ago, she received her 5th cycle of chemotherapy. Apparently, she did not tolerate it well and had difficulty eating after this, became somewhat dehydrated, and was quite fatigued. On Tuesday this week, she was her usual self , however, was more lethargic than usual. Since then, Tuesday, Tuesday, she became much more lethargic and started complaining of some dysuria, similar to her previous UTI symptoms and went to see her primary care provider on Tuesday. At that time, she was unable to provide a urine sample, but was treated empirically with Levaquin. she slept most of the day. Her said she was coherent, but almost zombie like. Yesterday she continued to be quite fatigued. As the day wore on, she became more and more confused and last night he said she jumped out of bed. She was confused. She was rambling and talking incoherently. He eventually got her back to bed, and this morning she was quite agitated till she eventually ran outside in her underwear at which point her decided to call 911 and brought her here for further evaluation. The patient is currently quite sedated. She had done some IV Ativan prior to her CT of her head and is unable to provide any type of history. REVIEW OF SYSTEMS: Currently unobtainable. PAST MEDICAL HISTORY: 1. Small cell cancer, left lobe, status post chemotherapy, followed by Dr. Glez. 2. History of carcinoid tumor of the rectum, status post resection and free margins. 3. COPD. Continues to smoke. Has not needed oxygen in the past. 4. Chronic pain with chronic narcotic dependency due to a peripheral neuropathy and back pain. 5. Anemia. 6. Peripheral neuropathy. 7. History of pulmonary embolism on chronic anticoagulation currently with [facility]. 8. History of May-Thurner syndrome. 9. Recurrent UTIs. 10. Coronary artery disease status post PCI to the LAD, 2 stents. 11. History of GE reflux disease. 12. Chronic hepatitis C negative quant in 2013. PAST SURGICAL HISTORY: Includes bilateral tubal ligation, craniotomy secondary to trauma for subdural hematoma, tonsillectomy. FAMILY HISTORY: Reviewed and noncontributory. SOCIAL HISTORY: She is . She does not drink alcohol. She continues to smoke about a pack a day and has so since she was in her childhood. CURRENT MEDICATIONS: Please see med reconciliation. These include atorvastatin , Combivent, hydroxyzine, lidocaine, Lyrica, morphine sulfate Contin 15 mg and oxycodone 30 mg tablets, Coumadin as directed. She is currently on Levaquin for presumed UTI started on Tuesday. ALLERGIES: Include codeine, causes nausea; fentanyl, causes heartburn; Macrobid , causes shortness of breath; and Cipro, causes burning sensation in her feet. PHYSICAL EXAM: VITAL SIGNS: On admission, her heart rate was 109 with a blood pressure of 91/69. This corrected quickly with some IV fluids to a heart rate of 80 with a blood pressure of 120/84. Room air sat was 88%. She does drop down into the 70s since receiving sedation for her CT scan. Currently, she is 100% on 4 L. Afebrile. GENERAL: She is an obtunded 62-year-old woman. She does arouse to pain stimuli. HEENT: Pupils are reactive. Face appears symmetric. NECK: Supple without lymphadenopathy. HEART: Regular. LUNGS: Some occasional rhonchi and no wheezing. Diminished breath sounds. ABDOMEN: Obese, soft. She does grimace when I push on her anterior abdomen, but I feel no masses. EXTREMITIES: Trace edema. Pulses: Distal pulses intact. MUSCULOSKELETAL: No deformities. NEUROLOGIC: She is obtunded, unable to provide any history. She is arousable to pain stimuli. SKIN: Intact. LABORATORY DATA: CBC shows a white count of 15.7, hemoglobin 9 with a platelet count of 312. Chemistry shows a potassium of 2.6, BUN 22 with a creatinine of 1.2. Initial lactic acid was 2.8. Followup is 1.8. Coags show an INR of 1.94. Blood gas shows pCO2 of 42 for venous gas. Urinalysis shows 50-182 white cells, 15-25 red cells. IMAGING DATA: Head CT shows nothing acute. Chest x-ray personally reviewed and discussed with Dr. Gan shows some possible effusion versus scarring in the left base. No obvious pneumonia. Electrocardiogram personally reviewed low voltage sinus tach, nonspecific T-wave abnormalities. ASSESSMENT AND PLAN: 62-year-old woman with a history of small cell carcinoma and a prodrome of urinary tract infection symptoms over the past week, presents with increased confusion, elevated white count and sepsis. Likely source would be urine given her history and symptomatology however with her history of SCCA, she is at risk for meningeal carcinomatosis and may need an MRI and LP if she doesn't improve with antibiotics. 1. Urinary tract infection with sepsis. Had been on Levaquin for 2 days and worsening of her symptoms of confusion. It is unclear if this is from the actual antibiotic Levaquin or a poor response to the infection. Will switch her to ceftriaxone. Follow up on her culture. Continue intravenous fluids and follow her clinically. She has been responding to the chemotherapy per ' s report, so would defer MRI at this time until we treat her acute illness to see if she clears. 2. Hypokalemia, likely nutritional. Patient has had very poor p.o. intake over the last week and longer than that given her chemotherapy. Will replace electrolytes and follow. 3. Likely dehydration from her acute illness. Will hydrate and follow up her mental status. 4. History of chronic obstructive pulmonary disease, currently not requiring oxygen; however, is mildly hypoxic at this time. Will start her on DuoNeb and follow her clinically. 5. Small cell carcinoma, currently not immune compromised. Discussed with Dr. Glez, at risk for brain mets. 6. Anemia, possibly related to chemotherapy and chronic. Will follow. No obvious signs of acute bleeding. 7. History of pulmonary embolus with therapeutic INR. Will hold coumadin for possible need for LP, cover with SQ heparin given low risk in short term for PE as she is over 6 months out. 8. History of gastroesophageal reflux disease. 9. Coronary artery disease status post stent placements remotely. Monitor for signs or symptoms of chest pain. 10. Deep vein thrombosis prophylaxis. on Coumadin for her history of PE in 2016 Patient will likely need greater than 2 midnight stay given her acute illness and multiple comorbidities. /[id number]/MODL MTDD
--- NOTE | 2018-04-08 12:56 | PDMN ---
Medical Necessity Medical necessity: C/M review: est. > 2 MN LOS for eval and TX of acute and persistent urinary tract infection with sepsis, hypokalemia - likely nutritional , likely acute dehydration from patient's illness, increased confusion, elevated WBC requiring ongoing IV Ceftriaxone, IV fluids, electrolyte replacement as needed, Duonebs, pulse oximetry, supplemental O2, acute inpt PT/ OT/ST, comorbid prodrome of urinary tract infection symptoms over the past week treated with Levaquin for two days - unclear if worsening symptoms of confusion is from the antibiotic Levaquin or a poor response to the infection, failed outpatient therapy, history of COPD patient has not needed O2 in the past, , 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
[2018-04-08] MEDS: IPRATROPIUM/ALBUTEROL 3 ML DEYVIAL IH SCH ×3 (13:56→20:46)
[2018-04-08] MEDS ORDERED: ALTEPLASE 2 MG VIAL IVP PRN (14:15)
--- NOTE | 2018-04-08 14:27 | GCON ---
[f rep st] CONSULTATION MEDICAL ONCOLOGY FOLLOWUP CONSULTATION DATE OF CONSULTATION: 04/08/2018 REASON FOR CONSULTATION: Ongoing management of metastatic small cell carcinoma of the lung. RECOMMENDATIONS: 1. Agree with workup and treatment for change of mental status as you are doing. 2. If the patient is not clear her mental status, she will need an MRI of her brain to look for meta static disease in her brain as well as in the meninges. 3. The patient received her last dose of chemotherapy on the March. That was the end of her 5th cycle. She was technically due for next cycle of chemotherapy on March; however, that was not administered secondary to decreasing functional status. Whether we will continue with t hat last planned dose of treatment or not will depend on the workup that ensues during this hospitali zation. 4. I will place her on prophylactic heparin dosing instead of a longer-acting product at this point since she may need a lumbar puncture. ASSESSMENT: This 62-year-old woman was admitted for acute change in mental status. Apparently, she went outside in her underwear today and was brought to the emergency room by her . There, she was found to be alert, but completely disoriented. She is speaking in unintelligible sounds. By hi story, she apparently has been in somewhat of a decline over the past couple of weeks. It is not ayanna ar what the acute event is at this time, but the workup is in progress. The patient was diagnosed with small cell carcinoma of the lung in approximately June of 2017. It took approximately 4 months for the patient to decide to be worked up and treated. She did initiate therapy at the beginning of November 2017. She has actually tolerated treatment fairly well and was t echnically due for re-evaluation in a couple of weeks. If the patient has UROLOGIST MD metastases from her small cell carcinoma of the lung, we will need to evaluate what the most appropriate course of therapy may be. We will follow along with you and assist with decision making as we go forward. PAST MEDICAL HISTORY: Please see assessment. In addition, the patient has a history of secondary po lycythemia, May-Thurner syndrome and pulmonary embolism in approximately May of 2017. Past medical history is also remarkable for herpes zoster and has had post herpetic neuralgia. PAST SURGICAL HISTORY: Remarkable for subdural hematoma drained by Dr. Ramiro Welch. FAMILY HISTORY: Unknown. She is adopted. SOCIAL HISTORY: Remarkable for working previously at [employer]. She has a long smoking history. REVIEW OF SYSTEMS: Unobtainable at this time. PHYSICAL EXAMINATION: GENERAL: Reveals an alert woman who is not able to respond to simple commands , and is talking in gibberish. HEENT: Shows pallor. LUNGS: Reveal diminished breath sounds. CARD IAC: Shows a regular rhythm at this time. ABDOMEN: Shows soft abdomen with adequate bowel sounds. LABORATORY DATA: Her white blood cell count is elevated at 15.73, hemoglobin is low at 9.0, platelet s are 312,000. Her potassium is low at 2.6. Creatinine is 1.2. We will follow along with you during this hospitalization. Thank you very much for allowing us participate in this followup consultation on Audra Bowen. /[id number]/MODL
[2018-04-08] MEDS: LORazepam 2 MG/ML INJ IVP PRN (15:15)
[2018-04-08] MEDS ORDERED: MIDAZOLAM 2 MG/2 ML VIAL ONE (15:29)
[2018-04-08] MEDS ORDERED: MIDAZOLAM 2 MG/2 ML VIAL IVP ONE ×2 (15:45→16:15)
--- NOTE | 2018-04-08 15:50 | PDRADPN ---
Radiology Procedure Note Date of Procedure: 04/08/18 Radiologist: James Griffin Anesthesia: Local (Specify) Pre-op Diagnosis: sepsis Post-op Diagnosis: same Indication: no iv access Procedure: RUE PICC Finding(s): DL 37cm power picc inserted via patent basilic vein. flushes easily. Inf/Abcess present in the surg proc area at time of surgery?: No EBL: Minimal Complications: none
[2018-04-08] MEDS: DEXMEDETOMIDINE HCL 400 MCG in NS 100 ML IV SCH ×2 (16:26→22:07)
[2018-04-08] MEDS: D5W 1/2 NS W/ 20 KCl/L 1,000 ML IV SCH (16:42)
[2018-04-08] MEDS: NICOTINE 21 MG/24 HR PATCH TD SCH (16:42)
--- NOTE | 2018-04-08 18:42 | GCON ---
[f rep st] CONSULTATION PULMONARY CRITICAL CARE CONSULTATION DATE OF CONSULTATION: 04/08/2018 REASON FOR CONSULTATION: COPD, small-cell lung cancer, undergoing chemotherapy, acute delirium. HISTORY: The patient is a 62-year-old who is known to me from the office related to her COPD and squ amous cell carcinoma. She was admitted this morning with confusion and delirium. She was brought to the emergency department after being found by her without clothes, heading out of their hous e. She was agitated, given Versed in transport. In the emergency room, she remained quite confused. Vital signs were essentially normal, with a mild tachycardia. Room air saturation was 88%. She wa s found to have a urinary tract infection. There was no evidence of sepsis. CT scan of the head was unremarkable for any acute pathology. She was felt perhaps to have early sepsis or SIRS despite a n ormal lactate and admitted to the intensive care unit. Antibiotics were initiated. In the intensive care unit, she has been quite confused, agitated, difficult to sedate, and trying to climb out of bed. A PICC line has been placed. She is to be started on Precedex to see if that navid l have a calming effect. PAST MEDICAL HISTORY: Remarkable for previous tobacco abuse, COPD, small cell carcinoma diagnosed in approximately June of 2017. She has recently been on chemotherapy, completing I believe 5 courses . This started in November of this year. She also has a history of polycythemia, May-Thurner syndrom e, pulmonary embolism, and a subdural hematoma in the past. She has chronic pain requiring narcotics , peripheral neuropathy, a history of coronary artery disease with stenting, gastroesophageal reflux, and previously treated hepatitis C. MEDICATIONS: Outpatient medications include Coumadin, morphine sulfate sustained-release b.i.d., p.r .n. oxycodone, Lyrica, hydroxyzine, Protonix, Zofran p.r.n., metoprolol, and Combivent Respimat. She is not on oxygen at home. SOCIAL HISTORY: The patient is . She continues to smoke cigarettes. Alcohol is negative, dr adams negative. She previously worked at [employer] or [employer]. DRUG ALLERGIES: Codeine, ciprofloxacin, nitrofurantoin. FAMILY HISTORY: Unobtainable currently. REVIEW OF SYSTEMS: Unobtainable from the patient. In the few days prior to admission, by report, she was increasingly lethargic and had symptoms of a u rinary tract infection and was empirically started on Levaquin. PHYSICAL EXAMINATION: GENERAL: Reveals an agitated, confused woman who is trying to climb out of be d. She will not answer questions. She does not appear to have pain. VITAL SIGNS: Blood pressure i s 110/70, heart rate 90 with sinus rhythm on the monitor. Oxygen is in place at 2 L with saturations in the mid-90s. Respiratory rate is 18. She is afebrile. HEENT: Remarkable for alopecia. Mucous membranes are dry. There are no obvious lesions. There is no lymphadenopathy or thyromegaly. Jugu lar venous distention is difficult to assess. Secondary to the agitation, it is difficult to assess whether the patient may or may not have a stiff neck. CHEST: Clear anteriorly. Breath sounds are d iminished at the bases. There are some rales at the left base, no obvious rhonchi, no significant wh eezes. Expiratory phase does appear to be prolonged. HEART: Regular in rate and rhythm with a soft systolic murmur, no gallop. P2 may be mildly increased. ABDOMEN: Soft and not apparently tender. Bowel sounds are present, somewhat diminished. GENITOURINARY: No Menendez catheter is in place. She has been using the bedpan. EXTREMITIES: Remarkable for 1+ edema. NEUROLOGIC: Nonfocal. She has e xcellent strength and moves all extremities with her restlessness normally and equally. PSYCHIATRIC: She is confused, agitated, and will not respond to commands or questions. DATABASE: CT scan of the head is within normal limits. Initial chest x-ray showed some linear atele ctasis at the left base. This is in the area where her previous large small-cell carcinoma was. Thi s has significantly improved with treatment. The left diaphragm is somewhat high. A small effusion versus pleural reaction cannot be excluded. There is no obvious area of consolidation and changes do not necessarily suggest pneumonia. LABORATORY: White blood cell count is 15,000, hematocrit 26, platelets 312,000. There is a shift to the left. INR on admission on Coumadin was 1.94. Arterial blood gas drawn this morning in the [facility] department was venous, showing a pH of 7.57, a pCO2 of 42, and a PO2 of 23? Base excess was el evated. Sodium is 140 with a potassium of 2.6. CO2 is 39 with a negative anion gap. BUN 22 with a creatinine of 1.2. Initial lactate was 2.8 with followup lactate of 1.8. TSH was somewhat low as we re magnesium and calcium. Urinalysis showed red cells and white cells. Protein was positive as was leukocyte esterase. ASSESSMENT: 1. Altered mental status/acute delirium. The cause for this is not totally explained. It could be related to acute urinary tract infection with early sepsis. She has been on Levaquin for several day s and now has been started on ceftriaxone. Urine culture is pending. CT scan of the head was unrema rkable. Her narcotic use at home may be contributing to her abnormal mental status. However, she is not significantly lethargic at this time. Pneumonia with early sepsis cannot be excluded. However, her x-ray is most suggestive of residual changes from her large small-cell carcinoma at the left bas e. Other etiologies such as encephalitis or meningitis cannot be excluded at this time but would merlin ear to be less likely. 2. History of small-cell carcinoma of the lung. She has completed 5 rounds of chemotherapy, with ap parent good response regarding her primary tumor. 3. Chronic obstructive pulmonary disease. This is secondary to a long history of tobacco abuse. Jeramy gomez continues to smoke and has no interest in quitting. Blood gas is difficult to interpret. She has been started on DuoNeb's. 4. History of multiple medical problems as outlined above including previous pulmonary embolism, sara oing anticoagulation, gastroesophageal reflux, coronary artery disease, et cetera. These other probl ems appeared to be stable. 5. Metabolic: Hypokalemia. PLAN/RECOMMENDATIONS: The patient will be kept in the intensive care unit. She will be started on P recedex. Hopefully this will have a calming affect without suppressing respirations significantly. Neurologic status will be followed closely. Current antibiotics will be continued. An arterial bloo d gas will be requested. An ammonia level will also be drawn. DuoNeb's will be continued. A PICC l ine is in the process of being placed. Potassium will be repleted. Coumadin will be held for now an d the INR allowed to drift down. Subcu heparin: 10,000 t.i.d. might be a good choice for ongoing an ticoagulation. Laboratory, urine culture and sensitivities will be awaited, however, this may be neg ative in light of her recent Levaquin. Lumbar puncture will need to be considered if her mental stat us continues to be abnormal. Intravenous fluids will be given. She should be kept n.p.o. at this ti me secondary to the risk of possible aspiration. Ice chips and small sips can be given. Further plans and recommendations will be made based on her progress over the next 12-24 hours. /[id number]/MODL
[2018-04-08] MEDS: HEPARIN 5,000 UNIT/0.5 ML INJ SC SCH (18:53)
[2018-04-08] MEDS: POTASSIUM Cl (KCl) 50 ML IV SCH ×2 (19:23→20:01)
[2018-04-08] MEDS ORDERED: OLANZapine 5 MG TAB PO ONE (20:17)
[2018-04-08] MEDS ORDERED: WARFARIN SODIUM 2.5 MG TAB PO SCH (21:00)
[2018-04-08] MEDS ORDERED: MAGNESIUM SULF 1 GM/DEXTROSE 100 ML IV ONE (23:11)
[2018-04-09] MEDS: HEPARIN 5,000 UNIT/0.5 ML INJ SC SCH (00:08)
[2018-04-09] MEDS: D5W 1/2 NS W/ 20 KCl/L 1,000 ML IV SCH (00:12)
[2018-04-09] MEDS: DEXMEDETOMIDINE HCL 400 MCG in NS 100 ML IV SCH ×3 (01:44→15:31)
[2018-04-09] MEDS: HYDROmorphone HCL/NS 0.5 MG/ML SYR IVP PRN ×2 (03:36→18:16)
[2018-04-09 04:42] LABS: INR 1.69 (0.83-1.16)
[2018-04-09] MEDS: IPRATROPIUM/ALBUTEROL 3 ML DEYVIAL IH SCH ×4 (04:56→18:11)
[2018-04-09 04:58] LABS: PLATELET COUNT 202 10^3/uL (150-400)
[2018-04-09] MEDS: LORazepam 2 MG/ML INJ IVP PRN ×3 (06:01→15:29)
[2018-04-09] MEDS: POTASSIUM Cl (KCl) 50 ML IV SCH ×3 (06:39→09:17)
[2018-04-09] MEDS ORDERED: ENOXAPARIN 40 MG/0.4 ML SYR SC SCH (09:00)
[2018-04-09] MEDS ORDERED: ALBUTEROL 3 ML DEYVIAL IH PRN (09:51)
[2018-04-09] MEDS ORDERED: FUROSEMIDE 40 MG/4 ML VIAL IVP ONE (09:52)
[2018-04-09] MEDS: METOPROLOL TARTRATE 25 MG TAB PO SCH (10:34)
[2018-04-09] MEDS: PANTOPRAZOLE SODIUM 40 MG TAB PO SCH (10:34)
--- NOTE | 2018-04-09 10:38 | HOSPPROG ---
Hospitalist Progress Note Assessment/Plan: 62-year-old woman with a history significant for small cell carcinoma recently treated with chemotherapy and followed by Dr. Glez. She comes in with increasing confusion. She did have evidence of a possible UTI on admission however has not improved and in fact has worsened despite antibiotics and IV fluids. # encephalopathy, unclear etiology. Acute infection seems less likely now that she is not improved with treatment. And worried that she could potentially have metastatic disease in her brain or spinal fluid causing altered mental status. * Continue treatment for infection * Check MRI with and without contrast * Consider LP, hold anticoagulants at this time * Requiring Precedex and Ativan for sedation given her significant agitation # UTI Pt not responding yet to antibiotics, will continue and await cultures # COPD with acute respiratory exacerbation. * Add steroids and continue nebulizers * Chest x-ray looks fluid long will add Lasix # anemia, slight drop in hemoglobin likely related to IV fluid. * No obvious acute bleeding * At Lasix and follow # bipolar disease, patient unable to tolerate her medications at this time. Hopefully when her mental status clears we can resume her usual medications. # history of pulmonary embolism in May 2017. Given patient's anemia and likely procedure will hold anticoagulation for now. She is over 6 months of treatment currently # coronary artery disease status post stent. Continue tele Subjective: Discussed in multi-disciplinary rounds. Patient quite confused Objective: Vital Signs Temp Pulse Resp BP Pulse Ox 36.3 C 66 24 H 100/75 100 04/09/18 04:00 04/09/18 10:04 04/09/18 10:04 04/09/18 08:00 04/09/18 10:04 Laboratory Results 04/09/18 04:20 04/09/18 04:20 04/08/18 04/09/18 04/10/18 05:59 05:59 05:59 Intake Total 1739 Balance 1739 PT 20.0 SEC (12.0-15.0) H 04/09/18 04:20 INR 1.69 (0.83-1.16) H 04/09/18 04:20 - Physical Exam Constitutional: unkempt Eyes: PERRL Ears, Nose, Mouth, Throat: moist mucous membranes Cardiovascular: regular rate and rhythym Respiratory: expiratory wheeze, bronchial breath sounds Gastrointestinal: soft, non-tender abdomen Genitourinary: no bladder fullness Skin: warm Musculoskeletal: abnormal gait Neurologic: No AAOx3, No facial droop Psychiatric: encephalopathic ICD10 Worksheet Patient Problems: Problems Problem Status Onset Altered mental status Acute Hypokalemia Acute Leukocytosis Acute Severe sepsis Acute Small cell lung cancer Acute Tachycardia Acute Urinary tract infection Acute Chronic obstructive pulmonary disease with acute exacerbation Acute Coronary artery disease Acute Influenza A Acute NSTEMI (non-ST elevated myocardial infarction) Acute Pneumonia Acute Pulmonary embolism Acute
--- NOTE | 2018-04-09 11:39 | PDINTPN ---
[employer] Progress Note Assessment/Plan: Assessment: Altered mental status. Consistent with acute delirium. Cause is unknown. May be related to infection/UTI. CT head negative. Doubt meningitis but a carcinomatosis etiology cannot be excluded at this time nor can subtle metastatic disease. Other factors including home medications, underlying neuro and psychiatric status, etc are all likely involved. She is requiring Precedex and intermittent Ativan. She was on narcotics at home. UTI: On ceftriaxone. She was on Levaquin for 2 days prior to admission. Cultures not growing. COPD, ongoing tobacco abuse. Increased wheezing today. Oxygen requirements only at 2 L. Not tight, but would appear to have a mild exacerbation. Will add steroids, increase nebulize treatments. Congestive heart failure. BNP is significantly elevated. This may be more right heart? Has had no recent echo, will order. History of small cell lung cancer. Has been on treatment for this for the last 5 months, receiving chemotherapy. Her tumor mass in the left lower lobe has responded nicely. Followed by Oncology. History of previous pulmonary embolism. On long-term anticoagulation. On heparin 10,000 units three times daily. Coumadin on hold. Anemia: Hematocrit 22 today, without evidence of active ongoing bleeding. Will follow. GI prophylaxis: On pantoprazole. Metabolic: No issues currently identified. History of multiple medical problems as outlined previously, stable. Plan: Continue care in the intensive care unit. Decreased Precedex and Ativan as possible. Continue antibiotics. At steroids, increase inhaled therapies. Lasix diuresis. Check echo. Continue anticoagulation. Follow hematocrit, may need blood if H/H continues to drop. Follow lab, chest x-ray. For MRI of the brain. May need lumbar puncture tomorrow looking for carcinomatosis meningitis. 35 min of critical care time spent directly with the patient. Discussed with hospitalist, nursing, and the ICU multi disciplinary team. Subjective: Sedated with propofol and Ativan secondary to agitation and confusion. Objective: Vital Signs Temp Pulse Resp BP Pulse Ox 36.3 C 66 24 H 100/75 100 04/09/18 04:00 04/09/18 10:04 04/09/18 10:04 04/09/18 08:00 04/09/18 10:04 Laboratory Results 04/09/18 04:20 04/09/18 04:20 04/08/18 04/09/18 04/10/18 05:59 05:59 05:59 Intake Total 1739 Balance 1739 PT 20.0 SEC (12.0-15.0) H 04/09/18 04:20 INR 1.69 (0.83-1.16) H 04/09/18 04:20 Laboratory Tests 04/09/18 04/09/18 04/09/18 04:20 04:20 10:30 PT 20.0 H INR 1.69 H Calcium 6.7 L Magnesium 1.9 AST 20 ALT 25 NT-Pro-B Natriuret Pep 38326 H Albumin 2.1 L XR: Increased markings bilaterally consistent with volume overload/congestive heart failure. No focal infiltrates, small effusions. Physical Exam - Physical Exam General Appearance: no apparent distress, obese, other (Somnolent secondary to sedation), No alert EENT: PERRL/EOMI, other (Nasal cannula at 2 L) Neck: normal inspection (No obvious JVD) Respiratory: decreased breath sounds, rales (Few rales at bases), wheezing ( Scattered wheezes inspiratory and expiratory, not tight), No respiratory distress Cardiac/Chest: regular rate, rhythm Abdomen: non-tender (No obvious tenderness), soft, No normal bowel sounds ( Present, somewhat decreased) Pelvic Exam: other (Has been incontinent) Skin: warm/dry, pallor Extremities: pedal edema (Trace +) Neuro/Psych: no motor/sensory deficits, cognition abnormalities (Sedated, confused, restless) ICD10 Worksheet Patient Problems: Problems Problem Status Onset Altered mental status Acute Hypokalemia Acute Leukocytosis Acute Severe sepsis Acute Small cell lung cancer Acute Tachycardia Acute Urinary tract infection Acute Chronic obstructive pulmonary disease with acute exacerbation Acute Coronary artery disease Acute Influenza A Acute NSTEMI (non-ST elevated myocardial infarction) Acute Pneumonia Acute Pulmonary embolism Acute
[2018-04-09] MEDS: NICOTINE 21 MG/24 HR PATCH TD SCH (11:55)
[2018-04-09] MEDS ORDERED: GADOBUTROL 10 ML VIAL IVP ONE (13:17)
[2018-04-09] MEDS: methylPREDNISolone SOD SUCC 40 MG/ML VIAL IVP SCH ×2 (15:28→21:48)
--- NOTE | 2018-04-09 15:34 | SOAPPROG ---
SOAP Progress Note Assessment/Plan: Assessment: - change in mental status - not resolved - results of MRI are pending. She will probably need an LP tomorrow. - fluid overload - lasix - small cell ca lung - s/p 5 cycles of chemo. Plan: - ICU care as you are doing - check MRI - check LP Subjective: still obtunded Objective: Vital Signs Temp Pulse Resp BP Pulse Ox 36.3 C 66 24 H 100/75 100 04/09/18 04:00 04/09/18 10:04 04/09/18 10:04 04/09/18 08:00 04/09/18 10:04 Laboratory Results 04/09/18 04:20 04/09/18 04:20 04/07/18 04/08/18 04/09/18 23:59 23:59 23:59 Intake Total 1739 Balance 1739 PT 20.0 SEC (12.0-15.0) H 04/09/18 04:20 INR 1.69 (0.83-1.16) H 04/09/18 04:20 Physical Exam - Physical Exam General Appearance: obtunded Respiratory: rales (bilat) Abdomen: normal bowel sounds Skin: pallor Neuro/Psych: disoriented to person, disoriented to place, disoriented to time ICD10 Worksheet Patient Problems: Problems Problem Status Onset Altered mental status Acute Hypokalemia Acute Leukocytosis Acute Severe sepsis Acute Small cell lung cancer Acute Tachycardia Acute Urinary tract infection Acute Chronic obstructive pulmonary disease with acute exacerbation Acute Coronary artery disease Acute Influenza A Acute NSTEMI (non-ST elevated myocardial infarction) Acute Pneumonia Acute Pulmonary embolism Acute
[2018-04-09] MEDS ORDERED: POTASSIUM Cl (KCl) 50 ML IV ONE (16:26)
[2018-04-09] MEDS ORDERED: LORazepam 2 MG/ML INJ IVP ONE (16:34)
[2018-04-09] MEDS: METOPROLOL TARTRATE 5 MG/5 ML INJ IVP SCH (17:59)
[2018-04-10] MEDS: METOPROLOL TARTRATE 5 MG/5 ML INJ IVP SCH ×5 (00:05→22:24)
[2018-04-10] MEDS: DEXMEDETOMIDINE HCL 400 MCG in NS 100 ML IV SCH ×3 (02:50→15:56)
[2018-04-10] MEDS: IPRATROPIUM/ALBUTEROL 3 ML DEYVIAL IH SCH (04:58)
[2018-04-10 05:12] LABS: INR 1.53 (0.83-1.16); PROTIME(PATIENT) 18.5 SEC (12.0-15.0)
[2018-04-10] MEDS: methylPREDNISolone SOD SUCC 40 MG/ML VIAL IVP SCH ×3 (05:32→22:47)
[2018-04-10] MEDS ORDERED: PANTOPRAZOLE SODIUM 40 MG VIAL IVP ONE (09:14)
[2018-04-10] MEDS ORDERED: MAGNESIUM SULF 1 GM/DEXTROSE 100 ML IV ONE (09:33)
[2018-04-10] MEDS: NICOTINE 21 MG/24 HR PATCH TD SCH (09:34)
[2018-04-10] MEDS: METOPROLOL TARTRATE 25 MG TAB PO SCH (09:42)
--- NOTE | 2018-04-10 09:43 | HOSPPROG ---
Hospitalist Progress Note Assessment/Plan: 62-year-old woman with a history significant for small cell carcinoma recently treated with chemotherapy and followed by Dr. Glez. She comes in with increasing confusion. She did have evidence of a possible UTI on admission however has not improved and in fact has worsened despite antibiotics and IV fluids. This morning she had a large melenic stool associated with increased heartrate. # GI bleed, resumed upper. Discussed with GI * start PPI, NPO * all anticoagulation on hold * transfuse. # encephalopathy, unclear etiology. Acute infection seems less likely now that she is not improved with treatment. And worried that she could potentially have metastatic disease in her brain or spinal fluid causing altered mental status. * Continue treatment for infection * MRI: reviewed with radiology. * LP when clinically stable. * Requiring Precedex and Ativan for sedation given her significant agitation # UTI Pt not responding yet to antibiotics, will continue and await cultures # COPD with acute respiratory exacerbation. * Add steroids and continue nebulizers * Chest x-ray looks fluid long will add Lasix # anemia, slight drop in hemoglobin likely related to IV fluid. * No obvious acute bleeding * At Lasix and follow # bipolar disease, patient unable to tolerate her medications at this time. Hopefully when her mental status clears we can resume her usual medications. # history of pulmonary embolism in May 2017. Given patient's anemia and likely procedure will hold anticoagulation for now. She is over 6 months of treatment currently # coronary artery disease status post stent. Continue tele 35 minutes critical care time with patient with melena, hypotension and anemia Subjective: Pt confused Objective: Vital Signs Temp Pulse Resp BP Pulse Ox 36.4 C 92 26 H 95/63 L 94 04/10/18 04:00 04/10/18 06:00 04/10/18 06:00 04/10/18 06:00 04/10/18 06:00 Laboratory Results 04/10/18 04:45 04/10/18 04:45 04/09/18 04/10/18 04/11/18 05:59 05:59 05:59 Intake Total 1739 1180 Output Total 1700 Balance 1739 -520 PT 18.5 SEC (12.0-15.0) H 04/10/18 04:45 INR 1.53 (0.83-1.16) H 04/10/18 04:45 - Physical Exam Constitutional: obese, uncomfortable Eyes: PERRL Ears, Nose, Mouth, Throat: ears appear normal Cardiovascular: No regular rate and rhythym (tacy) Respiratory: no respiratory distress, clear to auscultation, reduced air movement (bases) Gastrointestinal: no palpable masses, other (positve BS) Genitourinary: winters in urethra Skin: No normal color (pale) Musculoskeletal: generalized weakness Neurologic: No facial droop Psychiatric: encephalopathic ICD10 Worksheet Patient Problems: Problems Problem Status Onset NSTEMI (non-ST elevated myocardial infarction) Acute Coronary artery disease Acute Pulmonary embolism Acute Chronic obstructive pulmonary disease with acute exacerbation Acute Pneumonia Acute Influenza A Acute Altered mental status Acute Small cell lung cancer Acute Tachycardia Acute Leukocytosis Acute Hypokalemia Acute Urinary tract infection Acute Severe sepsis Acute
[2018-04-10] MEDS ORDERED: EPINEPHrine 1 MG/10 ML SYR IVP ONE (09:50)
[2018-04-10] MEDS: PANTOPRAZOLE SODIUM 40 MG VIAL IVP SCH ×3 (10:00→21:16)
[2018-04-10] MEDS ORDERED: PROPOFOL/EMULSION 500 MG/50 ML BOTTLE IV ONE (10:28)
[2018-04-10] MEDS ORDERED: VASOPRESSIN 20 UNIT/ML VIAL ONE (10:28)
[2018-04-10] MEDS: PANTOPRAZOLE SODIUM 40 MG TAB PO SCH (10:48)
[2018-04-10] MEDS ORDERED: ONDANSETRON 4 MG/2 ML VIAL IVP PRN (11:28)
[2018-04-10] MEDS ORDERED: NALOXONE HCL 0.4 MG/ML INJ IVP PRN (11:28)
--- NOTE | 2018-04-10 11:31 | PDANEPAE ---
ANE History of Present Illness eMERGENT edg FOR gI bLEED WIOTH hct DROP ANE Past Medical History - Cardiovascular History Hx Hypertension: Yes Hx Arrhythmias: No Hx Chest Pain: Yes Hx Coronary Artery / Peripheral Vascular Disease: Yes Hx CHF / Valvular Disease: No Hx Palpitations: No Cardiovascular History Comment: NSTEMI, stents placed 10/20 - Pulmonary History Hx COPD: Yes Hx Asthma/Reactive Airway Disease: Yes Hx Recent Upper Respiratory Infection: No Hx Oxygen in Use at Home: Yes O2 in Use at Home (L/minute): 3 Hx Sleep Apnea: No Pulmonary History Comment: Hx of PE. lung ca - Neurologic History Hx Cerebrovascular Accident: No Hx Seizures: No Hx Dementia: No Neurologic History Comment: Hx of peripheral neuropathy - Endocrine History Hx Diabetes: No - Renal History Hx Renal Disorders: No - Liver History Hx Hepatic Disorders: No - Neurological & Psychiatric Hx Hx Neurological and Psychiatric Disorders: No Neurological / Psychiatric History Comment: Hx of anxiety - Cancer History Hx Cancer: Yes Cancer History Comment: Rectal ca, lung ca - Congenital Disorder History Hx Congenital Disorders: No - GI History Hx Gastrointestinal Disorders: Yes Gastrointestinal History Comment: GERD - Other Health History Other Health History: Chronic pain - Chronic Pain History Chronic Pain: Yes (lower back) - Surgical History Prior Surgeries: Lung biopsy 05/23, colonoscopy, rlex sig w/ resection, cholecystectomy ANE Review of Systems Review of Systems: ANE Patient History - Allergies Allergies/Adverse Reactions: nitrofurantoin macrocrystalline [From Macrobid] Allergy (Severe, Verified 06:12) Swelling/neck,face,throat nitrofurantoin Allergy (Unknown, Verified 04/08/18 06:12) Swelling/neck,face,throat ciprofloxacin Allergy (Verified 04/08/18 06:12) "BURNING SENSATION IN MY FEET" codeine Allergy (Verified 04/08/18 06:12) Vomiting nitrofurantoin macrocrystalline Allergy (Unknown, Uncoded 04/08/18 06:12) Swelling/neck,face,throat - Home Medications Home Medications: Ondansetron HCl [Zofran] 4 mg PO Q6 PRN 02/16/16 [Last Taken 01/27/18] Pantoprazole Sodium [Protonix 40mg (*)] 40 mg PO DAILY 02/16/16 [Last Taken ] oxyCODONE IR [Oxycodone Ir (*)] 30 mg PO TID PRN 02/16/16 [Last Taken 01/27/18] Metoprolol Tartrate [Lopressor 25 mg (*)] 25 mg PO DAILY 05/09/17 [Last Taken ] Warfarin Sodium [Coumadin 2.5MG (*)] 2.5 mg PO SUTUTHSA@21 09/16/17 [Last Taken 04/06/18] morphINE SR [Ms Contin/Oramorph 15 mg (*)] 15 mg PO BID 09/19/17 [Last Taken ] Acetaminophen [Tylenol 325mg (*)] 325 mg PO TID PRN 10/20/17 [Last Taken ] Pregabalin [Lyrica 75mg (*)] 75 mg PO BID 10/20/17 [Last Taken 01/26/18] Warfarin Sodium [Coumadin 5MG (*)] 5 mg PO MWF 10/20/17 [Last Taken 04/07/18] hydrOXYzine HCL [hydrOXYzine HCL (RX)] 25 mg PO HS 10/20/17 [Last Taken 01/26/18 ] - Smoking Hx Smoking Status: Light smoker - Family Anes Hx Family Hx Anesthesia Complications: None ANE Labs/Vital Signs - Labs Result Diagrams: 04/10/18 Unknown 04/10/18 04:45 - Vital Signs Blood Pressure: 93/53 Heart Rate: 104 Respiratory Rate: 31 O2 Sat (%): 95 Height: 177.8 cm Weight: 68.5 kg ANE Physical Exam - Airway Neck exam: FROM Mallampati Score: Class 2 Mouth exam: dentures - Pulmonary Pulmonary: clear to auscultation - Cardiovascular Cardiovascular: tachycardia - ASA Status ASA Status: III, E ANE Anesthesia Plan Anesthesia Plan: GA with mask Urgent/Emergent Case: Marlena workman completed preop but documented later for safe timely pt care
--- NOTE | 2018-04-10 11:32 | POSTANESTH ---
Post Anesthetic Evaluation Cardiovascular Status: Tx Hyper/Hypo-tension Respiratory Status: Similar to Pre-op Cond. Level of Consciousness/Mental Status: Mildly Sleepy, Arousable Pain Control: Adequate, Prn Tx Ordered Nausea/Vomiting Control: Adequate, Prn Tx Ordered Complications Possibly Related to Anesthesia: None Noted
--- NOTE | 2018-04-10 11:59 | GIREPORT ---
Replaced By [facility] - Endoscopy Department Patient Name: Audra Bowen Procedure Date: 04/10/2018 9:51 AM Patient Type: Inpatient Attending MD/ ER Physician: Guilherme Merino MD Procedure: Upper GI endoscopy Indications: Acute post hemorrhagic anemia, Melena Providers: Guilherme Merino MD Medicines: General Anesthesia Complications: No immediate complications. Description of Procedure: After obtaining informed consent, the endoscope was passed under direct vision. Throughout the procedure, the patient's blood pressure, pulse, and oxygen saturations were monitored continuously. The Endoscope was intro duced through the mouth, and advanced to the second part of duodenum. [facility] er GI endoscopy was accomplished without difficulty. The patient tolerated th e procedure well. Moderate Sedation: GA Findings: One benign-appearing, intrinsic stenosis was found 36 cm from the incis ors. This stenosis was mildly severe and. The stenosis was traversed. One superficial esophageal ulcer with no bleeding and stigmata of recen t bleeding was found 36 cm from the incisors. ? Stigmata, ? vessel. Area was successfully injected with 4 mL of a 1:10,000 solution of epinephrine f or hemostasis. A small hiatal hernia was present. Diffuse mild inflammation characterized by congestion (edema), erosions and erythema was found in the gastric antrum. The examined duodenum was normal. Estimated Blood Loss: Estimated blood loss: none. Post Op Diagnosis: - Benign-appearing esophageal stenosis. - Non-bleeding esophageal ulcer. Injected. - Small hiatal hernia. - Chronic gastritis. - No blood seen in th upper GI tract - Normal examined duodenum. - No specimens collected. Recommendation: - NPO. - Give Protonix (pantoprazole): initiate therapy with 80 mg IV bolus, t hen 8 mg/hr IV by continuous infusion. - Serial H and H - Monitor for acute signs of GI bleeding. - Thank you for allowing me to participate in the care of your patient. Attending Participation: I personally performed the entire procedure. Guilherme Merino MD Guilherme Merino MD 04/10/2018 11:58:49 AM This report has been signed electronicallyStlorenza Merino MD Number of Addenda: 0 Note Initiated On: 04/10/2018 9:51 AM [email or web address]
--- NOTE | 2018-04-10 12:12 | SOAPPROG ---
SOAP Progress Note Assessment/Plan: Assessment: - change in mental status - not resolved - results of MRI reviewed,small petechial hemorrhage r parietal. - fluid overload - lasix - small cell ca lung - s/p 5 cycles of chemo. -Gi bleed, esophageal ulcer noted on UGI endo, being transfused Plan: - ICU care as you are doing - follow hct - may need LP when a bit more stable 04/10/18 12:06 Subjective: Non verbal Objective: Vital Signs Temp Pulse Resp BP Pulse Ox 98.2 F 104 H 31 H 93/53 L 95 04/10/18 10:32 04/10/18 11:31 04/10/18 11:31 04/10/18 11:31 04/10/18 11:31 Laboratory Results 04/10/18 Unknown 04/10/18 04:45 04/09/18 04/10/18 04/11/18 05:59 05:59 05:59 Intake Total 1739 1180 Output Total 1700 Balance 1739 -520 PT 18.5 SEC (12.0-15.0) H 04/10/18 04:45 INR 1.53 (0.83-1.16) H 04/10/18 04:45 ICD10 Worksheet Patient Problems: Problems Problem Status Onset Altered mental status Acute Hypokalemia Acute Leukocytosis Acute Severe sepsis Acute Small cell lung cancer Acute Tachycardia Acute Urinary tract infection Acute Chronic obstructive pulmonary disease with acute exacerbation Acute Coronary artery disease Acute Influenza A Acute NSTEMI (non-ST elevated myocardial infarction) Acute Pneumonia Acute Pulmonary embolism Acute
--- NOTE | 2018-04-10 12:13 | PDINTPN ---
Financial Services Assistant Progress Note Assessment/Plan: Assessment/plan: * Altered mental status. Consistent with acute delirium. Cause is unknown. May be related to infection/UTI. CT head negative. Doubt meningitis but a carcinomatosis etiology cannot be excluded at this time nor can subtle metastatic disease. Other factors including home medications, underlying neuro and psychiatric status, etc are all likely involved. She is requiring Precedex and intermittent Ativan. She was on narcotics at home. Slow to improve * UTI: On ceftriaxone. She was on Levaquin for 2 days prior to admission. Cultures not growing. * GI bleed-upper endoscopy was negative. Likely lower GI source * Acute blood-loss anemia-status post transfusion -will follow H&H closely * COPD, ongoing tobacco abuse. Increased wheezing today. Oxygen requirements only at 2 L. Not tight, but would appear to have a mild exacerbation. Will add steroids, increase nebulize treatments. * Congestive heart failure. BNP is significantly elevated. This may be more right heart? Has had no recent echo, will order. * History of small cell lung cancer. Has been on treatment for this for the last 5 months, receiving chemotherapy. Her tumor mass in the left lower lobe has responded nicely. Followed by Oncology. * History of previous pulmonary embolism. On long-term anticoagulation. On heparin 10,000 units three times daily. Coumadin on hold. * Anemia: Hematocrit 22 today, without evidence of active ongoing bleeding. Will follow. * GI prophylaxis: On pantoprazole. * Metabolic: No issues currently identified. * History of multiple medical problems as outlined previously, stable. Subjective: Eyes open but unresponsive. Somewhat agitated. Objective: Vital Signs Temp Pulse Resp BP Pulse Ox 36.8 C 104 H 31 H 93/53 L 95 04/10/18 10:32 04/10/18 11:31 04/10/18 11:31 04/10/18 11:31 04/10/18 11:31 Laboratory Results 04/10/18 Unknown 04/10/18 04:45 04/09/18 04/10/18 04/11/18 05:59 05:59 05:59 Intake Total 1739 1180 Output Total 1700 Balance 1739 -520 PT 18.5 SEC (12.0-15.0) H 04/10/18 04:45 INR 1.53 (0.83-1.16) H 04/10/18 04:45 - Time Spent With Patient Time Spent With Patient: 25 min of time spent with patient, over 1/2 involved with coordination of care counseling. Case discussed with nursing Physical Exam - Physical Exam General Appearance: other (Awake), No alert EENT: PERRL/EOMI, normal ENT inspection Neck: non-tender Respiratory: prolonged expiration, No wheezing Cardiac/Chest: normal peripheral pulses, regular rate, rhythm, systolic murmur Peripheral Pulses: 2+: carotid (R), carotid (L), femoral (R), femoral (L), dorsalis-pedis (R), dorsalis-pedis (L) Abdomen: normal bowel sounds, non-tender, soft Pelvic Exam: deferred Rectal: deferred Skin: normal color, warm/dry Extremities: normal range of motion, non-tender, normal inspection, normal capillary refill Neuro/Psych: No alert ICD10 Worksheet Patient Problems: Problems Problem Status Onset Altered mental status Acute Hypokalemia Acute Leukocytosis Acute Severe sepsis Acute Small cell lung cancer Acute Tachycardia Acute Urinary tract infection Acute Chronic obstructive pulmonary disease with acute exacerbation Acute Coronary artery disease Acute Influenza A Acute NSTEMI (non-ST elevated myocardial infarction) Acute Pneumonia Acute Pulmonary embolism Acute
--- NOTE | 2018-04-10 12:22 | GCON ---
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 HISTORY OF PRESENT ILLNESS: I have been asked to see this patient in consultation from Dr. Richelle mcintosh, for acute GI bleed. The patient has a history of metastatic small-cell cancer. She was admitte d with mental status changes. She was alert but very disoriented. She was not able to speak intelli gently. She has been in decline over the last several months. She was diagnosed with small cell car cinoma in June 2017. Four months after diagnosis, she did undergo treatment with chemotherapy. Jeramy gomez was admitted to the ICU. She was noted to have a drop in hematocrit today with melenic stool. She became hypotensive. Had a rapid blood transfusion and was placed on pressors. Asked to see patient for further evaluation. She has no prior history of GI bleeding. PAST MEDICAL HISTORY: Remarkable for small-cell carcinoma of the left lung status post chemotherapy, followed by Dr. Glez. 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 Chronic pain, chronic narcotic dependency, peripheral neuropathy, anemia, history of pulm onary embolism on chronic anticoagulation, history of May-Thurner syndrome, history of recurrent UTIs , coronary artery disease status post. LAD stent, history of gastroesophageal reflux disease and chr onic hepatitis C. History negative for quantitative rRNA in 2013. It is unclear whether patient had previous treatment. PAST SURGICAL HISTORY: Remarkable for bilateral tubal ligation, craniotomy secondary to trauma from subdural hematoma, tonsillectomy. FAMILY HISTORY: Negative as it pertains to chief complaint. SOCIAL HISTORY: She is . Not a drinker. Does smoke a pack of cigarettes a day. MEDICATIONS: Combivent, hydroxyzine, lidocaine, Lyrica, MS Contin, oxycodone, Coumadin, recent Levaq uin for UTI. ALLERGIES: Include codeine, which causes nausea, Macrobid, and Cipro. REVIEW OF SYSTEMS: Unobtainable. PHYSICAL EXAM: GENERAL: The patient is obtunded, lying in bed. HEENT: She has alopecia. No evide nce of trauma. Normocephalic. NECK: Supple. No cervical adenopathy. No thyromegaly. RESPIRATORY : Lungs are clear. CARDIAC: S1, S2. ABDOMEN: Benign, soft. EXTREMITIES: Unremarkable without cl ubbing, cyanosis, edema. SKIN: Warm, dry, intact. NEURO: Patient is unresponsive, comatose. PSYC H: Unable to evaluate. LABORATORY DATA: Hematocrit 21.8, hemoglobin 7.28. PTT 18.5, INR of 1.53. Serum sodium 140, potass ium 4.4, chloride of 105, CO2 of 31, BUN of 15. IMPRESSION: A 62-year-old obtunded woman with metastatic small-cell carcinoma with mental status gabriel nges. Patient with acute gastrointestinal bleed, presumed upper. We will proceed with emergent uppe r endoscopy. The patient is placed n.p.o., placed on a continuous IV Protonix drip. RECOMMENDATIONS: 1. Emergent EGD. 2. IV Protonix with continuous drip. 3. Serial H and H. 4. Transfuse packed red blood cells. /[id number]/MODL
[2018-04-10] MEDS: HYDROmorphone HCL/NS 0.5 MG/ML SYR IVP PRN (12:34)
[2018-04-10] MEDS: LORazepam 2 MG/ML INJ IVP PRN (15:51)
[2018-04-10] MEDS ORDERED: FUROSEMIDE 40 MG/4 ML VIAL IVP ONE (19:00)
[2018-04-10] MEDS ORDERED: WARFARIN SODIUM 5 MG TAB PO SCH (21:00)
[2018-04-11] MEDS: PANTOPRAZOLE SODIUM 40 MG VIAL IVP SCH ×4 (03:33→20:20)
[2018-04-11] MEDS ORDERED: POTASSIUM Cl (KCl) 50 ML IV ONE (03:38)
[2018-04-11] MEDS: methylPREDNISolone SOD SUCC 40 MG/ML VIAL IVP SCH ×3 (06:06→22:52)
[2018-04-11] MEDS: METOPROLOL TARTRATE 5 MG/5 ML INJ IVP SCH ×4 (06:10→23:00)
[2018-04-11 06:19] LABS: INR 1.34 (0.83-1.16); PROTIME(PATIENT) 16.8 SEC (12.0-15.0)
[2018-04-11] MEDS: DEXMEDETOMIDINE HCL 400 MCG in NS 100 ML IV SCH (09:25)
--- NOTE | 2018-04-11 09:35 | PDINTPN ---
Sr. Director Product Management Progress Note Assessment/Plan: Assessment/plan: * Altered mental status. Consistent with acute delirium. Cause is unknown. May be related to infection/UTI. CT head negative. Doubt meningitis but a carcinomatosis etiology cannot be excluded at this time nor can subtle metastatic disease. Other factors including home medications, underlying neuro and psychiatric status, etc are all likely involved. She is requiring Precedex and intermittent Ativan. -agree with lumbar puncture * UTI: On ceftriaxone. She was on Levaquin for 2 days prior to admission. Cultures not growing. * GI bleed-upper endoscopy was negative. Likely lower GI source * Acute blood-loss anemia-status post transfusion -will follow H&H closely * COPD, ongoing tobacco abuse. Increased wheezing today. Oxygen requirements only at 2 L. Not tight, but would appear to have a mild exacerbation. -will decrease steroids * Congestive heart failure. BNP is significantly elevated. -will check echo * History of small cell lung cancer. Has been on treatment for this for the last 5 months, receiving chemotherapy. Her tumor mass in the left lower lobe has responded nicely. Followed by Oncology. * History of previous pulmonary embolism. On long-term anticoagulation. On heparin 10,000 units three times daily. Coumadin on hold. * Anemia: Hematocrit 22 today, without evidence of active ongoing bleeding. Will follow. * GI prophylaxis: On pantoprazole. * Metabolic: No issues currently identified. * History of multiple medical problems as outlined previously, stable. Subjective: No change in mental status. Objective: Vital Signs Temp Pulse Resp BP Pulse Ox 36.5 C 88 20 110/83 H 95 04/11/18 04:00 04/11/18 06:10 04/11/18 06:00 04/11/18 06:10 04/11/18 06:00 Laboratory Results 04/11/18 06:00 04/11/18 06:00 04/10/18 04/11/18 04/12/18 05:59 05:59 05:59 Intake Total 1180 2090 Output Total 1700 850 Balance -520 1240 PT 16.8 SEC (12.0-15.0) H 04/11/18 06:00 INR 1.34 (0.83-1.16) H 04/11/18 06:00 - Time Spent With Patient Time Spent With Patient: 25 min of time spent with patient, over 1/2 involved with coordination of care or counseling Physical Exam - Physical Exam General Appearance: no apparent distress, No alert Respiratory: decreased breath sounds, prolonged expiration, No respiratory distress, No wheezing Cardiac/Chest: normal peripheral pulses, regular rate, rhythm, systolic murmur Peripheral Pulses: 2+: carotid (R), carotid (L), femoral (R), femoral (L), dorsalis-pedis (R), dorsalis-pedis (L) Abdomen: normal bowel sounds, non-tender, soft Pelvic Exam: deferred Rectal: deferred Skin: normal color, warm/dry Extremities: normal range of motion Neuro/Psych: No alert ICD10 Worksheet Patient Problems: Problems Problem Status Onset Altered mental status Acute Hypokalemia Acute Leukocytosis Acute Severe sepsis Acute Small cell lung cancer Acute Tachycardia Acute Urinary tract infection Acute Chronic obstructive pulmonary disease with acute exacerbation Acute Coronary artery disease Acute Influenza A Acute NSTEMI (non-ST elevated myocardial infarction) Acute Pneumonia Acute Pulmonary embolism Acute
--- NOTE | 2018-04-11 09:52 | HOSPPROG ---
Hospitalist Progress Note Assessment/Plan: 62-year-old woman with a history significant for small cell carcinoma recently treated with chemotherapy and followed by Dr. Glez. She comes in with increasing confusion. She did have evidence of a possible UTI on admission however negative cultures. MS improved this pm and patient able to recognize at bedside. # Melena: EGD negative except ?esophageal ulcer. * continue PPI BID * follow H/H daily. # encephalopathy, unclear etiology. clearing today for unknown reasons. She is on Ceftriaxone for possible UTI/Pna * Continue treatment for infection * LP to rule out SCCA in spinal fluid or other infection. * ST eval for swallow * MRI negative. # Acute respiratory failure. CXR ?pleural fluid/pna pt never had WBC * check CXR, increased left pleural effusion * change abx to zosyn. follow up cxr in am, consider tap if no improvement with lasix * check echo and will give lasix to see if improves urine output. # pyuria, negative culture # decreased Urine output, normal creat this am * gentle fluids * check Echo * consider lasix. # COPD with acute respiratory exacerbation. * Add steroids and continue nebulizers * Chest x-ray looks fluid long will add Lasix * echo ordered. # anemia, slight drop in hemoglobin likely related to IV fluid. * no further melena, no obvious source. follow. # bipolar disease, patient unable to tolerate her medications at this time. Hopefully when her mental status clears we can resume her usual medications. # history of pulmonary embolism in May 2017. Given patient's anemia and likely procedure will hold anticoagulation for now. She is over 6 months of treatment currently # coronary artery disease status post stent. Continue tele Subjective: more alert, oriented to name only, recognizes at beside. no pain. Objective: Vital Signs Temp Pulse Resp BP Pulse Ox 36.5 C 88 20 110/83 H 95 04/11/18 04:00 04/11/18 06:10 04/11/18 06:00 04/11/18 06:10 04/11/18 06:00 Laboratory Results 04/11/18 06:00 04/11/18 06:00 04/10/18 04/11/18 04/12/18 05:59 05:59 05:59 Intake Total 1180 2090 Output Total 1700 850 Balance -520 1240 PT 16.8 SEC (12.0-15.0) H 04/11/18 06:00 INR 1.34 (0.83-1.16) H 04/11/18 06:00 - Physical Exam Constitutional: chronically ill appearing, obese Eyes: PERRL Ears, Nose, Mouth, Throat: moist mucous membranes Cardiovascular: regular rate and rhythym Respiratory: no respiratory distress, bronchial breath sounds Gastrointestinal: No normoactive bowel sounds (decreased) Genitourinary: winters in urethra Skin: No normal color (pale) Neurologic: No AAOx3 Psychiatric: encephalopathic ICD10 Worksheet Patient Problems: Problems Problem Status Onset NSTEMI (non-ST elevated myocardial infarction) Acute Coronary artery disease Acute Pulmonary embolism Acute Chronic obstructive pulmonary disease with acute exacerbation Acute Pneumonia Acute Influenza A Acute Altered mental status Acute Small cell lung cancer Acute Tachycardia Acute Leukocytosis Acute Hypokalemia Acute Urinary tract infection Acute Severe sepsis Acute
[2018-04-11] MEDS: NICOTINE 21 MG/24 HR PATCH TD SCH (10:37)
[2018-04-11] MEDS: METOPROLOL TARTRATE 25 MG TAB PO SCH (10:38)
[2018-04-11] MEDS: LORazepam 2 MG/ML INJ IVP PRN ×2 (11:00→21:08)
--- NOTE | 2018-04-11 11:47 | SOAPPROG ---
SOAP Progress Note Assessment/Plan: Assessment: - change in mental status - not resolved - results of MRI reviewed,small petechial hemorrhage r parietal.Etiology unclear - fluid overload - lasix - small cell ca lung - s/p 5 cycles of chemo. -Gi bleed, esophageal ulcer noted on UGI endo, being transfused Plan: - ICU care as you are doing - follow hct - LP today, will check paraneoplastic panel on csf 04/10/18 12:06 04/11/18 11:45 Subjective: Obtunded Objective: Vital Signs Temp Pulse Resp BP Pulse Ox 97.7 F 84 20 109/79 95 04/11/18 04:00 04/11/18 10:38 04/11/18 06:00 04/11/18 10:38 04/11/18 06:00 Laboratory Results 04/11/18 06:00 04/11/18 06:00 04/10/18 04/11/18 04/12/18 05:59 05:59 05:59 Intake Total 1180 2090 Output Total 1700 850 Balance -520 1240 PT 16.8 SEC (12.0-15.0) H 04/11/18 06:00 INR 1.34 (0.83-1.16) H 04/11/18 06:00 ICD10 Worksheet Patient Problems: Problems Problem Status Onset Altered mental status Acute Hypokalemia Acute Leukocytosis Acute Severe sepsis Acute Small cell lung cancer Acute Tachycardia Acute Urinary tract infection Acute Chronic obstructive pulmonary disease with acute exacerbation Acute Coronary artery disease Acute Influenza A Acute NSTEMI (non-ST elevated myocardial infarction) Acute Pneumonia Acute Pulmonary embolism Acute
--- NOTE | 2018-04-11 13:06 | SOAPPROG ---
SOAP Progress Note Assessment/Plan: Assessment: EGD yesterday with ? esophageal ulceration s/p treatment with epinephrine. No signs of bleeding. MS unchanged, LP today. ? HELPER TEACHER carcinomatosis. Plan: 04/11/18 13:01 1. Continue to monitor H and H 2. Continue on Pantoprazole 40 mg BID 3. No apparent acute GI issues at present. Will sign off. Please call with further questions. Subjective: CC: GI bleed Patient admitted with MS changes, know small cell CA. Had acute GI bleed yesterday. s/p EGD with treatment of ? esophageal ulcer. No signs or symptoms of rebleeding. Objective: Vital Signs Temp Pulse Resp BP Pulse Ox 36.5 C 84 20 109/79 95 04/11/18 04:00 04/11/18 10:38 04/11/18 06:00 04/11/18 10:38 04/11/18 06:00 Laboratory Results 04/11/18 06:00 04/11/18 12:14 04/10/18 04/11/18 04/12/18 05:59 05:59 05:59 Intake Total 1180 2090 Output Total 1700 850 Balance -520 1240 PT 16.8 SEC (12.0-15.0) H 04/11/18 06:00 INR 1.34 (0.83-1.16) H 04/11/18 06:00 Generic Name Dose Route Start Last Admin Trade Name Freq PRN Reason Stop Dose Admin Acetaminophen 650 mg 04/08/18 10:45 Tylenol PO 10/05/18 10:44 Q4HRS PRN Pain, Mild/Fever, Can Take PO Albuterol 3 ml 04/09/18 09:51 Proventil Neb IH 10/06/18 09:50 Q4HRS PRN Short of Breath/Dyspnea Alteplase, Recombinant 2 mg 04/08/18 14:15 Cathflo Activase IVP 10/05/18 14:14 PRN PRN Per PICC line policy Hydromorphone/Sodium Chloride 0.2 - 0.4 mg 04/08/18 20:17 04/10/18 12:34 Hydromorphone IVP 04/18/18 20:16 0.4 mg Q2HRS PRN Administration Pain, Severe Unable to Take PO Ceftriaxone Sodium/Dextrose 50 mls @ 100 mls/hr 04/09/18 09:00 04/11/18 10:37 Rocephin 1 Gm (Premix) IV 05/09/18 08:59 50 mls DAILY CHIDI Administration Protocol Dexmedetomidine HCl 400 mcg/ 104 mls @ 0 mls/hr 04/08/18 16:30 04/11/18 09:25 Sodium Chloride IV 10/05/18 16:29 104 mls CONT CHIDI Administration Protocol Titrate Lorazepam 0.5 - 1 mg 04/08/18 10:45 04/10/18 15:51 Ativan Injection IVP 10/05/18 10:44 1 mg Q8HRS PRN Administration Anxiety, Unable to Take PO Magnesium Sulfate 1 dose 04/08/18 10:45 Protocol Magnesium IV 10/05/18 10:44 AD PRN Pt on Electrolyte Protocol Protocol Methylprednisolone Sodium Succinate 20 mg 04/11/18 14:00 Solu-Medrol IVP 10/06/18 13:59 Q8HRS CHIDI Metoprolol Tartrate 25 mg 04/09/18 09:00 04/11/18 10:38 Lopressor PO 10/06/18 08:59 Not Given DAILY CHIDI Metoprolol Tartrate 2.5 mg 04/09/18 18:00 04/11/18 06:10 Lopressor Injection IVP 10/06/18 17:59 2.5 mg Q6HRS CHIDI Administration Nicotine 21 mg 04/08/18 10:45 04/11/18 10:37 Nicoderm Cq TD 10/05/18 10:44 21 mg DAILY CHIDI Administration Ondansetron HCl 4 mg 04/08/18 10:45 Zofran IVP 10/05/18 10:44 Q4HRS PRN Nausea/Vomiting, Can't Take PO Ondansetron HCl 4 mg 04/08/18 10:45 Zofran Odt PO 10/05/18 10:44 Q4HRS PRN Nausea/Vomiting, Use 1st Oxycodone HCl 30 mg 04/08/18 12:34 Oxycodone Ir PO 04/18/18 12:33 TID PRN Pain, Breakthrough Pantoprazole Sodium 40 mg 04/10/18 09:15 04/11/18 10:38 Protonix IVP 10/07/18 09:14 40 mg Q6H CHIDI Administration Potassium Chloride 1 dose 04/08/18 10:45 Protocol Potassium MISC 10/05/18 10:44 AD PRN Pt on Electrolyte Protocol Protocol Warfarin Sodium 2.5 mg 04/08/18 21:00 04/08/18 19:58 Coumadin PO 10/05/18 20:59 Not Given [id number] [facility] Warfarin Sodium 5 mg 04/10/18 21:00 Coumadin PO 10/07/18 20:59 [id number] [facility] Discontinued Medications Generic Name Dose Route Start Last Admin Trade Name Freq PRN Reason Stop Dose Admin Albuterol/Ipratropium 3 ml 04/08/18 12:00 04/10/18 04:58 Duoneb IH 10/05/18 11:59 3 ml QID [facility] Administration Enoxaparin Sodium 40 mg 04/09/18 09:00 Lovenox SC 10/06/18 08:59 DAILY [facility] Epinephrine HCl Confirm 04/10/18 09:50 04/10/18 11:54 Epinephrine Administered 04/10/18 09:51 0.4 mg Dose Administration 1 mg IVP .STK-MED ONE Furosemide 40 mg 04/09/18 09:52 04/09/18 11:24 Lasix Injection IVP 04/09/18 09:53 40 mg ONCE ONE Administration Furosemide 40 mg 04/10/18 19:00 04/10/18 19:29 Lasix Injection IVP 04/10/18 19:01 40 mg ONCE ONE Administration Gadobutrol Confirm 04/09/18 13:17 Gadavist 1 Mmol/Ml Administered 04/09/18 13:18 Dose 10 ml IVP .STK-MED ONE Heparin Sodium (Porcine) 10,000 unit 04/08/18 14:00 04/09/18 00:08 Heparin Sc Injection SC 10/05/18 13:59 Not Given Q8HRS [facility] Sodium Chloride 1,000 mls @ 0 mls/hr 04/08/18 06:04 04/08/18 06:57 Ns IV 04/08/18 06:05 1,000 mls EDNOW ONE Administration Protocol Wide Open Sodium Chloride 1,000 mls @ 0 mls/hr 04/08/18 06:26 04/08/18 08:10 Ns IV 04/08/18 06:27 1,000 mls EDNOW ONE Administration Protocol Wide Open Potassium Chloride 100 mls @ 100 mls/hr 04/08/18 06:43 04/08/18 07:33 Potassium Cl 10 Meq (Premix) IV 04/08/18 07:42 100 mls EDNOW ONE Administration Ceftriaxone Sodium/Dextrose 50 mls @ 100 mls/hr 04/08/18 06:44 04/08/18 08:58 Rocephin 1 Gm (Premix) IV 04/08/18 07:13 50 mls EDNOW ONE Administration Protocol Azithromycin 500 mg/ Sodium 255 mls @ 255 mls/hr 04/08/18 09:30 04/08/18 09: 21 Chloride IV 04/08/18 10:29 255 mls EDNOW ONE Administration Protocol Potassium Chloride 100 mls @ 100 mls/hr 04/08/18 09:45 04/08/18 10:43 Potassium Cl 10 Meq (Premix) IV 04/08/18 10:44 100 mls EDNOW ONE Administration Potassium Chloride/Dextrose/Sod Cl 1,000 mls @ 125 mls/hr 04/08/18 11:30 01/22 00:12 D5w 1/2 Ns W/ 20 Kcl/L IV 10/05/18 11:29 1,000 mls CONT CHIDI Administration Potassium Chloride 50 mls @ 50 mls/hr 04/08/18 19:15 04/08/18 20:01 Potassium Cl 20 Meq (Premix) IV 04/08/18 21:14 50 mls Q1H CHIDI Administration Magnesium Sulfate/Dextrose 100 mls @ 100 mls/hr 04/08/18 23:11 04/09/18 00:11 Magnesium Sulf 1 Gm (Premix) IV 04/09/18 00:10 100 mls ONCE ONE Administration Potassium Chloride 50 mls @ 100 mls/hr 04/09/18 06:15 04/09/18 09:17 Potassium Cl 10 Meq (Premix) IV 04/09/18 07:44 50 mls Q30M CHIDI Administration Potassium Chloride 50 mls @ 50 mls/hr 04/09/18 16:26 04/09/18 16:42 Potassium Cl 20 Meq (Premix) IV 04/09/18 17:25 50 mls ONCE ONE Administration Magnesium Sulfate/Dextrose 100 mls @ 100 mls/hr 04/10/18 09:33 04/10/18 12:15 Magnesium Sulf 1 Gm (Premix) IV 04/10/18 10:32 100 mls ONCE ONE Administration Potassium Chloride 50 mls @ 50 mls/hr 04/11/18 03:38 04/11/18 04:02 Potassium Cl 20 Meq (Premix) IV 04/11/18 04:37 50 mls ONCE ONE Administration Lorazepam 1 mg 04/08/18 07:18 04/08/18 07:21 Ativan Injection IVP 04/08/18 07:19 1 mg EDNOW ONE Administration Lorazepam 1 mg 04/09/18 16:34 04/09/18 14:45 Ativan Injection IVP 04/09/18 16:35 1 mg ONCE ONE Administration Methylprednisolone Sodium Succinate 40 mg 04/09/18 14:00 04/11/18 06:06 Solu-Medrol IVP 10/06/18 13:59 40 mg Q8HRS CHIDI Administration Midazolam HCl Confirm 04/08/18 15:29 Versed Administered 04/08/18 15:30 Dose 2 mg .ROUTE .STK-MED ONE Midazolam HCl 1 mg 04/08/18 15:45 04/08/18 16:40 Versed IVP 04/08/18 15:46 1 mg ONCE ONE Administration Midazolam HCl 1 mg 04/08/18 16:15 04/08/18 16:40 Versed IVP 04/08/18 16:16 1 mg ONCE ONE Administration Naloxone HCl 0.1 mg 04/10/18 11:28 Narcan IVP 04/10/18 12:29 PRN PRN PACU Resp Rate <10/min Olanzapine 10 mg 04/08/18 07:13 04/08/18 14:03 Zyprexa Zydis PO 04/08/18 07:14 Not Given EDNOW ONE Olanzapine 5 mg 04/08/18 20:17 04/08/18 20:25 Olanzapine PO 04/08/18 20:18 5 mg ONCE ONE Administration Ondansetron HCl 2 - 4 mg 04/10/18 11:28 Zofran IVP 04/10/18 12:29 Q10M PRN PACU, Nausea/Vomiting Post-Op Oxycodone HCl 30 mg 04/08/18 11:33 Oxycodone Ir PO 04/18/18 11:32 TID PRN Pain, Breakthrough Pantoprazole Sodium 40 mg 04/09/18 09:00 04/10/18 10:48 Protonix PO 10/06/18 08:59 Not Given DAILY CHIDI Pantoprazole Sodium 80 mg 04/10/18 09:14 04/10/18 09:43 Protonix IVP 04/10/18 09:15 80 mg ONCE ONE Administration Potassium Chloride 40 meq 04/08/18 06:43 04/08/18 07:32 Klor Packets PO 04/08/18 06:44 40 meq EDNOW ONE Administration Propofol Confirm 04/10/18 10:28 Diprivan 10 Mg/Ml (Premix) Administered 04/10/18 10:29 Dose 500 mg IV .STK-MED ONE Vasopressin Confirm 04/10/18 10:28 Pitressin Administered 04/10/18 10:29 Dose 20 unit .ROUTE .STK-MED ONE Physical Exam - Physical Exam General Appearance: unresponsive Respiratory: lungs clear Cardiac/Chest: regular rate, rhythm Abdomen: non-tender, soft Skin: normal color, warm/dry ICD10 Worksheet Patient Problems: Problems Problem Status Onset Altered mental status Acute Hypokalemia Acute Leukocytosis Acute Severe sepsis Acute Small cell lung cancer Acute Tachycardia Acute Urinary tract infection Acute Chronic obstructive pulmonary disease with acute exacerbation Acute Coronary artery disease Acute Influenza A Acute NSTEMI (non-ST elevated myocardial infarction) Acute Pneumonia Acute Pulmonary embolism Acute
[2018-04-11] MEDS ORDERED: NS 1,000 ML IV SCH (14:45)
--- NOTE | 2018-04-11 15:01 | ASMTCMCOM ---
CM Note CM Note Notes: Patient may have lumbar puncture today to help determine cause of confusion. Support to patient's . Date Signed: 04/11/2018 03:00 PM Electronically Signed By:Tanisha Sosa LCSW
[2018-04-11] MEDS ORDERED: FUROSEMIDE 20 MG/2 ML VIAL IVP ONE (15:08)
[2018-04-11] MEDS ORDERED: FUROSEMIDE 40 MG/4 ML VIAL IVP ONE (15:15)
--- NOTE | 2018-04-11 15:19 | ASMTCMCOM ---
CM Note CM Note Notes: Patient's PCP, Ruthy's office called to say that she was staring to be more confused b/4 her admission, they were concerned about her nutrition at home and they were going to encourage Palliative Care. If patient goes home, CM could set up Meals on Wheels. Information given to Hospitalist. Date Signed: 04/11/2018 03:18 PM Electronically Signed By:Tanisha Sosa LCSW
[2018-04-11 17:54] LABS: PLATELET COUNT 183 10^3/uL (150-400)
[2018-04-11] MEDS: PIPERACILLIN/TAZO 3.375 GM/DEX 50 ML IV SCH ×2 (18:04→23:01)
[2018-04-12] MEDS: DEXMEDETOMIDINE HCL 400 MCG in NS 100 ML IV SCH ×2 (01:29→06:31)
[2018-04-12] MEDS: PANTOPRAZOLE SODIUM 40 MG VIAL IVP SCH ×4 (03:05→21:13)
[2018-04-12 04:36] LABS: PLATELET COUNT 188 10^3/uL (150-400)
[2018-04-12 04:44] LABS: INR 1.39 (0.83-1.16); PROTIME(PATIENT) 17.2 SEC (12.0-15.0)
[2018-04-12] MEDS: LORazepam 2 MG/ML INJ IVP PRN (05:10)
[2018-04-12] MEDS: methylPREDNISolone SOD SUCC 40 MG/ML VIAL IVP SCH ×3 (05:20→21:16)
[2018-04-12] MEDS: METOPROLOL TARTRATE 5 MG/5 ML INJ IVP SCH ×3 (05:20→18:32)
[2018-04-12] MEDS: PIPERACILLIN/TAZO 3.375 GM/DEX 50 ML IV SCH ×3 (05:25→18:32)
[2018-04-12] MEDS: METOPROLOL TARTRATE 25 MG TAB PO SCH (08:42)
[2018-04-12] MEDS: NICOTINE 21 MG/24 HR PATCH TD SCH (08:43)
--- NOTE | 2018-04-12 08:57 | PDINTPN ---
Chiropractic Care Progress Note Assessment/Plan: Assessment/plan: * Altered mental status. Consistent with acute delirium. Markedly improved. Awake and alert. Oriented x3 now. * UTI: On ceftriaxone. * Pneumonia with large pleural effusion-now on Zosyn -will obtain thoracentesis * GI bleed-upper endoscopy was negative. Likely lower GI source * Acute blood-loss anemia-status post transfusion -will follow H&H closely * COPD, ongoing tobacco abuse. Stable * Congestive heart failure. BNP is significantly elevated. * History of small cell lung cancer. Has been on treatment for this for the last 5 months, receiving chemotherapy. Her tumor mass in the left lower lobe has responded nicely. Followed by Oncology. * History of previous pulmonary embolism. On long-term anticoagulation. On heparin 10,000 units three times daily. Coumadin on hold. * Anemia: Hematocrit 22 today, without evidence of active ongoing bleeding. Will follow. * GI prophylaxis: On pantoprazole. * Metabolic: No issues currently identified. * History of multiple medical problems as outlined previously, stable. * PT/OT * Speech * Out of bed to chair Subjective: Laboratory Results 04/12/18 04:30 04/12/18 04:30 04/12/18 04/11/18 04/11/18 04:30 17:45 06:00 Hgb 9.0 g/dL L g/dL (12.6 - 16.3) Hct 26.9 % L % (38.0 - 47.0) PT INR Potassium Calcium 8.0 mg/dL L mg/dL (8.5 - 10.4) Magnesium 2.2 mg/dL mg/dL (1.6 - 2.3) Total Bilirubin 0.5 mg/dL mg/dL (0.1 - 1.4) AST 14 IU/L IU/L (14 - 46) ALT 29 IU/L IU/L (9 - 52) Alkaline Phosphatase 86 IU/L IU/L (38 - 126) Total Protein 4.7 g/dL L g/dL (6.3 - 8.2) Albumin 2.4 g/dL L g/dL (3.5 - 5.0) Vitamin B12 > 1000 pg/mL H pg/mL (239 - 931) 04/11/18 04/11/18 06:00 06:00 Hgb Hct PT 16.8 SEC H SEC (12.0 - 15.0) INR 1.34 H (0.83 - 1.16) Potassium 5.3 mEq/L H mEq/L (3.3 - 5.0) Calcium Magnesium 2.2 mg/dL mg/dL (1.6 - 2.3) Total Bilirubin AST ALT Alkaline Phosphatase Total Protein Albumin Vitamin B12 Objective: Vital Signs Temp Pulse Resp BP Pulse Ox 36.9 C 85 37 H 126/83 H 96 04/11/18 20:00 04/12/18 08:00 04/12/18 08:00 04/12/18 08:00 04/12/18 08:00 Laboratory Results 04/12/18 04:30 04/12/18 04:30 04/11/18 04/12/18 04/13/18 05:59 05:59 05:59 Intake Total 2090 1486 Output Total 850 905 Balance 1240 581 PT 17.2 SEC (12.0-15.0) H 04/12/18 04:30 INR 1.39 (0.83-1.16) H 04/12/18 04:30 - Time Spent With Patient Time Spent With Patient: 35 min of time spent with patient, over 1/2 involved with coordination of care or counseling Case discussed with nursing Physical Exam - Physical Exam General Appearance: alert, no apparent distress EENT: PERRL/EOMI Neck: non-tender Respiratory: crackles (Right greater than left), prolonged expiration, No respiratory distress, No wheezing Cardiac/Chest: normal peripheral pulses, regular rate, rhythm, systolic murmur Peripheral Pulses: 2+: carotid (R), carotid (L), femoral (R), femoral (L), dorsalis-pedis (R), dorsalis-pedis (L) Abdomen: normal bowel sounds, non-tender, soft Pelvic Exam: deferred Rectal: deferred Skin: normal color, warm/dry Extremities: normal range of motion, non-tender, normal inspection, normal capillary refill Neuro/Psych: alert, oriented x 3 ICD10 Worksheet Patient Problems: Problems Problem Status Onset Altered mental status Acute Hypokalemia Acute Leukocytosis Acute Severe sepsis Acute Small cell lung cancer Acute Tachycardia Acute Urinary tract infection Acute Chronic obstructive pulmonary disease with acute exacerbation Acute Coronary artery disease Acute Influenza A Acute NSTEMI (non-ST elevated myocardial infarction) Acute Pneumonia Acute Pulmonary embolism Acute
--- NOTE | 2018-04-12 10:01 | SOAPPROG ---
SOAP Progress Note Assessment/Plan: Assessment: - change in mental status - better today- results of MRI reviewed,small petechial hemorrhage r parietal.Etiology unclear - - small cell ca lung - s/p 5 cycles of chemo. -Gi bleed, esophageal ulcer noted on UGI endo, Hct stable Plan: Continue supportive care, LP deferred given improved ms 04/10/18 12:06 04/11/18 11:45 04/12/18 09:57 Subjective: more alert, oriented times 2 Objective: Vital Signs Temp Pulse Resp BP Pulse Ox 98.4 F 85 37 H 126/83 H 96 04/11/18 20:00 04/12/18 08:00 04/12/18 08:00 04/12/18 08:00 04/12/18 08:00 Laboratory Results 04/12/18 04:30 04/12/18 04:30 04/11/18 04/12/18 04/13/18 05:59 05:59 05:59 Intake Total 2090 1486 Output Total 850 905 Balance 1240 581 PT 17.2 SEC (12.0-15.0) H 04/12/18 04:30 INR 1.39 (0.83-1.16) H 04/12/18 04:30 ICD10 Worksheet Patient Problems: Problems Problem Status Onset Altered mental status Acute Hypokalemia Acute Leukocytosis Acute Severe sepsis Acute Small cell lung cancer Acute Tachycardia Acute Urinary tract infection Acute Chronic obstructive pulmonary disease with acute exacerbation Acute Coronary artery disease Acute Influenza A Acute NSTEMI (non-ST elevated myocardial infarction) Acute Pneumonia Acute Pulmonary embolism Acute
--- NOTE | 2018-04-12 10:16 | HOSPPROG ---
Hospitalist Progress Note Assessment/Plan: DIAGNOSES: # ACUTE ENCEPHALOPATHY, MULTIFACTORIAL * Per nurses is somewhat better today than yesterday but remains quite encephalopathic, a lot of word salad # ACUTE HYPOXEMIC RESPIRATORY FAILURE WITH CHRONIC RESPIRATORY FAILURE AND COPD * Very slow and minimal improvement so far # ACUTE PNEUMONIA * Currently on Zosyn for this # SEVERE ISCHEMIC CARDIOMYOPATHY EJECTION FRACTION 20% MULTIPLE WALL MOTION ABNORMALITIES * Picture is suggestive of ischemic disease # ACUTE UPPER GI BLEED OF UNCERTAIN ORIGIN WITH MELENIC STOOLS * Endoscopy issues chronic gastritis and an esophageal ulcer which was injected # ACUTE ANEMIA, COMBINATION OF POST HEMORRHAGIC ANEMIA, AND MACROCYTIC ANEMIA DUE TO HER CANCER * Status post 1 unit packed red blood cells # LARGE BILATERAL PLEURAL EFFUSIONS # ACUTE PYURIA OF UNCERTAIN SOME ETIOLOGY AND SIGNIFICANCE, NEGATIVE URINE CULTURE # 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 # HISTORY OF BIPOLAR DISORDER PLANS: * Continue management of acute respiratory failure bronchodilators steroid and antibiotics and pulmonary toilet * Follow blood cultures closely * At this point given her limited prognosis with her metastatic cancer, and her poor functional status making treatment difficult, the decision is made to treat her cardiac issues with medication and to not currently pursue angiography or consideration of interventional measures * Continue to minimize medications and other factors that would aggravate her delirium, support sleep nutrition etc * Physical therapy and occupational therapy, increase activity as able * Continue acid suppression with proton pump inhibitor for now * PT and OT * No medicinal DVT prophylaxis at this time due to upper GI bleed and anemia * Palliative conversations with the patient and family would be appropriate, the patient would not really be able to participate at this time Seen by me today on hospitals rounds as well as multidisciplinary rounds I reviewed in detail with Dr. Alonso Jian and with Dr. Russell Ricardo SUBJECTIVE: Still quite short of breath, little change from yesterday Remains confused, hard to interpret of other symptoms, but does not appear to have any pain OBJECTIVE Vitals reviewed: Temperature 38.5 degrees last night, afebrile so far today Intermittently still quite tachypneic, some tachycardia intermittently blood pressure is good Wheel Adjuster, my review: Exam: alert oriented skin warm dry color ok resps not labored lungs clear BSs heart regular abd soft nondistended nontender, bowel sounds present limbs warm, no edema iv site ok Laboratory data: White blood cell count up a bit higher today but stable hemoglobin and platelets , remains fairly anemic Sodium bit high at 146 today of from yesterday, BUN rising also at 33 LDH at 916 albumin 2.4 Microbiology: Urine and blood cultures remain negative to date Radiology: I reviewed today's chest x-ray images and compared with previous x-rays: There is persistence of bilateral pleural effusions and consolidation at the bases unchanged from yesterday Objective: Vital Signs Temp Pulse Resp BP Pulse Ox 36.9 C 85 37 H 126/83 H 96 04/11/18 20:00 04/12/18 08:00 04/12/18 08:00 04/12/18 08:00 04/12/18 08:00 Laboratory Results 04/12/18 04:30 04/12/18 04:30 04/11/18 04/12/18 04/13/18 06:59 06:59 06:59 Intake Total 2090 1486 Output Total 850 905 Balance 1240 581 PT 17.2 SEC (12.0-15.0) H 04/12/18 04:30 INR 1.39 (0.83-1.16) H 04/12/18 04:30 - Time Spent With Patient Time Spent with Patient: greater than 35 minutes Time Spent with Patient: Greater than 35 minutes spent on this patients care, greater than 50% of time spent counseling, educating, and coordinating care regarding the above mentioned plan. ICD10 Worksheet Patient Problems: Problems Problem Status Onset Altered mental status Acute Hypokalemia Acute Leukocytosis Acute Severe sepsis Acute Small cell lung cancer Acute Tachycardia Acute Urinary tract infection Acute Chronic obstructive pulmonary disease with acute exacerbation Acute Coronary artery disease Acute Influenza A Acute NSTEMI (non-ST elevated myocardial infarction) Acute Pneumonia Acute Pulmonary embolism Acute
--- NOTE | 2018-04-12 11:04 | ECHO ---
[email or web address] [address] [address] Main: [phone] Fax: Transthoracic Echocardiogram Name: JOSE M LINDO MR#: [id number] Study Date: 04/12/2018 Study Time: 10:06 AM Date of : 1955 Age: 62 year(s) Height: 177.8 cm (70 in.) Weight: 72.58 kg (160 lb.) BSA: 1.9 m2 Gender: Female Examination: Echo Indication: Elevated BNP, Chemotherapy for small cell lung CA, COPD Image Quality: Contrast: Requested by: Steve Gan BP: 122 mmHg/88 mmHg Heart Rate: Rhythm: Tachycardia Indication: Elevated BNP, Chemotherapy for small cell lung CA, COPD Procedure Staff Commercial Intelligence Manager: Richard Bruce RDCS Reading Physician: James Ricardo MD Requesting Provider: Conclusions: Normal size left ventricle. Severely reduced systolic LV function. EF is 20 %. The basal anterior, basal inferoseptal, basal inferior, mid anterior, mid inferior, mid inferolateral and mid anterolateral wall segments are hypokinetic. The basal anteroseptal, mid anteroseptal, mid inferoseptal, apical anterior, apical septal, apical inferior, apical lateral and apex wall segments are akinetic. Mild tricuspid regurgitation is present. The pulmonary artery pressure is severely increased. There is a large pleural effusion.. Measurements: Chambers Valvular Assessment AV/MV Valvular Assessment TV/PV Normal Normal Normal Name Value Range Name Value Range Name Value Range Ao Chela (MM): 3.8 cm (2.2 cm-3.7 AV Vmax: 1.28 m/s (1 m/s-1.7 TR Vmax: 4.00 mm/s ( - ) cm) m/s) TR PGmax: 64 mmHg ( - ) IVSd (2D): 0.8 cm (0.6 cm-1.1 AV maxP mmHg ( - ) syst. PAP: 74 mmHg ( - ) cm) LVOT Vmax: 1.02 m/s (0.7 m/s-1.1 PV Vmax: 1.04 m/s (0.6 m/s-0.9 LVDd (2D): 5.1 cm (3.9 cm-5.3 m/s) m/s) cm) MV E Vmax: 0.58 m/s ( - ) PV PGmax: 4 mmHg ( - ) LVDs (2D): 4.5 cm (2.1 cm-4 MV A Vmax: 1.02 m/s ( - ) cm) MV E/A: 0.57 ( - ) LVPWd (2D): 0.9 cm ( - ) LVEF (BP): 20 % (>=55 %) Continued Measurements: Chambers Valvular Assessment AV/MV Valvular Assessment TV/PV Patient: JOSE M LINDO Study Date: 04/12/2018 Page 1 of 2 10:06 AM Name Value Name Value Name Value LADs Lon.4 cm MV E' Septal: 0.08 m/s CVP (est.): 10 mmHg LA Area: 15.8 cm2 MV E/E' Septal: 7.70 MV E/E' Lateral: 8.40 Findings: Left Ventricle: Normal size left ventricle. Severely reduced systolic LV function. EF is 20 %. The basal anterior, basal inferoseptal, basal inferior, mid anterior, mid inferior, mid inferolateral and mid anterolateral wall segments are hypokinetic. The basal anteroseptal, mid anteroseptal, mid inferoseptal, apical anterior, apical septal, apical inferior, apical lateral and apex wall segments are akinetic. All remaining scored wall segments are normal. Diastolic LV function normal for age. Right Ventricle: Normal size right ventricle. Moderately to severely reduced right ventricular function. Left Atrium: The left atrium is normal in size. Right Atrium: The right atrium is normal in size. Mitral Valve: The mitral valve is normal in appearance and function. There is no mitral valve regurgitation. Aortic Valve: The aortic valve is tri-leaflet. The aortic valve is normal in appearance. Tricuspid Valve: Mild tricuspid regurgitation is present. The pulmonary artery pressure is severely increased. Pulmonic Valve: The pulmonic valve is normal in appearance and function. Aorta: The aorta is normal. Pericardium: No pericardial effusion. There is a large pleural effusion.. (No Signature Object) Wall Motion Scores Patient: JOSE M LINDO Study Date: 04/12/2018 Page 2 of 2 10:06 AM [id number]
--- NOTE | 2018-04-12 12:55 | ASMTCMCOM ---
CM Note CM Note Notes: Patient's mental status greatly improved today. She was able to work with PT/OT, who are both recommending SNF at this point. However, we have also ordered a Palliative Care consult, and this will also help with discharge planning. She is being followed by oncology, cardiology, pulmonology, and hospital medicine. Case Management will follow. Date Signed: 04/12/2018 12:54 PM Electronically Signed By:Devi Hope RN
[2018-04-12] MEDS ORDERED: LIDOCAINE 1% 300 MG/30 ML SDV ONE (13:49)
--- NOTE | 2018-04-12 13:49 | PDCARCONS ---
Cardiology Consult Reason for Consult: Abnormal echocardiogram suggesting a new cardiomyopathy. Chief Complaint: She initially presented with altered mental status. History of Present Illness: 62-year-old female seen in consultation in the intensive care unit here at [facility]. She has known CAD back in October of 2014. At that time she underwent coronary angiography by Dr. Joao Nelson. Angiography revealed a subtotal occlusion of a principal diagonal branch which was treated with placement of a 2.25 x 24 mm Promus stent. At that time, she had residual LAD disease in the midportion up to 50%. Her ejection fraction was noted to be preserved. She does smoke about 1 pack of cigarettes daily. Recently, she was diagnosed with small cell lung cancer. She has been treated with 5 rounds of chemotherapy. In discussing this with the oncologist she did not receive Adriamycin/bleomycin or Herceptin. She also did not receive radiation. She was admitted to the hospital on April 08 with mental status changes. At that time, she was confused and combative. She remains confused although they have seen some improvement since admission. It is thought that her encephalopathy might be related to a urinary tract infection. Additionally, she has a history of COPD. She has had hypoxemia during this hospitalization. Ultimately was noted that she had a pleural effusion. A brain atretic peptide was measured which was markedly elevated which prompted the performance of an echocardiogram. There is a full and separately dictated report on the chart however the echocardiogram indicates an ejection fraction that is severely reduced at about 20% associated with wall motion abnormalities in the territory of the left anterior descending coronary artery. In talking to her and her she has not had any chest discomfort, chest pain, chest pressure or heaviness. She does have chronic exertional dyspnea. She notes no significant edema. During this hospitalization was also noted that she had an upper GI bleed. There are plans for her to receive consultation from hospice therapy. History Information - Allergies/Home Medication List Allergies/Adverse Reactions: nitrofurantoin macrocrystalline [From Macrobid] Allergy (Severe, Verified 06:12) Swelling/neck,face,throat nitrofurantoin Allergy (Unknown, Verified 04/08/18 06:12) Swelling/neck,face,throat ciprofloxacin Allergy (Verified 04/08/18 06:12) "BURNING SENSATION IN MY FEET" codeine Allergy (Verified 04/08/18 06:12) Vomiting nitrofurantoin macrocrystalline Allergy (Unknown, Uncoded 04/08/18 06:12) Swelling/neck,face,throat Home Medications: Ondansetron HCl [Zofran] 4 mg PO Q6 PRN 02/16/16 [Last Taken 01/27/18] Pantoprazole Sodium [Protonix 40mg (*)] 40 mg PO DAILY 02/16/16 [Last Taken ] oxyCODONE IR [Oxycodone Ir (*)] 30 mg PO TID PRN 02/16/16 [Last Taken 01/27/18] Metoprolol Tartrate [Lopressor 25 mg (*)] 25 mg PO DAILY 05/09/17 [Last Taken ] Warfarin Sodium [Coumadin 2.5MG (*)] 2.5 mg PO SUTUTHSA@21 09/16/17 [Last Taken 04/06/18] morphINE SR [Ms Contin/Oramorph 15 mg (*)] 15 mg PO BID 09/19/17 [Last Taken ] Acetaminophen [Tylenol 325mg (*)] 325 mg PO TID PRN 10/20/17 [Last Taken ] Pregabalin [Lyrica 75mg (*)] 75 mg PO BID 10/20/17 [Last Taken 01/26/18] Warfarin Sodium [Coumadin 5MG (*)] 5 mg PO MWF 10/20/17 [Last Taken 04/07/18] hydrOXYzine HCL [hydrOXYzine HCL (RX)] 25 mg PO HS 10/20/17 [Last Taken 01/26/18 ] I have personally reviewed and updated: medical history, social history, surgical history Past Medical History: Non-small cell lung cancer, chronic tobacco abuse, severe COPD, history of GI bleed a, history of DVT/PE, history of coronary artery disease. - Surgical History Reports: no pertinent surgical hx - Family History Positive for: non-pertinent - Social History Smoking Status: Heavy smoker Physical Exam Physical Exam: Temp Pulse Resp BP Pulse Ox 36.9 C 85 17 111/17 L 100 04/11/18 20:00 04/12/18 12:00 04/12/18 12:00 04/12/18 12:00 04/12/18 12:00 O2 (L/minute) 6 FIO2 (%) 35 Constitutional: other (She is chronically ill in appearance and appears greater than her stated age, wearing nasal cannula oxygen) Cardiovascular: regular rate and rhythym, No systolic murmur, No irregularly irregular, No diastolic murmur, No JVD Peripheral Pulses: 2+: carotid (R), carotid (L) Respiratory: no respiratory distress, no rales or rhonchi, clear to auscultation Gastrointestinal: soft, non-tender abdomen Skin: warm, normal color Neurologic: other (She is awake however not oriented) Lab and Imaging 04/12/18 04:30 04/12/18 04:30 WBC 9.22 10^3/uL (3.80-9.50) 04/12/18 04:30 RBC 2.62 10^6/uL (4.18-5.33) L 04/12/18 04:30 Hgb 8.8 g/dL (12.6-16.3) L 04/12/18 04:30 Hct 27.2 % (38.0-47.0) L 04/12/18 04:30 MCV 103.8 fL (81.5-99.8) H 04/12/18 04:30 MCH 33.6 pg (27.9-34.1) 04/12/18 04:30 MCHC 32.4 g/dL (32.4-36.7) 04/12/18 04:30 RDW 22.0 % (11.5-15.2) H 04/12/18 04:30 Plt Count 188 10^3/uL (150-400) 04/12/18 04:30 MPV 11.0 fL (8.7-11.7) 04/12/18 04:30 Neut % (Auto) Not Reported 04/12/18 04:30 Lymph % (Auto) Not Reported 04/12/18 04:30 Barron % (Auto) Not Reported 04/12/18 04:30 Eos % (Auto) Not Reported 04/12/18 04:30 Baso % (Auto) Not Reported 04/12/18 04:30 Nucleat RBC Rel Count Not Reported 04/12/18 04:30 Absolute Neuts (auto) Not Reported 04/12/18 04:30 Absolute Lymphs (auto) Not Reported 04/12/18 04:30 Absolute Monos (auto) Not Reported 04/12/18 04:30 Absolute Eos (auto) Not Reported 04/12/18 04:30 Absolute Basos (auto) Not Reported 04/12/18 04:30 Absolute Nucleated RBC Not Reported 04/12/18 04:30 Immature Gran % Not Reported 04/12/18 04:30 Seg Neutrophils % 95.0 % 04/12/18 04:30 Band Neutrophils % 0 % 04/12/18 04:30 Lymphocytes % 1.0 % 04/12/18 04:30 Monocytes % 4.0 % 04/12/18 04:30 Eosinophils % 0 % 04/12/18 04:30 Basophils % 0 % 04/12/18 04:30 Metamyelocytes % 0 % 04/12/18 04:30 Myelocytes % 0 % 04/12/18 04:30 Promyelocytes % 0 % 04/12/18 04:30 Blast Cells % 0 % 04/12/18 04:30 Immature Gran # Not Reported 04/12/18 04:30 Absolute Seg Neuts 8.76 10^/uL (1.70-6.50) H 04/12/18 04:30 Absolute Band Neuts 0.00 10^3/uL (0.00-0.70) 04/12/18 04:30 Absolute Lymphocytes 0.09 10^3/uL (1.00-3.00) L 04/12/18 04:30 Absolute Monocytes 0.37 10^3/uL (0.30-0.80) 04/12/18 04:30 Absolute Eosinophils 0.00 10^3/uL (0.03-0.40) L 04/12/18 04:30 Absolute Basophils 0.00 10^3/uL (0.02-0.10) L 04/12/18 04:30 Absolute Metamyelocyte 0.00 10^3/mL (0.00-0.00) 04/12/18 04:30 Absolute Myelocytes 0.00 10^3/mL (0.00-0.00) 04/12/18 04:30 Absolute Promyelocytes 0.00 10^3/uL (0.00-0.00) 04/12/18 04:30 Absolute Plasma Cells 0.00 10^3/uL (0.00-0.00) 04/12/18 04:30 Absolute Blast Cells 0.00 10^3/uL (0.00-0.00) 04/12/18 04:30 Plasma Cells % 0 % 04/12/18 04:30 Platelet Estimate ADEQUATE (ADEQ) 04/12/18 04:30 Polychromasia 1+ H 04/12/18 04:30 Hypochromasia 1+ H 04/12/18 04:30 Microcytic Cells 1+ H 04/12/18 04:30 Oval Macrocytes 1+ H 04/12/18 04:30 Stomatocytes 1+ H 04/08/18 06:00 PT 17.2 SEC (12.0-15.0) H 04/12/18 04:30 INR 1.39 (0.83-1.16) H 04/12/18 04:30 APTT 35.3 SEC (23.0-38.0) 04/08/18 06:00 POC Blood Source VENOUS 04/08/18 06:24 Puncture Site LEFT BRACHIAL 04/10/18 13:30 Patient Temperature 37.0 DEGREES 04/10/18 13:30 pCO2 34 mmHg (34-38) 04/10/18 13:30 pO2 105 mmHg (65-75) H 04/10/18 13:30 Total CO2 23 mEq/L (23-27) 04/10/18 13:30 ABG pH 7.43 (7.35-7.45) 04/10/18 13:30 ABG HCO3 22 mEq/L (22-26) 04/10/18 13:30 ABG O2 Saturation 98 % (92-95) H 04/10/18 13:30 ABG Base Excess -1.4 mEq/L (-2.5-2.5) 04/10/18 13:30 POC VBG pH 7.57 (7.31-7.42) H 04/08/18 06:24 POC VBG pCO2 42 mmHg (40-44) 04/08/18 06:24 POC VBG pO2 23 mmHg (35-40) L 04/08/18 06:24 POC VBG HCO3 38 mEq/L (22-26) H 04/08/18 06:24 POC VBG Total CO2 39 mEq/L (21-27) H 04/08/18 06:24 POC VBG Base Excess 16.0 mEq/L (-2.5-2.5) H 04/08/18 06:24 POC Mix VBG O2 Sat 48 % (65-75) L 04/08/18 06:24 Total O2 Concentration 15.0 LITERS 04/10/18 13:30 Sodium 146 mEq/L (135-145) H 04/12/18 04:30 Potassium 4.3 mEq/L (3.3-5.0) 04/12/18 04:30 Chloride 112 mEq/L (97-110) H 04/12/18 04:30 Carbon Dioxide 26 mEq/l (22-31) 04/12/18 04:30 Anion Gap 8 mEq/L (8-16) 04/12/18 04:30 BUN 33 mg/dL (7-23) H 04/12/18 04:30 Creatinine 0.8 mg/dL (0.6-1.0) 04/12/18 04:30 Estimated GFR > 60 04/12/18 04:30 Glucose 114 mg/dL (70-100) H 04/12/18 04:30 POC Lactic Acid Sushil 1.8 mmol/L (0.7-2.1) D 04/08/18 08:47 Calcium 8.0 mg/dL (8.5-10.4) L 04/12/18 04:30 Magnesium 2.2 mg/dL (1.6-2.3) 04/12/18 04:30 Total Bilirubin 0.5 mg/dL (0.1-1.4) 04/12/18 04:30 AST 14 IU/L (14-46) 04/12/18 04:30 ALT 29 IU/L (9-52) 04/12/18 04:30 Alkaline Phosphatase 86 IU/L (38-126) 04/12/18 04:30 Lactate Dehydrogenase 916 IU/L (313-618) H 04/12/18 10:13 NT-Pro-B Natriuret Pep 86198 pg/mL (0-125) H 04/09/18 10:30 Total Protein 4.7 g/dL (6.3-8.2) L 04/12/18 04:30 Albumin 2.4 g/dL (3.5-5.0) L 04/12/18 04:30 Vitamin B12 > 1000 pg/mL (239-931) H 04/11/18 17:45 TSH 0.242 uIU/mL (0.465-4.680) L 04/08/18 06:00 Urine Color YELLOW 04/08/18 06:56 Urine Appearance MODERATELY TURBID 04/08/18 06:56 Urine pH 7.0 (5.0-7.5) 04/08/18 06:56 Ur Specific [place] 1.012 (1.002-1.030) 04/08/18 06:56 Urine Protein 1+ (NEGATIVE) H 04/08/18 06:56 Urine Ketones NEGATIVE (NEGATIVE) 04/08/18 06:56 Urine Blood NEGATIVE (NEGATIVE) 04/08/18 06:56 Urine Nitrate NEGATIVE (NEGATIVE) 04/08/18 06:56 Urine Bilirubin NEGATIVE (NEGATIVE) 04/08/18 06:56 Urine Urobilinogen 4.0 EU (0.2-1.0) H 04/08/18 06:56 Ur Leukocyte Esterase 3+ (NEGATIVE) H 04/08/18 06:56 Urine RBC 15-25 /hpf (0-3) H 04/08/18 06:56 Urine WBC 50-182 /hpf (0-3) H 04/08/18 06:56 Ur Epithelial Cells 1+ /lpf (NONE-1+) 04/08/18 06:56 Urine Glucose NEGATIVE (NEGATIVE) 04/08/18 06:56 Stool Occult Bld Scrn NEGATIVE (NEGATIVE) 04/10/18 12:14 Patient ABO/Rh A NEGATIVE 04/10/18 09:21 Antibody Screen NEGATIVE 04/10/18 09:21 Crossmatch IS Only See Detail 04/10/18 09:21 Visualized and Interpreted Chest x-ray results: Yes Chest X-ray Interpretation: other (Cardiomegaly, left pleural effusion possible related to a consolidation) Visualized and Interpreted EKG results: Yes EKG additional interpertation: Sinus tachycardia, low-voltage in the limb leads , late R-wave progression, diffuse T-wave inversion suggestive of ischemia in the inferior and anterolateral leads Telemetry: Sinus rhythm. Echocardiogram: There is a full and separately dictated report on the chart. Her ejection fraction is 20%. She has global hypokinesis with akinesis of segments subtended by the LAD. She has no significant valvular insufficiency or stenosis. Her right ventricle appears to be mildly dilated with severe hypokinesis. She has severely elevated estimated right ventricular systolic pressures in excess of 70 mmHg. A/P Assessment: 62-year-old female with known CAD and previous PCI of a diagonal branch back in 2013 currently admitted to the hospital after having been found confused and combative. During her hospitalization she has developed respiratory failure and signs/symptoms consistent with congestive heart failure. She has a left pleural effusion noted on her chest x-ray. Additionally, her brain atretic peptide levels are elevated. This prompted performance of an echocardiogram which demonstrates a new cardiomyopathy with segmental wall motion abnormalities suggesting ischemia in the territory of the LAD. Fortunately, she has been hemodynamically stable and really has not manifested any substantial symptoms. She is already being treated with metoprolol. She is not on systemic anticoagulation or aspirin given her recent history of GI bleeding. I did speak to Dr. Edwina Nazario from Oncology regarding her overall prognosis which is estimated to be between 6 and 12 months. Additionally, she appears hemodynamically stable and comfortable. Therefore, I do not think that we need to proceed with an aggressive/invasive workup and management strategy. I think that we can simply manage her conservatively with medical therapy. I think this provides advantages and the fact that she would not need to be subjected to coronary angiography and possible stenting. Furthermore, if we proceed with an invasive strategy this would mandate the use of anti-platelet therapies which , given her recent GI bleeding, would be contraindicated. Plan: 1. She has already been started on metoprolol. 2. I would like to start her on a low-dose of diuretics. I will begin Lasix 20 mg daily. 3. I will place her on a low-dose of lisinopril 2.5 mg daily. 4. We will plan to carefully follow her electrolytes on a daily basis and reassess her clinically. 5. Here in the near future we can consider instituting some form of anti- platelet therapy depending on her clinical course and the risk benefit ratio in the setting of her recent GI bleed.
[2018-04-12] MEDS: LISINOPRIL 2.5 MG TAB PO SCH (15:22)
[2018-04-12] MEDS: FUROSEMIDE 20 MG TAB PO SCH (15:22)
--- NOTE | 2018-04-12 16:08 | PDRADPN ---
Radiology Procedure Note Date of Procedure: 04/12/18 Radiologist: James Griffin Anesthesia: Local (Specify) Pre-op Diagnosis: left pleural effusion Post-op Diagnosis: same Indication: dx/tx Procedure: US guided thoracentesis Finding(s): 400mL of clear fluid removed. Inf/Abcess present in the surg proc area at time of surgery?: No Complications: none apparent Specimen(s): 400mL submitted for lab evaluation
[2018-04-13] MEDS: METOPROLOL TARTRATE 5 MG/5 ML INJ IVP SCH ×4 (00:56→17:50)
[2018-04-13] MEDS: PIPERACILLIN/TAZO 3.375 GM/DEX 50 ML IV SCH ×5 (00:56→23:59)
[2018-04-13] MEDS: LORazepam 2 MG/ML INJ IVP PRN ×2 (01:00→22:12)
[2018-04-13] MEDS: POTASSIUM Cl (KCl) 50 ML IV SCH ×3 (02:14→03:33)
[2018-04-13] MEDS: DEXMEDETOMIDINE HCL 400 MCG in NS 100 ML IV SCH ×3 (02:45→04:02)
[2018-04-13] MEDS: PANTOPRAZOLE SODIUM 40 MG VIAL IVP SCH ×4 (04:02→21:17)
[2018-04-13 07:13] LABS: INR 1.37 (0.83-1.16)
[2018-04-13] MEDS: methylPREDNISolone SOD SUCC 40 MG/ML VIAL IVP SCH (07:27)
--- NOTE | 2018-04-13 09:06 | PDINTPN ---
Charge Accounts Audit Clerk Progress Note Assessment/Plan: Assessment/plan: * Altered mental status. Consistent with acute delirium. Continues to improve * UTI: Resolved * Pneumonia with large pleural effusion-now on Zosyn * Pleural effusion-transudative -await cultures * GI bleed-upper endoscopy was negative. Likely lower GI source * Acute blood-loss anemia-status post transfusion -will follow H&H closely * COPD, ongoing tobacco abuse. Stable * Congestive heart failure-ejection fraction low. -per Cardiology * History of small cell lung cancer. Has been on treatment for this for the last 5 months, receiving chemotherapy. Her tumor mass in the left lower lobe has responded nicely. Followed by Oncology. * History of previous pulmonary embolism. On long-term anticoagulation. On heparin 10,000 units three times daily. Coumadin on hold. * Anemia: Hematocrit 22 today, without evidence of active ongoing bleeding. Will follow. * GI prophylaxis: On pantoprazole. * Metabolic: No issues currently identified. * History of multiple medical problems as outlined previously, stable. * PT/OT * Speech * Out of bed to chair * Disposition-likely okay for transfer to floor Subjective: Sitting up in bed. Comfortable. Conversant. Denies any current pain. Objective: Vital Signs Temp Pulse Resp BP Pulse Ox 36.4 C 95 24 H 123/83 H 92 04/13/18 08:00 04/13/18 08:00 04/13/18 08:00 04/13/18 08:00 04/13/18 08:00 Microbiology 04/12/18 15:50 Gram Stain - Final Thoracic Fluid - Aspirate Laboratory Results 04/12/18 04:30 04/13/18 06:50 04/12/18 04/13/18 04/14/18 05:59 05:59 05:59 Intake Total 1486 2141.2 Output Total 905 1280 Balance 581 861.2 PT 17.0 SEC (12.0-15.0) H 04/13/18 06:50 INR 1.37 (0.83-1.16) H 04/13/18 06:50 - Time Spent With Patient Time Spent With Patient: 35 min of time spent with patient, over 1/2 involved with coordination of care or counseling Case discussed with hospitalist and nursing Physical Exam - Physical Exam General Appearance: alert, no apparent distress EENT: PERRL/EOMI Neck: non-tender, full range of motion, supple, normal inspection Respiratory: crackles (Bibasilar), No respiratory distress, No wheezing Cardiac/Chest: normal peripheral pulses, systolic murmur Abdomen: normal bowel sounds, non-tender, soft Pelvic Exam: deferred Rectal: deferred Skin: normal color, warm/dry Extremities: non-tender Neuro/Psych: alert ICD10 Worksheet Patient Problems: Problems Problem Status Onset Altered mental status Acute Hypokalemia Acute Leukocytosis Acute Severe sepsis Acute Small cell lung cancer Acute Tachycardia Acute Urinary tract infection Acute Chronic obstructive pulmonary disease with acute exacerbation Acute Coronary artery disease Acute Influenza A Acute NSTEMI (non-ST elevated myocardial infarction) Acute Pneumonia Acute Pulmonary embolism Acute
[2018-04-13] MEDS: METOPROLOL TARTRATE 25 MG TAB PO SCH (09:35)
[2018-04-13] MEDS: NICOTINE 21 MG/24 HR PATCH TD SCH (09:35)
[2018-04-13] MEDS: FUROSEMIDE 20 MG TAB PO SCH (09:36)
[2018-04-13] MEDS: LISINOPRIL 2.5 MG TAB PO SCH (09:36)
[2018-04-13] MEDS: oxyCODONE IR 15 MG TAB PO PRN ×2 (09:38→19:58)
[2018-04-13] MEDS ORDERED: POTASSIUM Cl (KCl) 50 ML IV ONE ×2 (10:01→14:44)
--- NOTE | 2018-04-13 11:51 | ASMTCMCOM ---
CM Note CM Note Notes: Patient's mentation continues to wax and wane although is generally trending toward improvement. Today, Júnior from Palliative met [facility] patient and but deferred official palliative care consult until proxy appointed. I confirmed with Dr Wright that patient does indeed lack decisional capacity. Marianne from Ethics completed proxy paperwork, appointing patient's Jono as proxy. There is no other family of consequence (patient has an estranged daughter and and an estranged brother). Palliative consult to follow. Case Management will follow. Date Signed: 04/13/2018 11:50 AM Electronically Signed By:Devi Hope RN
--- NOTE | 2018-04-13 13:08 | HOSPPROG ---
Hospitalist Progress Note Assessment/Plan: DIAGNOSES: # ACUTE ENCEPHALOPATHY, MULTIFACTORIAL * Remains very confused disoriented, unplugged her PICC line from TPN, constantly trying to get up out of chair despite high fall risk * She is not competent for medical decision making, palliative care discussion, or other decision making # ACUTE HYPOXEMIC RESPIRATORY FAILURE WITH CHRONIC RESPIRATORY FAILURE AND COPD * Slow improvement continues, better today than yesterday # ACUTE PNEUMONIA * Currently on Zosyn for this # SEVERE ISCHEMIC CARDIOMYOPATHY EJECTION FRACTION 20% MULTIPLE WALL MOTION ABNORMALITIES * Picture is suggestive of ischemic disease # ACUTE UPPER GI BLEED OF UNCERTAIN ORIGIN WITH MELENIC STOOLS * Endoscopy findings include chronic gastritis and an esophageal ulcer which was injected # ACUTE ANEMIA, COMBINATION OF POST HEMORRHAGIC ANEMIA, AND MACROCYTIC ANEMIA DUE TO HER CANCER * Status post 1 unit packed red blood cells # LARGE BILATERAL PLEURAL EFFUSIONS # ACUTE PYURIA OF UNCERTAIN SOME ETIOLOGY AND SIGNIFICANCE, NEGATIVE URINE CULTURE # 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 # HISTORY OF BIPOLAR DISORDER PLANS: * Continue management of acute respiratory failure with bronchodilators, steroid and antibiotics and pulmonary toilet * Follow blood cultures closely * At this point given her limited prognosis with her metastatic cancer, and her poor functional status making treatment difficult, the decision is made to treat her cardiac issues with medication and to not currently pursue angiography or consideration of interventional measures * Continue to minimize medications and other factors that would aggravate her delirium, support sleep nutrition etc * Physical therapy and occupational therapy, increase activity as able * Continue acid suppression with proton pump inhibitor for now * PT and OT * No medicinal DVT prophylaxis at this time due to upper GI bleed and anemia * Palliative conversations with the patient and family would be appropriate, the patient would not really be able to participate at this time * At this point needing ongoing ICU care due to intensity of nursing due to her confusion and hyperactivity with high fall risk and with her interfering with safe use of medical devices including PICC line Seen by me today on hospitals rounds as well as multidisciplinary rounds I reviewed in detail with Dr. Alonso Wright and with Dr. Russell Ricardo SUBJECTIVE: Less short of breath today She is fairly confused and being very oppositional with nurses regarding basic nursing care and safety issues OBJECTIVE Vitals reviewed: No fever since yesterday morning, still some tachypnea otherwise [employer], my review: Stable vitals all sinus Exam: alert quite agitated hyperactive, uncooperative with nurses, confused and disoriented skin warm dry color ok resps not labored lungs still cedeño at bases heart regular abd soft nondistended nontender, bowel sounds present limbs warm, no edema iv site ok Laboratory data: INR 1.3 Potassium magnesium normal Microbiology: Urine and blood cultures remain negative to date Objective: Vital Signs Temp Pulse Resp BP Pulse Ox 36.4 C 112 H 18 127/94 H 92 04/13/18 08:00 04/13/18 12:00 04/13/18 12:00 04/13/18 12:00 04/13/18 12:00 Microbiology 04/12/18 15:50 Gram Stain - Final Thoracic Fluid - Aspirate 04/08/18 09:00 Blood Culture - Final Blood Laboratory Results 04/12/18 04:30 04/13/18 06:50 04/12/18 04/13/18 04/14/18 06:59 06:59 06:59 Intake Total 1486 2141.2 240 Output Total 905 1280 190 Balance 581 861.2 50 PT 17.0 SEC (12.0-15.0) H 04/13/18 06:50 INR 1.37 (0.83-1.16) H 04/13/18 06:50 - Time Spent With Patient Time Spent with Patient: greater than 35 minutes Time Spent with Patient: Greater than 35 minutes spent on this patients care, greater than 50% of time spent counseling, educating, and coordinating care regarding the above mentioned plan. ICD10 Worksheet Patient Problems: Problems Problem Status Onset Altered mental status Acute Hypokalemia Acute Leukocytosis Acute Severe sepsis Acute Small cell lung cancer Acute Tachycardia Acute Urinary tract infection Acute Chronic obstructive pulmonary disease with acute exacerbation Acute Coronary artery disease Acute Influenza A Acute NSTEMI (non-ST elevated myocardial infarction) Acute Pneumonia Acute Pulmonary embolism Acute
[2018-04-13] MEDS ORDERED: OLANZapine 5 MG TAB PO ONE (13:12)
--- NOTE | 2018-04-13 13:14 | HOSPPROG ---
Hospitalist Progress Note Assessment/Plan: DIAGNOSES: # ACUTE ENCEPHALOPATHY, MULTIFACTORIAL * Multifactorial, including acute illness, ICU patient, history of bipolar disorder, etc * TSH is a bit low, uncertain if that truly represents hyperthyroidism; will recheck that along with T3 in 4; B12 is normal * Remains very confused disoriented, unplugged her PICC line from TPN, constantly trying to get up out of chair despite high fall risk * She is not competent for medical decision making, palliative care discussion, or other decision making # ACUTE HYPOXEMIC RESPIRATORY FAILURE WITH CHRONIC RESPIRATORY FAILURE AND COPD * Slow improvement continues, better today than yesterday # ACUTE PNEUMONIA * Currently on Zosyn for this # SEVERE ISCHEMIC CARDIOMYOPATHY EJECTION FRACTION 20% MULTIPLE WALL MOTION ABNORMALITIES * Picture is suggestive of ischemic disease # ACUTE UPPER GI BLEED OF UNCERTAIN ORIGIN WITH MELENIC STOOLS * Endoscopy findings include chronic gastritis and an esophageal ulcer which was injected # ACUTE ANEMIA, COMBINATION OF POST HEMORRHAGIC ANEMIA, AND MACROCYTIC ANEMIA DUE TO HER CANCER * Status post 1 unit packed red blood cells # LARGE BILATERAL PLEURAL EFFUSIONS # ACUTE PYURIA OF UNCERTAIN SOME ETIOLOGY AND SIGNIFICANCE, NEGATIVE URINE CULTURE # 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 # HISTORY OF BIPOLAR DISORDER PLANS: * Continue management of acute respiratory failure with bronchodilators, steroid and antibiotics and pulmonary toilet * Follow blood cultures closely * At this point given her limited prognosis with her metastatic cancer, and her poor functional status making treatment difficult, the decision is made to treat her cardiac issues with medication and to not currently pursue angiography or consideration of interventional measures * Continue to minimize medications and other factors that would aggravate her delirium, support sleep nutrition etc * Recheck TSH along with free T3 and free T4 * Physical therapy and occupational therapy, increase activity as able * Continue acid suppression with proton pump inhibitor for now * PT and OT * No medicinal DVT prophylaxis at this time due to upper GI bleed and anemia * Palliative conversations with the patient and family would be appropriate, the patient would not really be able to participate at this time * At this point needing ongoing ICU care due to intensity of nursing due to her confusion and hyperactivity with high fall risk and with her interfering with safe use of medical devices including PICC line Seen by me today on hospitals rounds as well as multidisciplinary rounds I reviewed in detail with Dr. Alonso Wright and with Dr. Russell Ricardo SUBJECTIVE: Less short of breath today She is fairly confused and being very oppositional with nurses regarding basic nursing care and safety issues OBJECTIVE Vitals reviewed: No fever since yesterday morning, still some tachypnea otherwise Structural Drafter, my review: Stable vitals all sinus Exam: alert quite agitated hyperactive, uncooperative with nurses, confused and disoriented skin warm dry color ok resps not labored lungs still cedeño at bases heart regular abd soft nondistended nontender, bowel sounds present limbs warm, no edema iv site ok Laboratory data: INR 1.3 Potassium magnesium normal Microbiology: Urine and blood cultures remain negative to date Objective: Vital Signs Temp Pulse Resp BP Pulse Ox 36.4 C 112 H 18 127/94 H 92 04/13/18 08:00 04/13/18 12:00 04/13/18 12:00 04/13/18 12:00 04/13/18 12:00 Microbiology 04/12/18 15:50 Gram Stain - Final Thoracic Fluid - Aspirate 04/08/18 09:00 Blood Culture - Final Blood Laboratory Results 04/12/18 04:30 04/13/18 06:50 04/12/18 04/13/18 04/14/18 06:59 06:59 06:59 Intake Total 1486 2141.2 240 Output Total 905 1280 190 Balance 581 861.2 50 PT 17.0 SEC (12.0-15.0) H 04/13/18 06:50 INR 1.37 (0.83-1.16) H 04/13/18 06:50 - Time Spent With Patient Time Spent with Patient: greater than 35 minutes Time Spent with Patient: Greater than 35 minutes spent on this patients care, greater than 50% of time spent counseling, educating, and coordinating care regarding the above mentioned plan. ICD10 Worksheet Patient Problems: Problems Problem Status Onset Altered mental status Acute Hypokalemia Acute Leukocytosis Acute Severe sepsis Acute Small cell lung cancer Acute Tachycardia Acute Urinary tract infection Acute Chronic obstructive pulmonary disease with acute exacerbation Acute Coronary artery disease Acute Influenza A Acute NSTEMI (non-ST elevated myocardial infarction) Acute Pneumonia Acute Pulmonary embolism Acute
--- NOTE | 2018-04-13 14:21 | SOAPPROG ---
SOAP Progress Note Assessment/Plan: Assessment: - change in mental status - better today- results of MRI reviewed,small petechial hemorrhage r parietal.Etiology unclear - - small cell ca lung - s/p 5 cycles of chemo. -GI bleed, esophageal ulcer noted on UGI endo, Hct stable - cardiomyopathy, probably ischemic Plan: Continue supportive care, LP deferred given improved ms, although she remains fairly confused. Case discussed with cardiology, she did not receive cardiotoxic drugs as part of her chemotherapy. She had a limited stage small cell lung cancer in good remission at this time, life expectancy 6-12 months, perhaps more, small cure rate 04/10/18 12:06 04/11/18 11:45 04/12/18 09:57 04/13/18 14:17 Objective: Vital Signs Temp Pulse Resp BP Pulse Ox 97.5 F 112 H 18 127/94 H 92 04/13/18 08:00 04/13/18 12:00 04/13/18 12:00 04/13/18 12:00 04/13/18 12:00 Microbiology 04/12/18 15:50 Gram Stain - Final Thoracic Fluid - Aspirate 04/08/18 09:00 Blood Culture - Final Blood Laboratory Results 04/12/18 04:30 04/12/18 04/13/18 04/14/18 05:59 05:59 05:59 Intake Total 1486 2141.2 240 Output Total 905 1280 290 Balance 581 861.2 -50 PT 17.0 SEC (12.0-15.0) H 04/13/18 06:50 INR 1.37 (0.83-1.16) H 04/13/18 06:50 ICD10 Worksheet Patient Problems: Problems Problem Status Onset Altered mental status Acute Hypokalemia Acute Leukocytosis Acute Severe sepsis Acute Small cell lung cancer Acute Tachycardia Acute Urinary tract infection Acute Chronic obstructive pulmonary disease with acute exacerbation Acute Coronary artery disease Acute Influenza A Acute NSTEMI (non-ST elevated myocardial infarction) Acute Pneumonia Acute Pulmonary embolism Acute
[2018-04-13] MEDS ORDERED: POTASSIUM CL 10 MEQ TAB PO ONE (15:00)
[2018-04-13] MEDS: OLANZapine 5 MG TAB PO SCH (21:17)
[2018-04-13] MEDS: LOPERAMIDE HCL 2 MG CAP PO PRN (22:06)
[2018-04-13] MEDS: CEPACOL LOZENGE PO PRN (22:41)
[2018-04-13] MEDS ORDERED: HALOPERIDOL LACT 5 MG/ML INJ IVP ONE (23:43)
[2018-04-14] MEDS: METOPROLOL TARTRATE 5 MG/5 ML INJ IVP SCH ×2 (00:01→05:43)
[2018-04-14] MEDS ORDERED: LORazepam 2 MG/ML INJ IVP ONE (01:15)
[2018-04-14] MEDS: POTASSIUM Cl (KCl) 50 ML IV SCH ×3 (01:54→03:30)
[2018-04-14] MEDS: PANTOPRAZOLE SODIUM 40 MG VIAL IVP SCH ×4 (04:17→20:45)
[2018-04-14] MEDS: PIPERACILLIN/TAZO 3.375 GM/DEX 50 ML IV SCH ×3 (05:47→18:06)
[2018-04-14 06:27] LABS: INR 1.29 (0.83-1.16); PROTIME(PATIENT) 16.3 SEC (12.0-15.0)
[2018-04-14] MEDS: NICOTINE 21 MG/24 HR PATCH TD SCH (10:17)
[2018-04-14] MEDS: METOPROLOL TARTRATE 25 MG TAB PO SCH (10:18)
[2018-04-14] MEDS: FUROSEMIDE 20 MG TAB PO SCH (10:18)
[2018-04-14] MEDS: oxyCODONE IR 15 MG TAB PO PRN (10:47)
[2018-04-14] MEDS: LISINOPRIL 5 MG TAB PO SCH (10:48)
[2018-04-14] MEDS: LOPERAMIDE HCL 2 MG CAP PO PRN (10:48)
[2018-04-14] MEDS: LISINOPRIL 2.5 MG TAB PO SCH (10:58)
[2018-04-14] MEDS ORDERED: POTASSIUM Cl (KCl) 50 ML IV ONE (12:48)
[2018-04-14] MEDS ORDERED: POTASSIUM Cl (KCl) 100 ML IV ONE (13:00)
--- NOTE | 2018-04-14 13:24 | SOAPPROG ---
SOAP Progress Note Assessment/Plan: Assessment: - change in mental status - remains confused- results of MRI reviewed,small petechial hemorrhage r parietal.Etiology unclear - - small cell ca lung - s/p 5 cycles of chemo. -GI bleed, esophageal ulcer noted on UGI endo, Hct stable - cardiomyopathy, probably ischemic Plan: Continue supportive care, LP deferred given improved ms, although she remains fairly confused. Case discussed with cardiology, she did not receive cardiotoxic drugs as part of her chemotherapy. She had a limited stage small cell lung cancer in good remission at this time, life expectancy 6-12 months, perhaps more, small cure rate 04/10/18 12:06 04/11/18 11:45 04/12/18 09:57 04/13/18 14:17 04/14/18 13:23 Subjective: sleeping Objective: Vital Signs Temp Pulse Resp BP Pulse Ox 98.1 F 93 22 H 113/87 H 88 L 04/14/18 12:02 04/14/18 12:02 04/14/18 12:02 04/14/18 12:02 04/14/18 12:02 Microbiology 04/12/18 15:50 Gram Stain - Final Thoracic Fluid - Aspirate 04/08/18 09:00 Blood Culture - Final Blood Laboratory Results 04/12/18 04:30 04/14/18 05:58 04/13/18 04/14/18 04/15/18 05:59 05:59 05:59 Intake Total 2141.2 1708 Output Total 1280 1210 1300 Balance 861.2 498 -1300 PT 16.3 SEC (12.0-15.0) H 04/14/18 05:58 INR 1.29 (0.83-1.16) H 04/14/18 05:58 ICD10 Worksheet Patient Problems: Problems Problem Status Onset Altered mental status Acute Hypokalemia Acute Leukocytosis Acute Severe sepsis Acute Small cell lung cancer Acute Tachycardia Acute Urinary tract infection Acute Chronic obstructive pulmonary disease with acute exacerbation Acute Coronary artery disease Acute Influenza A Acute NSTEMI (non-ST elevated myocardial infarction) Acute Pneumonia Acute Pulmonary embolism Acute
[2018-04-14] MEDS ORDERED: PROTOCOL POTASSIUM 1 DOSE MISC PRN (15:00)
--- NOTE | 2018-04-14 17:32 | HOSPPROG ---
Hospitalist Progress Note Assessment/Plan: DIAGNOSES: # ACUTE ENCEPHALOPATHY, MULTIFACTORIAL * Multifactorial, including acute illness, ICU patient, history of bipolar disorder, etc * Recheck of TSH shows it to be normal, B12 normal * On review of her medications here she has a 30 mg Oxy IR p.r.n. Breakthrough pain medicine and has received that twice yesterday and once so far today; also has orders for p.r.n. IV Dilaudid and for Ativan p.r.n., neither which have been given today but have been given occasionally during this hospital stay. Her home medicine orders have included MS Contin 15 mg twice daily which she is not receiving here and oxycodone 30 mg as often as three times daily for breakthrough pain. At this point all these medicines will clearly aggravate her acute delirium # ACUTE HYPOXEMIC RESPIRATORY FAILURE WITH CHRONIC RESPIRATORY FAILURE AND COPD * Slow improvement continues, better today than yesterday # ACUTE PNEUMONIA * Currently on Zosyn for this # SEVERE ISCHEMIC CARDIOMYOPATHY EJECTION FRACTION 20% MULTIPLE WALL MOTION ABNORMALITIES * Picture is suggestive of ischemic disease # ACUTE UPPER GI BLEED OF UNCERTAIN ORIGIN WITH MELENIC STOOLS * Endoscopy findings include chronic gastritis and an esophageal ulcer which was injected # ACUTE ANEMIA, COMBINATION OF POST HEMORRHAGIC ANEMIA, AND MACROCYTIC ANEMIA DUE TO HER CANCER * Status post 1 unit packed red blood cells # LARGE BILATERAL PLEURAL EFFUSIONS # ACUTE PYURIA OF UNCERTAIN SOME ETIOLOGY AND SIGNIFICANCE, NEGATIVE URINE CULTURE # 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 # HISTORY OF BIPOLAR DISORDER PLANS: * Continue management of acute respiratory failure with bronchodilators, steroid and antibiotics and pulmonary toilet * Follow blood cultures closely * At this point given her limited prognosis with her metastatic cancer, and her poor functional status making treatment difficult, the decision is made to treat her cardiac issues with medication and to not currently pursue angiography or consideration of interventional measures * Continue to minimize medications and other factors that would aggravate her delirium, support sleep nutrition etc; will discontinue current orders for Dilaudid and Ativan and will decrease the dosing for her short-acting oral narcotic and follow closely * Physical therapy and occupational therapy, increase activity as able * Continue acid suppression with proton pump inhibitor for now * PT and OT * No medicinal DVT prophylaxis at this time due to upper GI bleed and anemia * Will need ongoing in room sitter at this time * Will need to have further conversations with her family and with the Oncology team regarding goals of care SUBJECTIVE: States she feels better today Denies pain or shortness of breath or nausea Nurse has been with ongoing confusion, disorientation, needing constant attention with a the sitter in the room to keep her from potentially injury She did sleep through a fair part of the day after receiving some pain medicine for abdominal Pain OBJECTIVE Vitals reviewed: Was tachycardic through the day yesterday and most of last night but is now with more normal heart rate, other vitals stable without fever Exam: alert less agitated but remains disoriented, hyperactive, uncooperative with nurses, clearly at risk for fall or other injury or problems needing constant 1 on 1 sitter in the room skin warm dry color ok resps not labored lungs still cedeño at bases heart regular abd soft nondistended nontender, bowel sounds present limbs warm, no edema iv site ok Laboratory data: INR 1.3 Potassium magnesium normal Microbiology: Urine and blood cultures remain negative to date Objective: Vital Signs Temp Pulse Resp BP Pulse Ox 36.7 C 98 20 113/78 93 04/14/18 15:48 04/14/18 15:48 04/14/18 15:48 04/14/18 15:48 04/14/18 15:48 Microbiology 04/12/18 15:50 Gram Stain - Final Thoracic Fluid - Aspirate Laboratory Results 04/12/18 04:30 04/14/18 05:58 04/13/18 04/14/18 04/15/18 06:59 06:59 06:59 Intake Total 2141.2 1708 Output Total 1280 1210 2350 Balance 861.2 498 -2350 PT 16.3 SEC (12.0-15.0) H 04/14/18 05:58 INR 1.29 (0.83-1.16) H 04/14/18 05:58 ICD10 Worksheet Patient Problems: Problems Problem Status Onset Altered mental status Acute Hypokalemia Acute Leukocytosis Acute Severe sepsis Acute Small cell lung cancer Acute Tachycardia Acute Urinary tract infection Acute Chronic obstructive pulmonary disease with acute exacerbation Acute Coronary artery disease Acute Influenza A Acute NSTEMI (non-ST elevated myocardial infarction) Acute Pneumonia Acute Pulmonary embolism Acute
[2018-04-14] MEDS ORDERED: traMADol 50 MG TAB PO PRN (17:33)
[2018-04-14] MEDS: ACETAMINOPHEN 325 MG TAB PO PRN (18:03)
[2018-04-14] MEDS: oxyCODONE IR 5 MG TAB PO PRN (18:21)
[2018-04-14] MEDS: CEPACOL LOZENGE PO PRN (20:45)
[2018-04-14] MEDS: OLANZapine 5 MG TAB PO SCH (20:45)
[2018-04-14] MEDS ORDERED: POTASSIUM CL 10 MEQ TAB PO ONE (20:55)
[2018-04-15] MEDS: CEPACOL LOZENGE PO PRN ×3 (00:11→21:25)
[2018-04-15] MEDS: oxyCODONE IR 5 MG TAB PO PRN ×2 (02:48→21:23)
[2018-04-15] MEDS: PANTOPRAZOLE SODIUM 40 MG VIAL IVP SCH ×4 (04:05→21:52)
[2018-04-15 05:15] LABS: PLATELET COUNT 221 10^3/uL (150-400)
[2018-04-15 05:21] LABS: INR 1.31 (0.83-1.16); PROTIME(PATIENT) 16.5 SEC (12.0-15.0)
[2018-04-15] MEDS: PIPERACILLIN/TAZO 3.375 GM/DEX 50 ML IV SCH ×3 (05:55→14:09)
[2018-04-15] MEDS: METOPROLOL TARTRATE 25 MG TAB PO SCH (09:33)
[2018-04-15] MEDS: LISINOPRIL 5 MG TAB PO SCH (09:34)
[2018-04-15] MEDS: FUROSEMIDE 20 MG TAB PO SCH (09:34)
[2018-04-15] MEDS: NICOTINE 21 MG/24 HR PATCH TD SCH (09:44)
[2018-04-15] MEDS: ACETAMINOPHEN 325 MG TAB PO PRN (09:49)
[2018-04-15] MEDS ORDERED: POTASSIUM CL 10 MEQ TAB PO ONE ×4 (10:27→20:21)
[2018-04-15] MEDS ORDERED: MAGNESIUM SULF 1 GM/DEXTROSE 100 ML IV ONE ×2 (10:36→14:30)
--- NOTE | 2018-04-15 11:50 | ASMTCMCOM ---
TAMI Note TAMI Note Notes: Pt continues with acute encephalopathy. Spoke with her Jono. He is hoping pt will clear. He does not what she will need at DC until she gets back to baseline. TAMI navid continue to follow. Date Signed: 04/15/2018 11:49 AM Electronically Signed By:Razia Durbin LCSW
--- NOTE | 2018-04-15 16:00 | HOSPPROG ---
Hospitalist Progress Note Assessment/Plan: DIAGNOSES: # ACUTE ENCEPHALOPATHY, MULTIFACTORIAL * Remarkably better today likely due to decrease in medications for pain, and notably her pain is no worse * Multifactorial, including acute illness, ICU patient, history of bipolar disorder, etc * Recheck of TSH shows it to be normal, B12 normal # ACUTE HYPOXEMIC RESPIRATORY FAILURE WITH CHRONIC RESPIRATORY FAILURE AND COPD * Slow improvement continues, better today than yesterday # ACUTE PNEUMONIA with PARAPNEUMONIC EFFUSION, status post thoracentesis * Currently on Zosyn for this # SEVERE ISCHEMIC CARDIOMYOPATHY EJECTION FRACTION 20% MULTIPLE WALL MOTION ABNORMALITIES * Picture is suggestive of ischemic disease # ACUTE UPPER GI BLEED OF UNCERTAIN ORIGIN WITH MELENIC STOOLS * Endoscopy findings include chronic gastritis and an esophageal ulcer which was injected # ACUTE ANEMIA, COMBINATION OF POST HEMORRHAGIC ANEMIA, AND MACROCYTIC ANEMIA DUE TO HER CANCER * Status post 1 unit packed red blood cells # ACUTE PYURIA OF UNCERTAIN SOME ETIOLOGY AND SIGNIFICANCE, NEGATIVE URINE CULTURE # 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 # HISTORY OF BIPOLAR DISORDER I had a lengthy discussion with the patient and her at the bedside regarding her progress, plans for home care, as well as follow-up care. We talked also at length about the role of her pain medicines in her delirium and the follow-up that she will need for ongoing management of pain in the future. I have recommended that she consider trial of TENS unit and other non medicinal therapies which she has not tried yet, and possibly some other nonnarcotic medicines that she has not tried yet. PLANS: * Repeat chest x-ray to make sure that pleural fluid not reaccumulated * Continue PT OT therapies, fall risk precautions * Continue management of acute respiratory failure with bronchodilators, steroid and antibiotics and pulmonary toilet * At this point given her limited prognosis with her metastatic cancer, and her poor functional status making treatment difficult, the decision is made to treat her cardiac issues with medication and to not currently pursue angiography or consideration of interventional measures * Continue to minimize medications and other factors that would aggravate her delirium, support sleep nutrition etc; notably she seems to be doing better today with decreased narcotic and interestingly has less than her usual chronic pain * Continue acid suppression with proton pump inhibitor for now * No medicinal DVT prophylaxis at this time due to upper GI bleed and anemia * Possibly home tomorrow if continues to do well SUBJECTIVE: Feels much better today feels less confused Eating well, no shortness of breath Remarkably she does not have much pain despite significant decreases in pain medicines, has been on prescribed narcotics with daily use same doses for 9 years prior to this admission OBJECTIVE Vitals reviewed: Still some intermittent tachycardia otherwise normal without fever Exam: alert much better oriented today, much more alert and normally interactive, not agitated, much more cooperative with nursing care, has not needed sitter in the room at all today skin warm dry color ok resps not labored lungs still cedeño at bases heart regular abd soft nondistended nontender, bowel sounds present limbs warm, no edema iv site ok Laboratory data: Hemoglobin increased today Metabolic panel unremarkable Microbiology: Urine and blood cultures remain negative to date Objective: Vital Signs Temp Pulse Resp BP Pulse Ox 36.6 C 105 H 16 112/89 H 92 04/15/18 07:40 04/15/18 07:40 04/15/18 07:40 04/15/18 07:40 04/15/18 07:40 Microbiology 04/12/18 15:50 Gram Stain - Final Thoracic Fluid - Aspirate Body Fluid Culture - Final Laboratory Results 04/15/18 04:41 04/15/18 14:00 04/14/18 04/15/18 04/16/18 06:59 06:59 06:59 Intake Total 1708 1350 Output Total 1210 2350 900 Balance 498 -1000 -900 PT 16.5 SEC (12.0-15.0) H 04/15/18 04:41 INR 1.31 (0.83-1.16) H 04/15/18 04:41 - Time Spent With Patient Time Spent with Patient: greater than 35 minutes Time Spent with Patient: Greater than 35 minutes spent on this patients care, greater than 50% of time spent counseling, educating, and coordinating care regarding the above mentioned plan. ICD10 Worksheet Patient Problems: Problems Problem Status Onset Altered mental status Acute Hypokalemia Acute Leukocytosis Acute Severe sepsis Acute Small cell lung cancer Acute Tachycardia Acute Urinary tract infection Acute Chronic obstructive pulmonary disease with acute exacerbation Acute Coronary artery disease Acute Influenza A Acute NSTEMI (non-ST elevated myocardial infarction) Acute Pneumonia Acute Pulmonary embolism Acute
[2018-04-15] MEDS: PIPERACILLIN SODIUM/TAZOBACTAM 3.375 GM in D5W 50 ML IV SCH (19:13)
[2018-04-15] MEDS: OLANZapine 5 MG TAB PO SCH (21:22)
[2018-04-16] MEDS: PIPERACILLIN SODIUM/TAZOBACTAM 3.375 GM in D5W 50 ML IV SCH ×3 (00:09→11:39)
[2018-04-16] MEDS: LOPERAMIDE HCL 2 MG CAP PO PRN (02:00)
[2018-04-16] MEDS: PANTOPRAZOLE SODIUM 40 MG VIAL IVP SCH ×2 (03:47→08:15)
[2018-04-16 04:02] LABS: PLATELET COUNT 237 10^3/uL (150-400)
[2018-04-16] MEDS: CEPACOL LOZENGE PO PRN (05:41)
[2018-04-16 07:44] VITALS: BP 124/86
[2018-04-16] MEDS: METOPROLOL TARTRATE 25 MG TAB PO SCH (08:15)
[2018-04-16] MEDS: LISINOPRIL 5 MG TAB PO SCH (08:15)
[2018-04-16] MEDS: FUROSEMIDE 20 MG TAB PO SCH (08:16)
--- NOTE | 2018-04-16 09:11 | SOAPPROG ---
SOAP Progress Note Assessment/Plan: Assessment: 1. Altered mental status-back to baseline. ? secondary to overmedication with pain meds. MRI with small petechial hemorrhage, etiology unclear, but not enough to explain symptoms. No evidence of brain metastasis. 2. Extensive stage small cell ca lung - s/p 5 cycles of chemo. She is due for her 6 th cycle this tuesday. 3. GI bleed, esophageal ulcer noted on UGI endo, Hct stable 4. cardiomyopathy, probably ischemic Plan: 1. Likely discharge today. 2. Patient is scheduled to see Dr. wesley this tuesday. Will discuss pros/ cons of doing last cycle of chemo. Subjective: feels back to baseline. Eager for discharge Objective: Vital Signs Temp Pulse Resp BP Pulse Ox 36.6 C 94 17 124/86 H 92 04/16/18 07:42 04/16/18 08:15 04/16/18 07:42 04/16/18 08:15 04/16/18 07:42 Microbiology 04/12/18 15:50 Gram Stain - Final Thoracic Fluid - Aspirate Body Fluid Culture - Final Laboratory Results 04/16/18 03:50 04/16/18 03:50 04/15/18 04/16/18 04/17/18 05:59 05:59 05:59 Intake Total 1350 1150 Output Total 2350 1450 Balance -1000 -300 PT 16.5 SEC (12.0-15.0) H 04/15/18 04:41 INR 1.31 (0.83-1.16) H 04/15/18 04:41 Physical Exam - Physical Exam General Appearance: alert, no apparent distress Respiratory: other (bilateral rhonchi) Abdomen: non-tender, soft ICD10 Worksheet Patient Problems: Problems Problem Status Onset Altered mental status Acute Hypokalemia Acute Leukocytosis Acute Severe sepsis Acute Small cell lung cancer Acute Tachycardia Acute Urinary tract infection Acute Chronic obstructive pulmonary disease with acute exacerbation Acute Coronary artery disease Acute Influenza A Acute NSTEMI (non-ST elevated myocardial infarction) Acute Pneumonia Acute Pulmonary embolism Acute
[2018-04-16] MEDS: NICOTINE 21 MG/24 HR PATCH TD SCH (09:54)
[2018-04-16] MEDS ORDERED: POTASSIUM CL 10 MEQ TAB PO ONE (12:15)
--- NOTE | 2018-04-16 13:52 | PDDCSUM ---
Discharge Summary Discharge Summary: DISCHARGE DIAGNOSES: # ACUTE ENCEPHALOPATHY, MULTIFACTORIAL, PRESENT ON ADMISSION, RESOLVED # ACUTE ON CHRONIC HYPOXEMIC RESPIRATORY FAILURE # ACUTE PNEUMONIA, COMMUNITY ACQUIRED, WITH PARAPNEUMONIC EFFUSION (TRANSUDATE) # CARDIOMYOPATHY EJECTION FRACTION 20% MULTIPLE WALL MOTION ABNORMALITIES SUGGESTING POSSIBLE ISCHEMIC CAUSE (NEW DIAGNOSIS AT THIS TIME) # ACUTE UPPER GI BLEED OF UNCERTAIN ORIGIN WITH MELENIC STOOLS # ESOPHAGEAL ULCER, SUSPECTED PEPTIC ETIOLOGY, ALONG WITH PEPTIC GASTRITIS # ACUTE ANEMIA, COMBINATION OF POST HEMORRHAGIC ANEMIA, AND MACROCYTIC ANEMIA DUE TO HER CANCER # ACUTE DEHYDRATION PRESENT ON AT ADMISSION # DIARRHEA WITHOUT EVIDENCE OF INFECTIOUS ETIOLOGY, ? IF DUE TO RECENT CHEMOTHERAPY # ACUTE PYURIA OF UNCERTAIN SOME ETIOLOGY AND SIGNIFICANCE, NEGATIVE URINE CULTURE # 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 # HISTORY OF BIPOLAR DISORDER CONSULTANTS: Dr. Russell Ricardo of Cardiology Dr. Anthony Wright of pulmonology critical care Dr. Edwina Nazario of Hematology Oncology PROCEDURES: Transfusion 1 unit of packed red blood cells Esophagogastroduodenoscopy showing gastritis and esophageal ulcer which was not bleeding at the time Echocardiogram CT scan of head MRI of brain HOSPITAL COURSE SUMMARY: This patient with known cancer on chemotherapy as well as other medical problems , presented with acute confusional state, weakness, shortness of breath and hypoxemia, and appeared dehydrated. She was diagnosed with a left lung pneumonia with a parapneumonic effusion which turned out to be transudative effusion. No organisms were identified on cultures or other testing. She also was fairly anemic and appeared to be having acute upper GI bleed with melenic stools. EGD was performed and showed a an esophageal ulcer as well as some gastritis. The ulcer was injected endoscopically. Notably she had recently been treated for presumed outpatient UTI and did have some pyuria on presentation but cultures were negative here and she did not have urinary symptoms specifically so this is of uncertain significance at the present. Is in syndrome with previous back injuries and has been on steady doses of prescribed narcotics for the past 9 years. Her meds included MS Contin 30 twice daily and oxycodone IR 30 three times daily. The patient was hydrated and fluid resuscitated, and treated with antibiotics for pneumonia. For COPD she received nebulized bronchodilators. She did have 400 mL of thoracentesis from her left chest and this was a transudative fluid with cultures negative. She tolerated this well. Gradually her respiratory failure resolved nicely. At this time she is breathing room air and up walking about in the hallway without any difficulty. She has completed what should be a full course of antibiotics for her infection so will not go home on antibiotics. At 1 point there was concern about possible heart failure though clinically she did not have evidence of volume overload. Nonetheless an echocardiogram was done and did show a severe cardiomyopathy with ejection fraction of 20% with a previous 60% ejection fraction. There were wall motion abnormalities suggesting possible ischemic disease that she had had no chest pain and there was no evidence of ischemic episode at this time. With these changes noted it was elected to start her on some Lasix and lisinopril and continue her metoprolol. A low sodium diet is recommended. Should be further assessed after follow-up in Cardiology Clinic. For her encephalopathy her pain medicines were dramatically reduced with discontinuation of the morphine and notable decrease in the dose of oxycodone. Other sedating medicines were avoided as possible and she was given adequate nutrition and activities. At this point with resolution of her infection and decreased pain meds, her encephalopathy has nearly completely resolved. Brain imaging did not show any evidence of metastatic disease stroke bleeding or other acute abnormalities to cause the symptoms. It is notable that despite the remarkable decreases in narcotic medicines which are chronic doses for her, her pain is actually better at this point that it has been for quite some time. She is up and ambulating without much discomfort. It will be recommended that she stay off of the morphine and stay on the lower dose of oxycodone for the time being and follow up closely with her prescribing physicians with adjustments made as needed. I did discuss with the patient and her that there are number of non medicinal therapies that I had for her that sounds like she has not tried or have actually worked in the past but she is not doing them anymore. In addition there it may be other very helpful narcotic medications for her. At the moment I do not think she needs any additional therapy acutely. As she was anemic and had melenic stools she had upper endoscopy and this showed a esophageal ulcer which was not bleeding at the time of the study but it was injected. There is also some gastritis. She is on that and will avoid nonsteroidal anti inflammatory medicines. Her blood counts did remain stable here after 1 initial transfusion. She has developed some loose stools without blood or pain or fever here. C diff was tested negative. Is unclear if this is due to her antibiotic or due to her chemotherapy but she is using Imodium to some advantage at this point and will continue that. PENDING TEST RESULTS: None MEDICATION CHANGES: Addition of Lasix 20 mg and lisinopril 5 mg daily Discontinuation of MS Contin Decrease in her dose of Oxy code own from 30 mg 3 times daily as needed to 15 mg 3 times daily as needed Addition of Imodium as needed for diarrhea FOLLOW-UP PLAN: With Dr. Glez in 3 days in Oncology Clinic With Dr. Russell Ricardo cardiology clinic within 2-3 weeks Greater than 35 minutes bedside and care coordination time today
--- NOTE | 2018-04-16 14:16 | ASDISCHSUM ---
Discharge Information Plan Status:Home with No Needs Medically Cleared to Leave:04/16/2018 Discharge Date:04/16/2018 CM D/C Disposition:Home, Routine, Self-Care ADT D/C Disposition:Home, Routine, Self-Care Projected Discharge Date:04/16/2018 Transportation at D/C:Family Discharge Delay Reason: Follow-Up Date:04/16/2018 Discharge Slot: Final Diagnosis:AMS, Lung CA Placement Information Patient Contact Information Contact Name:SWATI Relationship: Address:[address] Work Phone: City:[place] Alternate Phone: [facility]/Zip Code:[place] [address] Email: Financial Information Financial Class:Medicaid Primary Plan Desc[place] Primary Plan Number:[id number] Secondary Plan Desc: Secondary Plan Number: Assessment Information LACE LACE Acuity / Level of Answers: Yes Care: Did the patient have an inpatient admission? Comorbidities - select Answers: Any tumor (including all that apply lymphoma or leukemia) Chronic pulmonary disease History of falls Opioid dependence / Chronic pain Previous myocardial infarction # of Emergency department Answers: 1-2 visits in the last 6 months Score: 16 Date Signed: 04/08/2018 11:00 AM Electronically Signed By:Sarah Lindsay RN [facility] Progress Note CM Note CM Note Notes: Pt presented to the ED via EMS for AMS from home. Pt lives with her Jono Ariza ([phone]) and he states she became confused yesterday. Pt is disoriented and admitted for AMS, SIRS, severe sepsis, hypokalemia, UTI, possible PNA. Pt has small cell lung cancer and is currently receiving chemo. Pt is followed by Dr Glez at [facility]. Jono states pt has been having falls at home due to pt's weakness r/t chemo treatment, etc. Pt saw her PCP, at [facility] ([phone]), this past Tuesday and they discussed pt getting a walker. Pt does have a cane that she uses at home. Pt has home oxygen provided [employer]. Pt was discharged from [facility] in Oct 2017 w/HC RN to monitor her oxygen requirements etc but was discharged from after about a month. Jono states pt doesn't have an Advance Directive, Living Will, or MDPOA. Jono states they do not have any other family in the area other than the pt's brother who lives in [place], but it sounds like they do not stay in close contact. Jono said he was provided contact info for Edgardo Crowell RN [employer] ([phone]) at [facility], to discuss Palliative Care, but he has not reached out yet. Consider PC consult while pt is in hospital. Exact DC needs unknown. PT/OT/CAFE TEAM MEMBER ordered. CM to follow. Date Signed: 04/08/2018 11:23 AM Electronically Signed By:Sarah Lindsay RN [facility] Progress Note CM Note CM Note Notes: Patient may have lumbar puncture today to help determine cause of confusion. Support to patient's . Date Signed: 04/11/2018 03:00 PM Electronically Signed By:Tanisha Sosa LCSW [facility] CM Progress Note CM Note CM Note Notes: Patient's PCP, Ruthy's office called to say that she was staring to be more confused b/4 her admission, they were concerned about her nutrition at home and they were going to encourage Palliative Care. If patient goes home, CM could set up Meals on Wheels. Information given to Hospitalist. Date Signed: 04/11/2018 03:18 PM Electronically Signed By:Tanisha Sosa LCSW [facility] Progress Note CM Note CM Note Notes: Patient's mental status greatly improved today. She was able to work with PT/OT, who are both recommending SNF at this point. However, we have also ordered a Palliative Care consult, and this will also help with discharge planning. She is being followed by oncology, cardiology, pulmonology, and hospital medicine. Case Management will follow. Date Signed: 04/12/2018 12:54 PM Electronically Signed By:Devi Hope RN [facility] Progress Note CM Note CM Note Notes: Patient's mentation continues to wax and wane although is generally trending toward improvement. Today, Júnior from Palliative met [facility] patient and but deferred official palliative care consult until proxy appointed. I confirmed with Dr Wright that patient does indeed lack decisional capacity. Marianne from [employer] completed proxy paperwork, appointing patient's Jono as proxy. There is no other family of consequence (patient has an estranged daughter and and an estranged brother). Palliative consult to follow. Case Management will follow. Date Signed: 04/13/2018 11:50 AM Electronically Signed By:Devi Hope RN [facility] CM Progress Note CM Note CM Note Notes: Pt continues with acute encephalopathy. Spoke with her Jono. He is hoping pt will clear. He does not what she will need at [place] until she gets back to baseline. CM navid continue to follow. Date Signed: 04/15/2018 11:49 AM Electronically Signed By:Razia Durbin LCSW Case Management Discharge Plan Note Case Management Discharge Discharge Order Complete? Answers: Yes Patient to Obtain Answers: via Family Medications Transportation Arranged Answers: Family/Friends Discharge Comments Notes: 04/16/2018 Case Management Note Per MD note pt confusion has cleared and pt is back to baseline. Pt to discharge independent with follow up as directed. Date Signed: 04/16/2018 02:16 PM Electronically Signed By:Jeanne Tam RN Intervention Information
== END 2018-04-16 14:49 | disposition home or self-care (01) | DRG 52 ==
LOC: EDUNIT# → F2N 12:26 → F1N 04-14 09:00
PROVIDERS: ADMIT Family Medicine; ATTEND Family Medicine
PROC: 02HV33Z Insertion of Infusion Device into Superior Vena Cava, Percutaneous Approach (ICD-10-PCS; 2018-04-08)
PROC: 30233N1 Transfusion of Nonautologous Red Blood Cells into Peripheral Vein, Percutaneous Approach (ICD-10-PCS; 2018-04-10)
PROC: 0DB68ZX Excision of Stomach, Via Natural or Artificial Opening Endoscopic, Diagnostic (ICD-10-PCS; principal; 2018-04-10 10:45)
PROC: 3E0G8GC Introduction of Other Therapeutic Substance into Upper GI, Via Natural or Artificial Opening Endoscopic (ICD-10-PCS; principal; 2018-04-10 10:45)
PROC: 0W9B3ZX Drainage of Left Pleural Cavity, Percutaneous Approach, Diagnostic (ICD-10-PCS; 2018-04-12)
DX: G93.49 Other encephalopathy (principal); J96.21 Acute and chronic respiratory failure with hypoxia; J18.8 Other pneumonia, unspecified organism; J91.8 Pleural effusion in other conditions classified elsewhere; C78.5 Secondary malignant neoplasm of large intestine and rectum; K22.10 Ulcer of esophagus without bleeding; D62 Acute posthemorrhagic anemia; F11.20 Opioid dependence, uncomplicated; I42.9 Cardiomyopathy, unspecified; K92.2 Gastrointestinal hemorrhage, unspecified; K29.70 Gastritis, unspecified, without bleeding; D63.8 Anemia in other chronic diseases classified elsewhere; E86.0 Dehydration; R19.7 Diarrhea, unspecified; N39.0 Urinary tract infection, site not specified; C34.90 Malignant neoplasm of unspecified part of unspecified bronchus or lung; F31.9 Bipolar disorder, unspecified; J44.9 Chronic obstructive pulmonary disease, unspecified; G89.29 Other chronic pain; G62.9 Polyneuropathy, unspecified; E87.6 Hypokalemia; Z95.5 Presence of coronary angioplasty implant and graft; Z79.01 Long term (current) use of anticoagulants; Z86.711 Personal history of pulmonary embolism; K29.50 Unspecified chronic gastritis without bleeding
CPT/HCPCS: 82607-90; 83520-90; 83605-PO; 84481-90; 86256-90; 92526-GN; 92610-GN; 97116-GP; 97162-GP; 97166-GO; 97530-GP; 97535-GO; A9585; C1751; J0456; J0696; J1170; J1630; J1644; J1940; J2060; J2250; J2405; J2543; J2704; J2920; J3475; J3480; P9016

== ENCOUNTER 2018-07-29 19:52 | Emergency (ER) | payer MEDICAID ==
[2018-07-29 21:08] LABS: PLATELET COUNT 537 10^3/uL (150-400)
--- NOTE | 2018-07-29 21:14 | EDPHY ---
H & P Stated Complaint: L sided CP x1 week, L arm burning Time Seen by Provider: 07/29/18 20:29 HPI/ROS: CHIEF COMPLAINT: Chest and arm pain HISTORY OF PRESENT ILLNESS: This is a 62-year-old female with complex medical history that includes coronary artery disease status post stenting, small cell lung cancer and PE on Coumadin, COPD, and chronic pain/costochondritis. She presents today concerned about substernal and left-sided chest pain and a burning sensation along the inside of her left arm. The burning sensation extends from a region distal to the axilla and past the elbow. No trauma. She had a similar arm sensation when she had a myocardial infarction. The arm pain lasted for couple of hours and has now resolved. The chest pain also lasted for couple of hours. She applied a lidocaine patch and when she removed the patch the pain went away. In addition to the lidocaine patch she also tried taking oxycodone IR which she uses for her chronic pain. She does not feel short of breath. She does have a history of COPD and is using her inhalers as prescribed. She has not had fever. No cough. She tells me that she has urinary tract infection and was given a prescription for antibiotics but is not taking them. REVIEW OF SYSTEMS: A ten system review of systems was performed and is negative with the exception of the items mentioned in the HPI. Past medical history: 1. Coronary artery disease status post stenting 2. COPD 3. Small cell lung cancer 4. PE 5. Rectal carcinoid cancer status post resection 6. Chronic pain/costochondritis 7. Basal cell carcinoma 8. GERD Past surgical history: 1. Resection of rectal carcinoid 2. Brain surgery for aneurysm 3. Cholecystectomy 4. Right thumb surgery Social history: She lives with her . A neighbor accompanies her tonight. She continues to smoke cigarettes. General Appearance: Alert. Vital signs reviewed. HR 112, BP 96/81 recorded at triage. Eyes: Pupils equal and round, no conjunctival injection, no discharge. Anicteric. ENT, Mouth: Mucous membranes are moist, no oropharyngeal erythema or edema. Neck: No lymphadenopathy, supple. Respiratory: Lungs are clear to auscultation; no wheezes, rales, or rhonchi. Cardiovascular: Regular rate and rhythm; no murmur, rub, or gallop. Gastrointestinal: Abdomen is soft and nontender, no masses or organomegaly, bowel sounds normal. Skin: Warm and dry, no rashes on exposed skin, normal color. Back: Nontender to palpation over the thoracolumbar spine. No CVAT. Extremities: Trace bilateral lower extremity edema, no calf tenderness or swelling. Neurological: Alert and oriented. Moving all four extremities easily and equally.. Psychiatric: Normal affect. - Personal History Current Tetanus/Diphtheria Vaccine: Yes Tetanus Vaccine Date: 2013 - Medical/Surgical History Hx Asthma: No Hx Chronic Respiratory Disease: Yes Hx Diabetes: No Hx Cardiac Disease: Yes Hx Renal Disease: No Hx Cirrhosis: No Hx Alcoholism: No Hx HIV/AIDS: No Hx Splenectomy or Spleen Trauma: No Other PMH: PMH- chronic pain, chostochondritis, [place] 10/20, basal cell carcinoma May 2018, hld, gerd. PSHx: brain surgery for aneurysm, gall bladder, right thumb stents cardiac COPD - Social History Smoking Status: Heavy smoker Constitutional: Initial Vital Signs Temperature (C) 37.1 C 07/29/18 19:56 Heart Rate 112 H 07/29/18 19:56 Respiratory Rate 16 07/29/18 19:56 Blood Pressure 96/81 H 07/29/18 19:56 O2 Sat (%) 95 07/29/18 19:56 O2 Delivery Mode Room Air Allergies/Adverse Reactions: nitrofurantoin macrocrystalline [From Macrobid] Allergy (Severe, Verified 20:00) Swelling/neck,face,throat nitrofurantoin Allergy (Unknown, Verified 07/29/18 20:00) Swelling/neck,face,throat ciprofloxacin Allergy (Verified 07/29/18 20:00) "BURNING SENSATION IN MY FEET" codeine Allergy (Verified 07/29/18 20:00) Vomiting nitrofurantoin macrocrystalline Allergy (Unknown, Uncoded 04/08/18 06:12) Swelling/neck,face,throat Home Medications: Medication Instructions Recorded Ondansetron HCl [Zofran] 4 mg PO Q6 PRN 02/16/16 Pantoprazole Sodium [Protonix 40mg 40 mg PO DAILY 02/16/16 (*)] Metoprolol Tartrate [Lopressor 25 25 mg PO DAILY 05/09/17 mg (*)] Warfarin Sodium [Coumadin 2.5MG 2.5 mg PO SUTUTHSA@21 09/16/17 (*)] Acetaminophen [Tylenol 325mg (*)] 325 mg PO TID PRN 10/20/17 Pregabalin [Lyrica 75mg (*)] 75 mg PO BID 10/20/17 Warfarin Sodium [Coumadin 5MG (*)] 5 mg PO MWF 10/20/17 hydrOXYzine HCL [hydrOXYzine HCL 25 mg PO HS 10/20/17 (RX)] Ipratropium/Albuterol [Combivent 1 inh IH QID #0 10/22/17 Respimat Inhal [place](*)] Furosemide [Lasix 20 MG (*)] 20 mg PO DAILY #30 tab 04/16/18 Lisinopril [Zestril 5 mg (*)] 5 mg PO DAILY #30 tab 04/16/18 Loperamide HCl [Imodium 2 mg (*)] 2 mg PO QID PRN cap 04/16/18 oxyCODONE IR [Oxycodone Ir (*)] 15 mg PO TID PRN #0 04/16/18 Cephalexin [Keflex] 500 mg PO BID #10 cap 07/29/18 Medical Decision Making - Diagnostics EKG Interpretation: Two EKGs were performed and interpreted by ED physician in [facility]. ED Course/Re-evaluation: Female with h/o CAD and stenting, plus COPD and lung CA, presents with left sided chest pain. In ED she was pain free. She had two normal troponins and two EKGS. First EKG with sinus tachycardia at 104 and nonspecific T wave abnormalities. Second EKG with normal rate at 89 and nonspecific T wave abnormalities. She also has h/o PE with INR today of only 1.45. However, her pain has resolved and I do not think that she has recurrent PE--heart rate slightly high on arrival but quickly returned to normal range, no hypoxia, no LE symptoms. She understands that both PE and ACS are in the differential and she would like to return home. Her HEART score is 4, giving her a moderate risk of an acute major coronary event in 6 weeks. Hospitalization was recommended but she chooses to return home. I think that she is capable of making her own medical decisions and she understands that she could have a heart attack and even . She was involved in the decision making process. Danger signs that should prompt her to return to ED immediately were reviewed. HR 90 and BP 133/64 at [place]. No chest pain or arm pain. Her neighbor expressed concern to me about that patient's mental state and told me that she thinks she is hallucinating. I discussed this with the patient. The neighbor says that the patient is seeing things (people outside of her home ) that aren't really there. The patient insists otherwise. Patient denies suicidality, visual or auditory hallucinations, history of mental illness. It is impossible for me to know who is right in this situation. I suspect that there is much more to this situation than I know. I have encouraged the patient to follow up day after tomorrow with her PCP and to discuss the concerns of her neighbor with him. Differential Diagnosis: DDX includes but is not limited to ACS, PE, pneumonia/infection, costochondritis , musculoskeletal etiology. - Data Points Laboratory Results: Laboratory Results 07/29/18 20:18 07/29/18 20:18 Medications Given: Discontinued Medications Cephalexin (Keflex 500 Mg Prepack#4) 1 btl TAKEHOME EDNOW ONE PRN Reason: Protocol Stop: 07/29/18 22:47 Last Admin: 07/29/18 23:03 Dose: 1 btl Cephalexin HCl (Keflex) 500 mg PO EDNOW ONE PRN Reason: Protocol Stop: 07/29/18 22:48 Last Admin: 07/29/18 23:03 Dose: 500 mg Point of Care Test Results: Chemistry 07/29/18 07/29/18 22:11 20:21 POC Troponin I 0.00 ng/mL ng/mL 0.01 ng/mL ng/mL (0.00-0.08) (0.00-0.08) Departure - Departure Disposition: Home, Routine, Self-Care Clinical Impression: Chest pain Qualifiers: Chest pain type: other chest pain Qualified Code(s): R07.89 - Other chest pain ; R07.8 - Other chest pain Condition: Good Instructions: Chest Pain (ED), Urinary Tract Infection in Women (ED) Additional Instructions: I am starting you on antibiotics, you received your 1st dose in the emergency room tonight. The antibiotic is call Keflex. You should take it twice daily for 7 days. If you have recurrent chest pain, left arm pain, any new or concerning symptoms you should be re-evaluated. Please see your doctor on Tuesday. Call his office to arrange to be seen. Referrals: Juventino Bliss, [Primary Care Provider] - As per Instructions Prescriptions: Cephalexin [Keflex] 500 mg PO BID #10 cap
[2018-07-29 21:23] LABS: INR 1.45 (0.83-1.16); PROTIME(PATIENT) 17.8 SEC (12.0-15.0)
[2018-07-29] MEDS ORDERED: CEPHALEXIN 500MG PREPACK#4 BTL TAKEHOME ONE (22:46)
[2018-07-29] MEDS ORDERED: CEPHALEXIN 500 MG CAP PO ONE (22:47)
[2018-07-30 03:24] VITALS: BP 133/64
--- NOTE | 2018-07-30 17:32 | CPEKG ---
Test Reason : OPEN Blood Pressure : / mmHG Vent. Rate : 089 BPM Atrial Rate : 089 BPM P-R Int : 140 ms QRS Dur : 076 ms QT Int : 406 ms P-R-T Axes : 056 012 031 degrees QTc Int : 495 ms Sinus rhythm Low voltage, extremity leads Nonspecific T abnrm, anterolateral leads Borderline prolonged QT interval Confirmed by Marilyn Holley ([id number]) on 07/30/2018 5:31:34 PM Referred By: Confirmed By:Marilyn Holley
--- NOTE | 2018-07-30 17:32 | CPEKG ---
Test Reason : OPEN Blood Pressure : / mmHG Vent. Rate : 104 BPM Atrial Rate : 104 BPM P-R Int : 142 ms QRS Dur : 069 ms QT Int : 401 ms P-R-T Axes : 044 005 092 degrees QTc Int : 528 ms Sinus tachycardia Low voltage, extremity leads Nonspecific repol abnormality, diffuse leads Prolonged QT interval Confirmed by Marilyn Holley ([id number]) on 07/30/2018 5:31:26 PM Referred By: Confirmed By:Marilyn Holley
== END 2018-07-29 23:06 | disposition home or self-care (01) ==
DX: R07.9 Chest pain, unspecified (principal); I25.10 Atherosclerotic heart disease of native coronary artery without angina pectoris; Z95.5 Presence of coronary angioplasty implant and graft; C34.90 Malignant neoplasm of unspecified part of unspecified bronchus or lung; J44.9 Chronic obstructive pulmonary disease, unspecified; Z79.01 Long term (current) use of anticoagulants
CPT/HCPCS: 84484-PO

== ENCOUNTER → 2018-09-21 | Outpatient (CLI) | payer MEDICAID ==
[~2018-09-21] MED LIST changes: -DEXAMETHASONE 10 MG/ML VIAL ONE; +DEXAMETHASONE 4 MG/ML VIAL IVP PRN; +GADOBUTROL 10 ML VIAL IVP ONE; +IOPAMIDOL (ISOVUE-300) 100 ML BTL ONE; -LIDOCAINE 2% JELLY 5 ML TUBE ONE; +NALOXONE HCL 0.4 MG/ML INJ IVP PRN; +ONDANSETRON 4 MG/2 ML VIAL IVP PRN; -ONDANSETRON 4 MG/2 ML VIAL ONE; +PROMETHAZINE HCL 25 MG/ML INJ IVP PRN; +PROPOFOL 200 MG/20 ML VIAL ONE; +PROPOFOL/EMULSION 500 MG/50 ML BOTTLE IV ONE
[2018-09-21 11:14] VITALS: BP 123/76
== END ==
LOC: FIMAGING 07:17
PROVIDERS: ATTEND Internal Medicine Hematology & Oncology
DX: C34.90 Malignant neoplasm of unspecified part of unspecified bronchus or lung (principal)
CPT/HCPCS: A9585; J2704; Q9967

== ENCOUNTER 2018-10-26 14:26 | Emergency (ER) | payer MEDICAID ==
--- NOTE | 2018-10-26 14:56 | EDPHY ---
H & P Stated Complaint: sob x 5 days Time Seen by Provider: 10/26/18 14:42 HPI/ROS: CHIEF COMPLAINT: Shortness of breath HISTORY OF PRESENT ILLNESS: 62-year-old female with lung cancer, COPD and PE presents with shortness of breath. 5 day history of gradually increasing exertional shortness of breath. Now feels short of breath with walking from her bathroom to her bedroom. Associated with generalized weakness. This morning, she tried to walk to the car, fell and then crawled on her knees to the car. According to her , she has been more confused than usual recently. No chest pain, change in cough, fever or recent URI. REVIEW OF SYSTEMS: complete 10 point ROS reviewed and is negative except for the noted elements in the HPI - Personal History Current Tetanus Diphtheria and Acellular Pertussis (TDAP): Yes Tetanus Vaccine Date: 2013 - Medical/Surgical History Hx Asthma: No Hx Chronic Respiratory Disease: Yes Hx Diabetes: No Hx Cardiac Disease: Yes Hx Renal Disease: No Hx Cirrhosis: No Hx Alcoholism: No Hx HIV/AIDS: No Hx Splenectomy or Spleen Trauma: No Other PMH: PMH- chronic pain, chostochondritis, RI 10/20, basal cell carcinoma May 2018, hld, gerd. PSHx: brain surgery for aneurysm, gall bladder, right thumb stents cardiac COPD - Social History Smoking Status: Heavy smoker Alcohol Use: Sober Drug Use: None Additional Social History: - Physical Exam Exam: General Appearance: Alert, pleasant Eyes: Pupils equal and round, no conjunctival pallor or injection ENT, Mouth: Mucous membranes moist Neck: Normal inspection, no tenderness, ROM without pain Respiratory: Diffuse expiratory wheezing Cardiovascular: Regular rate and rhythm Gastrointestinal: Abdomen is soft and nontender Neurological: A&O, motor 5/5, sensory grossly intact Skin: Warm and dry, no rash Extremities: Nontender, no pedal edema Psychiatric: Mood and affect normal Constitutional: Initial Vital Signs Temperature (C) 36.2 C 10/26/18 14:35 Heart Rate 112 H 10/26/18 14:35 Respiratory Rate 18 10/26/18 14:35 Blood Pressure 99/85 H 10/26/18 14:35 O2 Sat (%) 100 10/26/18 14:35 O2 Delivery Mode Room Air Allergies/Adverse Reactions: nitrofurantoin macrocrystalline [From Macrobid] Allergy (Severe, Verified 20:05) Swelling/neck,face,throat nitrofurantoin Allergy (Unknown, Unverified 10/28/18 20:05) Swelling/neck,face,throat ciprofloxacin Allergy (Verified 10/28/18 20:05) "BURNING SENSATION IN MY FEET" codeine Allergy (Verified 10/28/18 20:05) Vomiting Penicillins Allergy (Verified 10/28/18 20:05) nitrofurantoin macrocrystalline Allergy (Unknown, Uncoded 10/28/18 20:05) Swelling/neck,face,throat Home Medications: Medication Instructions Recorded Ondansetron HCl [Zofran] 4 mg PO Q6 PRN 02/16/16 Pantoprazole Sodium [Protonix 40mg 40 mg PO DAILY 02/16/16 (*)] Warfarin Sodium [Coumadin 2.5MG 2.5 mg PO SUTUTHSA@21 09/16/17 (*)] Acetaminophen [Tylenol 325mg (*)] 325 mg PO TID PRN 10/20/17 Pregabalin [Lyrica 75mg (*)] 75 mg PO BID 10/20/17 Warfarin Sodium [Coumadin 5MG (*)] 5 mg PO MWF 10/20/17 hydrOXYzine HCL [hydrOXYzine HCL 25 mg PO HS 10/20/17 (RX)] Ipratropium/Albuterol [Combivent 1 inh IH QID #0 10/22/17 Respimat Inhal [place](*)] Furosemide [Lasix 20 MG (*)] 20 mg PO DAILY #30 tab 04/16/18 Loperamide HCl [Imodium 2 mg (*)] 2 mg PO QID PRN cap 04/16/18 oxyCODONE IR [Oxycodone Ir (*)] 15 mg PO TID PRN #0 04/16/18 Medical Decision Making - Diagnostics EKG Interpretation: EKG interpreted by me reveals normal sinus rhythm, rate 95, low voltage in the limb leads, prolonged QT interval. Interpretation: Abnormal EKG Imaging Results: Chest X-Ray 10/26/18 16:54 Impression: 1. Stable to minimal increase in size of left lower lobe pulmonary mass. 2. Hyperexpanded lungs with underlying COPD and emphysema. 3. Stable mucus plugging or tumor infiltration to the left lower lobe. Imaging: I viewed and interpreted images myself ED Course/Re-evaluation: This patient presents with exertional shortness of breath. On physical exam she has diffuse expiratory wheezing. A DuoNeb was given and Solu-Medrol 125 mg IV. Stat EKG reveals no evidence of ischemia. ddimer elevated, h/o PE, CTA chest ordered. 4:40p: declines CT d/t claustrophobia. Multiple options d/w pt, still refuses. PT/INR pending, if in therapeutic range unlikely PE. Chest x-ray obtained and is unremarkable. INR is 3.2, unlikely that she would have a pulmonary embolism. I strongly encouraged admission for this patient for further evaluation of shortness of breath. However she refuses. agrees with her decision. She has inhalers at home and will use them. Declines home steroids. She is a competent decision maker and clearly understands the risks and benefits of these decisions. She will return for worsening symptoms or any concerns. Differential Diagnosis: Differential diagnosis includes though it is not limited to pneumonia, pneumothorax, pulmonary embolism, aortic dissection, pericarditis, acute coronary syndrome. - Data Points Laboratory Results: Laboratory Results 10/26/18 15:15 10/26/18 15:15 Medications Given: Discontinued Medications Albuterol/Ipratropium (Duoneb) 3 ml IH EDNOW ONE Stop: 10/26/18 14:53 Last Admin: 10/26/18 15:32 Dose: 3 ml Lorazepam (Ativan Injection) 1 mg IVP EDNOW ONE Stop: 10/26/18 16:37 Last Admin: 10/26/18 16:54 Dose: Not Given Methylprednisolone Sodium Succinate (Solu-Medrol) 125 mg IVP EDNOW ONE Stop: 10/26/18 14:53 Last Admin: 10/26/18 15:32 Dose: 125 mg Potassium Chloride (Klor-Con) 20 meq PO EDNOW ONE Stop: 10/26/18 15:41 Last Admin: 10/26/18 15:52 Dose: 20 meq Point of Care Test Results: Chemistry 10/26/18 15:37 POC Troponin I 0.00 ng/mL ng/mL (0.00-0.08) Departure - Departure Disposition: Home, Routine, Self-Care Clinical Impression: Dyspnea Qualifiers: Dyspnea type: dyspnea on exertion Qualified Code(s): R06.09 - Other forms of dyspnea Condition: Fair Instructions: Dyspnea (ED) Additional Instructions: I have advised you to stay in the hospital for further evaluation and treatment of shortness of breath. Please return for worsening symptoms or any concerns. Please follow-up with your physician probably. Referrals: Juventino Bliss, [Primary Care Provider] - As per Instructions (Call to make an appointment)
[2018-10-26 15:28] LABS: PLATELET COUNT 421 10^3/uL (150-400)
[2018-10-26] MEDS: IPRATROPIUM/ALBUTEROL 3 ML DEYVIAL IH ONE (15:32)
[2018-10-26] MEDS: methylPREDNISolone SOD SUCC 125 MG/2 ML VIAL IVP ONE (15:32)
[2018-10-26] MEDS: POTASSIUM CL 10 MEQ TAB PO ONE (15:52)
[2018-10-26] MEDS ORDERED: LORazepam 2 MG/ML INJ ONE (16:34)
[2018-10-26] MEDS ORDERED: IOPAMIDOL (ISOVUE 370) 100 ML BTL IV ONE (16:42)
[2018-10-26] MEDS: LORazepam 2 MG/ML INJ IVP ONE (16:54)
[2018-10-26 17:23] LABS: INR 3.24 (0.83-1.16); PROTIME(PATIENT) 32.9 SEC (12.0-15.0)
[2018-10-26 18:22] VITALS: BP 107/77
--- NOTE | 2018-10-26 21:00 | CPEKG ---
Test Reason : OPEN Blood Pressure : / mmHG Vent. Rate : 095 BPM Atrial Rate : 096 BPM P-R Int : 139 ms QRS Dur : 076 ms QT Int : 425 ms P-R-T Axes : 083 -33 170 degrees QTc Int : 535 ms Sinus rhythm Probable left atrial enlargement Low voltage, extremity leads Prolonged QT interval Confirmed by Jaimee Kwok ([id number]) on 10/26/2018 8:59:23 PM Referred By: Confirmed By:Jaimee Kwok
== END 2018-10-26 18:26 | disposition home or self-care (01) ==
DX: R06.09 Other forms of dyspnea (principal); C34.90 Malignant neoplasm of unspecified part of unspecified bronchus or lung; J44.9 Chronic obstructive pulmonary disease, unspecified; I25.10 Atherosclerotic heart disease of native coronary artery without angina pectoris; E78.5 Hyperlipidemia, unspecified; K21.9 Gastro-esophageal reflux disease without esophagitis; G89.29 Other chronic pain; F17.200 Nicotine dependence, unspecified, uncomplicated; Z79.01 Long term (current) use of anticoagulants; Z86.711 Personal history of pulmonary embolism; Z95.5 Presence of coronary angioplasty implant and graft
CPT/HCPCS: 84484-ER; 96374; J2060; J2930; Q9967

== ENCOUNTER 2018-10-28 19:56 | Emergency (ER) | payer MEDICAID ==
[2018-10-28 20:05] VITALS: BP 106/71
[2018-10-28] MEDS ORDERED: IPRATROPIUM/ALBUTEROL 3 ML DEYVIAL IH ONE (20:07)
[2018-10-28] MEDS ORDERED: predniSONE 20 MG TAB PO ONE (20:07)
--- NOTE | 2018-10-28 20:07 | EDPHY ---
H & P Time Seen by Provider: 10/28/18 19:58 HPI/ROS: HPI Shortness of breath. 62-year-old female who is familiar to our emergency department. She has a history of stage IV lung cancer. She is in transition to hospice at this time. She presents to the emergency department by ambulance with complaint of shortness of breath. EMS reports that she has a stressful home situation with her . She does have home oxygen. She states that she does use it but she presents to the emergency department off oxygen. EMS feels that her stress at home with her is the primary reason that she called 911 and was brought to the emergency department. She states now that she is in the emergency department that she is feeling better. She is not dyspneic. She does not appear to be in any distress. Her room air pulse oximetry is currently 94%. ROS: Constitutional: No fever, no chills. No weakness. Eyes: No discharge. No changes in vision. ENT: No sore throat. No nasal congestion or rhinorrhea. Respiratory: No cough. As above. Cardiac: No chest pain, no palpitations. Gastrointestinal: No abdominal pain, no vomiting, no diarrhea. Genitourinary: No hematuria. No dysuria or increased frequency with urination. Musculoskeletal: No back pain. No neck pain. No myalgias or arthralgias. Skin: No rashes. Neurological: No headache. No focal weakness or altered sensation. Past medical history: Chronic pain, dementia, costal chondritis, NE in October 2014, basal cell carcinoma, GERD, COPD, as above. Past surgical history includes brain aneurysm with surgery, gallbladder, cardiac stents Social history: Heavy smoker. No alcohol. Lives with her . Physical Exam: General Appearance: Alert, pleasant, she is not in distress. Heavy odor of cigarette smoke. This patient is responding to questions appropriately and in full sentences. This patient appears well-hydrated and well-nourished. Eyes: Pupils equal and round no pallor or injection. No lid edema, erythema or injection. Respiratory: There are no retractions, lungs lung sounds are diminished bilaterally with scant wheezing upper wells on exhalation. No tachypnea. Cardiovascular: Regular rate and rhythm. No murmur. Gastrointestinal: Abdomen is soft and nontender, no masses, bowel sounds normal. No focal tenderness at McBurney's point. No Christianson sign. Neurological: Motor sensory function is grossly intact. Cranial nerves are normal. Gait is normal. Skin: Warm and dry, no rashes. Musculoskeletal: Neck is supple and nontender. Extremities are symmetrical. All joints range without pain or impingement. Psychiatric: No agitation. No depression. Database: EKG: Imaging: Chest x-ray PA and lateral; no acute pathology. Stable in comparison to study on October 26 of this year. Interpreted by me. Procedures: Emergency department course: Triage vital signs reviewed and are normal. She currently is 94% on room air. She was given a DuoNeb, x2 [id number] she was given 60 mg of prednisone orally. Chest x-ray obtained. I reviewed her workup from her previous emergency department visit on October 26. Chest x-ray at that time was stable in comparison to previous. 8:45 p.m., patient re-evaluated. Resting comfortably at this time. She is on 2 L of oxygen nasal cannula. Pulse oximetry 97%. She is not in any distress. Repeat pulmonary exam. She has improved air movement bilaterally. No significant wheezing. I discussed admission for observation overnight. She does not want to do this. In my professional opinion she has capacitance to make decisions and understands the risks of returning home without further hospital evaluation and management. She does have home oxygen. I discussed follow-up with her primary care physician this coming week for re-evaluation. Return to emergency department precautions were thoroughly reviewed. She was discharged from the emergency department in good condition. She will be picked up by a family member or her and taken home. Differential Diagnosis: The differential diagnosis on this patient includes but is not limited to COPD exacerbation, anxiety. Pneumonia, CHF exacerbation, pulmonary embolism unlikely. This represents a partial list of diagnoses considered. These considerations are based on history, physical exam, past history, reassessment and diagnostic testing. Smoking Status: Heavy smoker Constitutional: Initial Vital Signs Temperature (C) 36.6 C 10/28/18 20:00 Heart Rate 84 10/28/18 20:00 Respiratory Rate 18 10/28/18 20:00 Blood Pressure 106/71 10/28/18 20:00 O2 Sat (%) 96 10/28/18 20:00 O2 Delivery Mode Room Air O2 (L/minute) 2 Allergies/Adverse Reactions: nitrofurantoin macrocrystalline [From Macrobid] Allergy (Severe, Verified 20:05) Swelling/neck,face,throat nitrofurantoin Allergy (Unknown, Unverified 10/28/18 20:05) Swelling/neck,face,throat ciprofloxacin Allergy (Verified 10/28/18 20:05) "BURNING SENSATION IN MY FEET" codeine Allergy (Verified 10/28/18 20:05) Vomiting Penicillins Allergy (Verified 10/28/18 20:05) nitrofurantoin macrocrystalline Allergy (Unknown, Uncoded 10/28/18 20:05) Swelling/neck,face,throat Home Medications: Medication Instructions Recorded Ondansetron HCl [Zofran] 4 mg PO Q6 PRN 02/16/16 Pantoprazole Sodium [Protonix 40mg 40 mg PO DAILY 02/16/16 (*)] Warfarin Sodium [Coumadin 2.5MG 2.5 mg PO SUTUTHSA@21 09/16/17 (*)] Acetaminophen [Tylenol 325mg (*)] 325 mg PO TID PRN 10/20/17 Pregabalin [Lyrica 75mg (*)] 75 mg PO BID 10/20/17 Warfarin Sodium [Coumadin 5MG (*)] 5 mg PO MWF 10/20/17 hydrOXYzine HCL [hydrOXYzine HCL 25 mg PO HS 10/20/17 (RX)] Ipratropium/Albuterol [Combivent 1 inh IH QID #0 10/22/17 Respimat Inhal [place](*)] Furosemide [Lasix 20 MG (*)] 20 mg PO DAILY #30 tab 04/16/18 Loperamide HCl [Imodium 2 mg (*)] 2 mg PO QID PRN cap 04/16/18 oxyCODONE IR [Oxycodone Ir (*)] 15 mg PO TID PRN #0 04/16/18 Medical Decision Making - Diagnostics Imaging Results: Imaging Impressions Chest X-Ray 10/28/18 20:08 Impression: 1. Stable left lower lobe mass. 2. Stable mild prominence of pulmonary vasculature centrally. This can be seen with pulmonary hypertension. 3. COPD. - Data Points Medications Given: Discontinued Medications Albuterol/Ipratropium (Duoneb) 6 ml IH EDNOW ONE Stop: 10/28/18 20:08 Last Admin: 10/28/18 20:17 Dose: 6 ml Prednisone (Prednisone) 60 mg PO EDNOW ONE Stop: 10/28/18 20:08 Last Admin: 10/28/18 20:17 Dose: 60 mg Departure - Departure Disposition: Home, Routine, Self-Care Clinical Impression: COPD exacerbation, History of lung cancer Condition: Good Instructions: COPD (Chronic Obstructive Pulmonary Disease) (ED) Additional Instructions: Read and follow provided instructions. Follow-up with your primary care physician on Tuesday for re-evaluation as discussed. If you have any concerns, are having shortness of breath or any difficulty breathing return to the emergency department by ambulance. Albuterol inhaler: 1-2 puffs every 2-4 hours as needed for shortness of breath. Where your home oxygen as discussed continuously. Take medication as prescribed. Referrals: Patient,NotPresent [Unknown] - As per Instructions
== END 2018-10-28 21:46 | disposition home or self-care (01) ==
LOC: EDUNIT#
DX: J44.1 Chronic obstructive pulmonary disease with (acute) exacerbation (principal); F17.200 Nicotine dependence, unspecified, uncomplicated; Z85.118 Personal history of other malignant neoplasm of bronchus and lung
CPT/HCPCS: J7512

== ENCOUNTER 2018-11-03 17:40 | Emergency (ER) | payer MEDICAID ==
--- NOTE | 2018-11-03 17:49 | EDPHY ---
H & P Time Seen by Provider: 11/03/18 17:41 HPI/ROS: CHIEF COMPLAINT: Facial trauma limited activation HISTORY OF PRESENT ILLNESS: The patient got off the toilet because she has some constipation due to her chronic opioids. She crawled over to the CT so she could stand up more easily lost her balance and crashed into the floor hitting the left side of her face on the ground. Presents by EMS for head trauma evaluation on warfarin. Denies headache or visual symptoms or loss of consciousness. No weakness or numbness or vertigo. No trouble with speech or thought or strength or sensation in extremities REVIEW OF SYSTEMS: Eye: no change in vision ENT: no sore throat Cardiac: no chest pain or syncope Pulmonary: no cough or SOB Abdomen: no vomiting, diarrhea, abdominal pain Musculoskeletal: no back pain or neck pain Skin: no rash Neuro: no headache Constitutional: no fever : no urinary symptoms A comprehensive 10 point review of systems is otherwise negative aside from elements mentioned in the history of present illness. PAST MEDICAL HISTORY: Past Medical from admission H&P dated 04/08/2018 personally reviewed includes lung cancer, COPD, chronic pain, anemia, peripheral neuropathy, pulmonary embolism on warfarin, coronary disease, hepatitis-C. History of craniotomy for subdural Social history: , continues to smoke General Appearance: Alert and conversant, cooperative. Eyes: No scleral icterus. Pupils equal reactive extraocular motion intact ENT, Mouth: Normal mucous membranes. No facial bony tenderness. Respiratory: Normal respiratory effort, breath sounds equal, lungs are clear to auscultation. Cardiovascular: Regular rate and rhythm. Gastrointestinal: Abdomen is soft and non tender. Neurological: Alert, face symmetric, normal motor and sensory in extremities. Skin: No laceration or bruising. Musculoskeletal: No spinal or extremity deformity or tenderness. Psychiatric: Not agitated. Emergency Department course/MDM: 1814: Downgraded to no level trauma activation. Head CT discussed and consented for head trauma on warfarin. 1901: Patient's is here. Patient is refusing CT because she is " scared of the test and the machine" and "feels fine" now. She does look well and has normal speech and mentation. She does not have any bruising or garcia on her face. She clearly has capacity to make decisions regarding her care and her is here and cannot convince her otherwise. She is warned of the risks of refusing including but not limited to delay or inability to diagnose intracranial bleed, disability, . She states she will take these risks and wants to be discharged. She is encouraged to return if she changes her mind. Head injury instructions discussed with the . Smoking Status: Heavy smoker Constitutional: Initial Vital Signs Temperature (C) 36.3 C 11/03/18 17:40 Heart Rate 107 H 11/03/18 17:40 Respiratory Rate 18 11/03/18 17:40 Blood Pressure 96/62 L 11/03/18 17:40 O2 Sat (%) 98 11/03/18 17:40 O2 Delivery Mode Room Air Allergies/Adverse Reactions: nitrofurantoin macrocrystalline [From Macrobid] Allergy (Severe, Verified 20:05) Swelling/neck,face,throat nitrofurantoin Allergy (Unknown, Unverified 10/28/18 20:05) Swelling/neck,face,throat ciprofloxacin Allergy (Verified 10/28/18 20:05) "BURNING SENSATION IN MY FEET" codeine Allergy (Verified 10/28/18 20:05) Vomiting Penicillins Allergy (Verified 10/28/18 20:05) nitrofurantoin macrocrystalline Allergy (Unknown, Uncoded 10/28/18 20:05) Swelling/neck,face,throat Home Medications: Medication Instructions Recorded Ondansetron HCl [Zofran] 4 mg PO Q6 PRN 02/16/16 Pantoprazole Sodium [Protonix 40mg 40 mg PO DAILY 02/16/16 (*)] Warfarin Sodium [Coumadin 2.5MG 2.5 mg PO SUTUTHSA@21 09/16/17 (*)] Acetaminophen [Tylenol 325mg (*)] 325 mg PO TID PRN 10/20/17 Warfarin Sodium [Coumadin 5MG (*)] 5 mg PO MWF 10/20/17 hydrOXYzine HCL [hydrOXYzine HCL 25 mg PO HS 10/20/17 (RX)] Ipratropium/Albuterol [Combivent 1 inh IH QID #0 10/22/17 Respimat Inhal [place](*)] Loperamide HCl [Imodium 2 mg (*)] 2 mg PO QID PRN cap 04/16/18 oxyCODONE IR [Oxycodone Ir (*)] 15 mg PO TID PRN #0 04/16/18 Departure - Departure Disposition: Home, Routine, Self-Care Clinical Impression: Left face contusion Condition: Good Instructions: Head Injury (ED), Contusion in Adults (ED) Referrals: Juventino Bliss DO [Primary Care Provider] - As per Instructions
[2018-11-03 19:08] VITALS: BP 91/75
== END 2018-11-03 19:09 | disposition home or self-care (01) ==
LOC: EDUNIT#
DX: S00.83XA Contusion of other part of head, initial encounter (principal); Z79.01 Long term (current) use of anticoagulants; W01.198A Fall on same level from slipping, tripping and stumbling with subsequent striking against other object, initial encounter; Y92.002 Bathroom of unspecified non-institutional (private) residence as the place of occurrence of the external cause; Y93.89 Activity, other specified; Y99.8 Other external cause status

== ENCOUNTER 2018-11-21 06:59 | Emergency (ER) | payer MEDICAID ==
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
[2018-11-21] MEDS ORDERED: oxyCODONE CR 30 MG TAB PO ONE (08:15)
[2018-11-21 08:30] LABS: PLATELET COUNT 136 10^3/uL (150-400)
[2018-11-21 08:39] LABS: INR 1.07 (0.83-1.16); PROTIME(PATIENT) 14.1 SEC (12.0-15.0)
[2018-11-21 14:42] VITALS: BP 88/57
--- NOTE | 2018-11-21 19:06 | ASMTCMCOM ---
CM Note CM Note Notes: Pt presented to the ED via EMS from home where she lives with her , Jono Ariza ([phone]) Pt already a client w/[facility] ([phone]). Verónica ([phone]), RN w/[facility] at bedside. Verónica had been working w/Heidi [facility] ([phone]) to see about getting pt placed into their inpatient care center or at a SNF for respite and possible LTC. Heidi communicating w/Jono re:pt's admission to SNF for respite and possible LTC placement. Pt accepted to [facility]; [facility] came and assessed pt in the ED. Sent ED Report and info to [facility] and [facility] via [employer]. Hard-copy Faxed ADMIT orders to [facility] and [facility] due to Fax Attach not going through into [employer]. Confirmed receival. Heidi mijares/[facility] arranged [facility] stretcher transport for 1430. ED RN given [facility] # to call to give report. PCS to be completed by ED RN due to CM time constraint. CM available for further assistance. Date Signed: 11/21/2018 07:06 PM Electronically Signed By:Sarah Lindsay RN
--- NOTE | 2018-11-21 19:07 | ASDISCHSUM ---
Discharge Information Plan Status:Hospice-SNF Medically Cleared to Leave: Discharge Date:11/21/2018 02:42 PM D/C Disposition: ADT D/C Disposition:Home, Routine, Self-Care Projected Discharge Date:11/21/2018 11:00 AM Transportation at D/C:ALS/BLS Discharge Delay Reason: Follow-Up Date:11/21/2018 11:00 AM Discharge Slot: Final Diagnosis: Placement Information Referral Type:*Custodial/SNF Referral ID:[id number] Provider Name:[facility] [place] Address 1:[address] Address 2: City:[place] Selection Factors: State:[place] Referral Type:*Hospice Referral ID:[id number] Provider [facility] Address 1:[address] Address 2: City:[place] Selection Factors: State:[place] Patient Contact Information Contact Name:SWATI Relationship: Address:[address] Work Phone: City:[facility] [facility] Phone: [facility]/Zip Code:[place] [address] Email: Financial Information Financial Class:Medicaid Primary Plan Desc:MEDICAID HEALTH [facility] Primary Plan Number:[id number] Secondary Plan Desc: Secondary Plan Number: Assessment Information [facility] CM Progress Note CM Note CM Note Notes: Pt presented to the ED via EMS from home where she lives with her , Jono Ariza ([phone]) Pt already a client w/[facility] ([phone]). Verónica ([phone]), JEAN w/[facility] at bedside. Verónica had been working w/Heidi Bynum ([phone]) to see about getting pt placed into their inpatient care center or at a SNF for respite and possible LTC. Heidi mijares/Jono re:pt's admission to SNF for respite and possible LTC placement. Pt accepted to [facility]; [facility] came and assessed pt in the ED. Sent ED Report and info to [facility] and [facility] via [employer]. Hard-copy Faxed ADMIT orders to [facility] and [facility] due to Fax Attach not going through into [employer]. Confirmed receival. Heidi mijares/[facility] arranged [facility] stretcher transport for 1430. ED RN given [facility] # to call to give report. PCS to be completed by ED RN due to CM time constraint. CM available for further assistance. Date Signed: 11/21/2018 07:06 PM Electronically Signed By:Sarah Lindsay RN Intervention Information
== END 2018-11-21 14:42 | disposition home or self-care (01) ==
LOC: EDUNIT#
DX: S80.212A Abrasion, left knee, initial encounter (principal); S40.212A Abrasion of left shoulder, initial encounter; Z79.01 Long term (current) use of anticoagulants; W19.XXXA Unspecified fall, initial encounter; Y92.9 Unspecified place or not applicable; Y93.9 Activity, unspecified; Y99.9 Unspecified external cause status